=== PATIENT | female | born 1945 | race Caucasian/White ===

== ENCOUNTER 2018-01-08 01:39 | Outpatient (CLI) | payer MEDICARE, BC, SELFPAY ==
[2018-01-08 13:10] LABS: HCT 36.3 % (36.0-46.0); HGB 11.4 g/dL (12.0-15.5); Mean Corp. HGB Concentration 31.4 g/dL (32.0-36.0); Mean Corpuscular Volume 82.9 fL (80-95); Mean Platelet Volume 10.7 fL (8.0-11.0); Platelet Count 372 x1000/uL (130-400); RBC 4.38 m/cumm (4.00-5.20); RBC Distribution Width 14.1 % (11.7-14.6); White Blood Cell Count 7.98 k/cumm (4.4-10.8)
[2018-01-08 13:24] LABS: Iron 37 ug/dL (50-175)
[2018-01-08 13:25] LABS: Hemoglobin A1C 7.5 % (4.5-6.2)
== END 2018-01-08 01:59 ==
PROVIDERS: PCP Family Medicine; Visit Provider Family Medicine
DX: I10 Essential (primary) hypertension (principal); E11.9 Type 2 diabetes mellitus without complications; D50.8 Other iron deficiency anemias
CPT/HCPCS: 36415; 85027; 83036; 83540

== ENCOUNTER 2018-04-06 00:59 | Outpatient (CLI) | payer MEDICARE, BC, SELFPAY ==
[2018-04-06 11:42] LABS: Hemoglobin A1C 8.3 % (4.5-6.2)
[2018-04-06 13:14] LABS: Iron 35 ug/dL (50-175)
[2018-04-06 13:28] LABS: Ferritin 45 ng/mL (8-388)
== END 2018-04-06 01:19 ==
PROVIDERS: PCP Family Medicine; Visit Provider Family Medicine
DX: M25.551 Pain in right hip (principal); E11.9 Type 2 diabetes mellitus without complications; D64.9 Anemia, unspecified; I10 Essential (primary) hypertension
CPT/HCPCS: 36415; 82728; 83036; 83540

== ENCOUNTER 2018-08-29 21:50 | Emergency (ER) | payer MEDICARE, BC, SELFPAY ==
[2018-08-29 22:13] VITALS: BP 140/79; PULSE 80; RESP 16; TEMP 36.5; O2SAT 95
--- NOTE | 2018-08-29 22:42 | ED.GENADUL_ITS ---
Discharge Plan Disposition Patient Disposition: HOME Condition: Good Discharge Details Chief Complaint: DentalOral Clinical Impression: Lesion of tongue Primary Care Provider: Pat Pearson ED Provider: Yao Jaramillo Home Meds and New Rx's Prescriptions: No Action metformin 1,000 mg tablet See Rx Instructions PO BID Qty: 270 RF: 4 glipizide 10 mg tablet extended release 24hr 10 mg PO DAILY Qty: 90 RF: 5 aspirin [Ecotrin Low Strength] 81 MG tablet,delayed release (DR/EC) 81 mg PO DAILY RF: 0 glucosam-chond fg-resgln-xh ac 1 EACH capsule 1 ea PO BID RF: 0 calcium carbonate-vitamin D3 [Os-Reji 500 + D3] 1 EACH tablet 1 ea PO BID RF: 0 CENTRUM SILVER TABLET 1 EACH tablet 1 ea PO DAILY RF: 0 ascorbic acid (vitamin C) [Vitamin C] 500 MG tablet 1 tab PO DAILY RF: 0 blood-glucose meter 1 EACH misc 1 ea Miscellaneous ONCE Qty: 1 RF: 0 amoxicillin 500 MG tablet 2 g PO ONCE RF: 0 Blood Glucose Test 1 EACH strip 1 ea Miscellaneous DAILY Qty: 100 RF: 12 lancets 1 EACH misc 1 ea Miscellaneous DAILY Qty: 100 RF: 4 Fiber Gummies (with chromium) 1 EACH tablet,chewable 1 ea PO DAILY RF: 0 albuterol sulfate [ProAir HFA] 8.5 GM HFA aerosol inhaler 2 puff Inhalation Q4H PRN Qty: 1 RF: 12 ferrous sulfate [Iron (ferrous sulfate)] 325 MG tablet 325 mg PO DAILY RF: 0 lisinopril 5 mg tablet 5 mg PO DAILY Qty: 90 RF: 12 pravastatin 20 mg tablet 20 mg PO DAILY Qty: 90 RF: 12 sertraline [Zoloft] 100 mg tablet 50 mg PO DAILY Qty: 45 RF: 4 Discharge Instructions Additional Instructions: Please switch to a soft diet, avoid any foods with which require excessive chewing. You will be contacted for an appointment with the ENT specialist. If you notice any bleeding, please apply firm pressure with 3-4 fingers for 5 to 10 minutes straight. If you notice any worsening of your symptoms, or any new symptoms such as vomiting, diarrhea, fever, chills, shortness of breath, chest pain, numbness, weakness, or fainting , please return immediately to the emergency department for reevaluation. Please follow up with your primary care provider as soon as possible for reassessment and reevaluation. As always, it was a pleasure participating in your medical care today. Referrals: Pat Pearson MD, DC [Primary Care Provider] - Medical Decision Making This is a pleasant 72-year-old female who presents with a lesion on her tongue for the last 3 weeks, she has dental referral already. Tonight she was eating and cottage on her teeth which caused it to bleed. She applied pressure and came to the ER but upon arrival to bleeding had stopped. Exam demonstrates a notably vascular but otherwise nonbleeding lesion on the tip of her tongue. Pain is well controlled and bleeding is completely ceased. This time I do not think that any acute intervention is currently indicated. We will continue to recommend follow-up with her dentist, but we will also given ENT referral for further outpatient evaluation. I have extensively reviewed the treatment plan and discharge instructions with the patient and their family. I have addressed all patient concerns at this time. The patient and family was made aware of what symptoms to monitor for that would warrant a return to the emergency department. Discussed the plan with the patient and family, they demonstrate verbal understanding and agreement with our assessment and plan at this time. HPI General Date/Time Provider Initiated Documentation: 08/29/18 21:51 . HPI Narrative: This is a 72-year-old female with no significant pertinent past medical history who is on no blood thinners but does take a daily aspirin who presents today for evaluation of a lesion on her tongue. She states that she has had this lesion for the last 3 weeks, she is followed up with her family do ray who has scheduled an outpatient referral with her dental office for removal. She states that today while eating she cut it on her tongue and then had some mild to moderate bleeding for the last hour or so. She came to the ER for further evaluation. By the time she arrived the bleeding had stopped. She denies any other complaints. No other modifying factors. She denies any history of oral cancer, and states that initially it came on when she had bit it after catching it on a sharp tooth. She denies any symptoms of fever chills or weight loss. Related Data Home Medications Medication Instructions Recorded Confirmed Centrum Silver Tablet 1 ea PO DAILY 08/22/12 08/28/18 aspirin [Ecotrin Low Strength] 81 mg PO DAILY tab-cap 08/22/12 08/28/18 calcium carbonate-vitamin D3 1 ea PO BID 08/22/12 08/28/18 [Os-Reji 500 + D3] glucosam-chond xo-swjgsx-al ac 1 ea PO BID 08/22/12 08/28/18 ascorbic acid (vitamin C) [Vitamin 1 tab PO DAILY 08/23/12 08/28/18 C] blood-glucose meter #1 ea 07/30/13 08/28/18 amoxicillin 2 g PO ONCE tab-cap 07/13/15 08/28/18 blood sugar diagnostic [Blood #100 strip 04/06/16 08/28/18 Glucose Test] lancets #100 ea 04/06/16 08/28/18 inulin-chromium picolinate [Fiber 1 ea PO DAILY tab.chew 11/24/16 08/28/18 Gummies] albuterol sulfate [Proair Hfa] 2 puff INHALATION Q4H PRN #1 02/23/17 08/28/18 canister ferrous sulfate [Iron] 325 mg PO DAILY 05/30/17 08/28/18 lisinopril 5 mg tablet 5 mg PO DAILY #90 tab-cap 03/01/18 08/28/18 pravastatin 20 mg tablet 20 mg PO DAILY #90 tab-cap 03/01/18 08/28/18 sertraline 100 mg tablet 50 mg PO DAILY #45 tab-cap 03/01/18 08/28/18 glipizide ER 10 mg tablet, 10 mg PO DAILY #90 tab-cap 04/09/18 08/28/18 extended release 24 hr metformin 1,000 mg tablet See Rx Instructions PO BID #270 04/09/18 08/28/18 tab-cap Previous Rx's Medication Instructions Recorded albuterol sulfate [Proair Hfa] 2 puff INHALATION Q4H PRN #1 02/23/17 canister lisinopril 5 mg tablet 5 mg PO DAILY #90 tab-cap 03/01/18 pravastatin 20 mg tablet 20 mg PO DAILY #90 tab-cap 03/01/18 sertraline 100 mg tablet 50 mg PO DAILY #45 tab-cap 03/01/18 glipizide ER 10 mg tablet, 10 mg PO DAILY #90 tab-cap 04/09/18 extended release 24 hr metformin 1,000 mg tablet See Rx Instructions PO BID #270 04/09/18 tab-cap Allergies Allergy/AdvReac Type Severity Reaction Status Date / Time clams Allergy Intermediate Violent Unverified 08/28/18 08:53 diarrhea atropine Allergy Unknown RASH Unverified 08/28/18 08:53 diphenoxylate Allergy Unknown SKIN RASH Unverified 08/28/18 08:53 propoxyphene Allergy Unknown SENSITIVITY Unverified 08/28/18 08:53 General Stated Complaint: DentalOral JEAN MARIE: 3 Review of Systems Review of Systems All systems reviewed & are unremarkable except as noted in HPI and below PFSH Medical History Sensory hearing loss, bilateral (Chronic 01/13/14) Right lumbar radiculopathy (Chronic 05/26/14) Right hip pain (Chronic 11/24/16) Heart murmur (Chronic) Essential hypertension (Chronic 02/22/13) Diverticulosis of colon without diverticulitis (Chronic 04/12/13) Diabetes mellitus (Chronic 07/30/13) Depressive disorder (Chronic) Acute meniscal tear of right knee (Resolved) Anemia (Resolved 03/29/16) Chondromalacia, right knee (Resolved) Closed fracture of humerus (Resolved) Closed fracture of skull (Resolved) Hemorrhoids (Resolved 04/12/13) Plantar fasciitis (Resolved) RLQ fullness (Resolved 08/23/12) Sciatica (Resolved) URI, acute (Resolved 12/25/14) Essential hypertension Seasonal allergic rhinitis Surgical History H/O shoulder surgery (Resolved) S/P laparoscopic hysterectomy (Resolved) S/p total knee replacement, bilateral (Resolved) Hysterectomy, Laproscopic (~1985) PROCEDURES , Ectopic Replacement of total knee joint (~05/2009) Family History Mother Alcohol abuse Asthma Father Personal history of malignant neoplasm MRSA infection Sister Diabetes Essential hypertension Depression Heart disease Hyperlipidemia Brother Substance abuse Alcohol abuse Personal history of malignant neoplasm Asthma Brother Personal history of malignant neoplasm Grandfather No problems noted. Grandfather No problems noted. Grandmother Personal history of malignant neoplasm Grandmother No problems noted. FAMILY HISTORY Glaucoma Daughter No problems noted. Daughter No problems noted. Social History Smoking/Tobacco Use Status: Former Tobacco Use Alcohol Intake: current Alcohol Intake frequency: a few times a month Drug use: Never Substance use type: does not use Pets and animals: Yes Pets and animals: cat(s) Duration: 30-45 minutes/day Frequency: 5-6 times per week Special caitlin needs: No Exam Narrative Exam Narrative: 1.Const: Well-nourished, Well-developed, appearing stated age 2.Eyes: PERRL, no conjunctival injection, and symmetrical lids. 3.ENT: Atraumatic external nose and ears. Moist MM. Neck: Symmetric, trachea midline, No thyromegaly. There is a small papillary lesion with a central stalk that is notably vascular but not bleeding. It is on the tip of the tongue. No other abnormalities. 4.CVS: +S1/S2, No murmurs or gallops. Peripheral pulses 2+ and equal in all extremities. Brisk capillary refill in all extremities. 5.RESP: Unlabored respiratory effort. Clear to auscultation bilaterally. No wheezes rales or rhonchi 6.GI: Soft, Nontender/Nondistended, No hepatosplenomegaly. No guarding or rebound. 7.MSK: Normocephalic/Atraumatic, Extremities w/o deformity or ttp No cyanosis or clubbing, Normal movement of all extremities 8.Skin: Warm, Dry. No rashes or lesions. 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 Sensation grossly intact, no focal neurologic deficits. 10.Psych: (AAO) x3. Appropriate mood and affect Course Vital Signs Temperature 36.5 C 08/29/18 22:13 Pulse 80 08/29/18 22:13 Respiratory Rate 16 08/29/18 22:13 Blood Pressure 140/79 08/29/18 22:13 Pulse Oximetry 95 08/29/18 22:13 Temperature 36.5 C 08/29/18 22:13 Temperature Source Temporal Artery Scan 08/29/18 22:13 Pulse 80 08/29/18 22:13 Respiratory Rate 16 08/29/18 22:13 Blood Pressure 140/79 08/29/18 22:13 Pulse Oximetry 95 08/29/18 22:13 Oxygen Delivery Method Room Air 08/29/18 22:13 Oxygen Flow Rate 0 08/29/18 22:13 Pain Level 3 08/29/18 22:13
--- NOTE | 2018-08-30 08:51 | NUR.NOTE ---
Nursing Note: Referral faxed to [facility] for follow up. Nicole Jose.
== END 2018-08-29 22:46 | disposition home or self-care (01) ==
PROVIDERS: Emergency Provider Student in an Organized Health Care Education/Training Program; PCP Family Medicine
DX: K14.8 Other diseases of tongue (principal); E11.9 Type 2 diabetes mellitus without complications; I10 Essential (primary) hypertension; Z79.84 Long term (current) use of oral hypoglycemic drugs
CPT/HCPCS: 99282

== ENCOUNTER 2018-09-03 13:41 | Outpatient (REF) | payer MEDICARE, BC, SELFPAY ==
--- NOTE | 2018-09-03 12:03 | SKI_PTH ---
PATIENT: Linsey Kathleen LOC: [facility] U#:[id number] AGE/SX: 72/F ROOM: RE09/03/[address]: Modesto Bills DO : 1945 BED: DIS: 09/03/2018 SPEC #: [id number] RECD: 09/03/18 18:18 STATUS: LUCIA REShagufta #: [id number] MARU: 09/03/18 12:[address]: Modesto Bills DEPT: Surgical Specimen RECD BY: Rosa Ross ENTERED: 09/03/18 18:19 SP TYPE: ESSENCE AMAYA DR: Pat Pearson MD, DC Tissues: 1 - SKIN BIOPSY(SHAVE/PUNCH) 2 - TONGUE BIOPSY Procedures: GROSS AND MICRO LEVEL 4 SKIN LEVEL 4 SPECIAL STAIN 1 Comments: [id number]
== END 2018-09-03 14:01 ==
LOC: LBN 13:41
PROVIDERS: PCP Family Medicine; Visit Provider Otolaryngology Otolaryngology/Facial Plastic Surgery
DX: D04.4 Carcinoma in situ of skin of scalp and neck (principal); K13.4 Granuloma and granuloma-like lesions of oral mucosa; K14.0 Glossitis
CPT/HCPCS: 88305; 88312

== ENCOUNTER 2018-10-05 02:18 | Outpatient (CLI) | payer MEDICARE, BC, SELFPAY ==
[2018-10-05 12:54] LABS: HCT 36.9 % (36.0-46.0); HGB 11.4 g/dL (12.0-15.5); Mean Corp. HGB Concentration 30.9 g/dL (32.0-36.0); Mean Corpuscular Hemoglobin 25.1 pg (27.0-33.0); Mean Corpuscular Volume 81.1 fL (80-95); Mean Platelet Volume 11.1 fL (8.0-11.0); Platelet Count 369 x1000/uL (130-400); RBC 4.55 m/cumm (4.00-5.20); RBC Distribution Width 15.4 % (11.7-14.6); White Blood Cell Count 6.94 k/cumm (4.4-10.8)
[2018-10-05 13:21] LABS: Iron 33 ug/dL (50-175)
[2018-10-05 13:23] LABS: Calculated LDL 67 mg/dL; Cholesterol 116 mg/dL (50-200); HDL Cholesterol 35 mg/dL (40-60); Triglyceride 70 mg/dL (30-150)
[2018-10-05 13:26] LABS: COMMENT (LAB VIEW ONLY) 81.57 mg/dL; Microalb ug/mg Crea 16.1 ug/mg Cr
[2018-10-05 13:55] LABS: Hemoglobin A1C 7.5 % (4.5-6.2)
== END 2018-10-05 02:38 ==
PROVIDERS: PCP Family Medicine; Visit Provider Family Medicine
DX: D64.9 Anemia, unspecified (principal); E11.9 Type 2 diabetes mellitus without complications; I10 Essential (primary) hypertension
CPT/HCPCS: 36415; 80061; 83721; 85027; 82043; 82570; 83036; 83540

== ENCOUNTER 2018-11-06 01:36 | Outpatient (CLI) | payer MEDICARE, BC, SELFPAY ==
--- NOTE | 2018-11-06 07:29 | MERGE_ITS ---
*[facility]* *[facility]* [address] [place] [address] Date of study: 11/06/2018 Transthoracic Echocardiography M-mode, complete 2D, complete spectral Doppler, and color Doppler *STUDY CONCLUSIONS* Summary: 1. Left ventricle: The cavity size was normal. Wall thickness was increased in a pattern of mild LVH. There was severe focal basal hypertrophy of the septum. Systolic function was vigorous. The estimated ejection fraction was 65-70%. There was no dynamic obstruction. Wall motion was normal; there were no regional wall motion abnormalities. 2. Aortic valve: Noncoronary cusp mobility was severely restricted. There was mild to moderate stenosis. Peak velocity (S): 2.9m/sec. Mean gradient (S): 20.6mm Hg. Valve area (VTI): 1.3cm^2. 3. Mitral valve: Moderately calcified annulus. 4. Left atrium: The atrium was mildly dilated. 5. Right ventricle: The cavity size was normal. Wall thickness was normal. Systolic function was normal. 6. Pulmonary arteries: Pulmonary systolic pressure was increased, in the range of 35mm Hg to 40mm Hg. *PATIENT PRESENTATION* Height: 157.5cm (62in ) S/D Pressure: 112 / 62 Weight: 59.4kg (130.7lb ) BSA: 1.62m^2 Test start time: 07:40 AM. Test stop time: 08:40 AM. CONSULTING Pat eParson ORDERING Pat Pearson REFERRING Pat Pearson PERFORMING Unknown PERFORMING [facility] OIL SPRAYER RT Laina Babin)(CT), RDCS *PROCEDURE DATA* Procedure information: The patient was identified by two identifiers. This study was interpreted by [facility]. Pertinent images and digital data are archived for permanent storage and are available for subsequent review. No prior study was available for comparison. Study status: Routine. Transthoracic echocardiography. M-mode, complete 2D, complete spectral Doppler, and color Doppler. A Transthoracic Echocardiogram was performed. Scanning was performed from the parasternal, apical, subcostal, and suprasternal notch acoustic windows. Images were obtained using an [id number] cardiac ultrasound machine. Image quality was adequate. Study completion: The patient tolerated the procedure well. There were no complications. History: PMH: cardiac murmur r01.1. *CARDIAC ANATOMY* Left ventricle: The cavity size was normal. Wall thickness was increased in a pattern of mild LVH. There was severe focal basal hypertrophy of the septum. Systolic function was vigorous. The estimated ejection fraction was 65-70%. There was no dynamic obstruction. Wall motion was normal; there were no regional wall motion abnormalities. Findings consistent with diastolic dysfunction. Aortic valve: Trileaflet; moderately calcified leaflets. Noncoronary cusp mobility was severely restricted. Doppler: There was mild to moderate stenosis. There was no significant regurgitation. VTI ratio of LVOT to aortic valve: 0.45. Valve area (VTI): 1.3cm^2. Indexed valve area (VTI): 0.8cm^2/m^2. Peak velocity ratio of LVOT to aortic valve: 0.48. Valve area (Vmax): 1.4cm^2. Indexed valve area (Vmax): 0.8cm^2/m^2. Mean velocity ratio of LVOT to aortic valve: 0.47. Valve area (Vmean): 1.3cm^2. Indexed valve area (Vmean): 0.8cm^2/m^2. Mean gradient (S): 20.6mm Hg. Peak gradient (S): 34.3mm Hg. Aorta: Aortic root: The aortic root was normal in size. Ascending aorta: The ascending aorta was normal in size. Mitral valve: Moderately calcified annulus. Mobility was not restricted. Doppler: Transvalvular velocity was within the normal range. There was no evidence for stenosis. There was trivial regurgitation. Valve area by pressure half-time: 3.8cm^2. Indexed valve area by pressure half-time: 2.3cm^2/m^2. Peak gradient (D): 3mm Hg. Left atrium: The atrium was mildly dilated. Right ventricle: The cavity size was normal. Wall thickness was normal. Systolic function was normal. Pulmonic valve: Doppler: Transvalvular velocity was within the normal range. There was no evidence for stenosis. There was no significant regurgitation. Peak gradient (S): 3.7mm Hg. Tricuspid valve: Structurally normal valve. Doppler: Transvalvular velocity was within the normal range. There was no evidence for stenosis. There was mild regurgitation. Pulmonary artery: Pulmonary systolic pressure was increased, in the range of 35mm Hg to 40mm Hg. Right atrium: The atrium was normal in size. Pericardium: There was no pericardial effusion. Systemic veins: Inferior vena cava: Well visualized. The vessel was patent and normal in size. The respirophasic diameter changes were in the normal range (greater than or equal to 50%). Baseline ECG: Normal sinus rhythm. Measurements Left ventricle Value Reference LV ID, ED, PLAX 4.3 cm 3.5 - 6.0 LV ID, ES, PLAX 2.5 cm 2.1 - 4.0 LV PW thickness, ED, PLAX 1.1 cm LV end-diastolic volume, 1-p A2C 76 ml LV ejection fraction, 1-p A2C 79 % LV end-diastolic volume, 1-p A4C 52 ml LV ejection fraction, 1-p A4C 72 % LV e', lateral 0.092 m/sec LV E/e', lateral 9 LV e', medial 0.083 m/sec LV E/e', medial 10 LV e', average 0.088 m/sec LV E/e', average 10 Ventricular septum Value Reference IVS thickness, ED, PLAX 1.1 cm LVOT Value Reference LVOT ID, A-P 1.9 cm LVOT area 2.8 cm^2 LVOT peak velocity, S 1.4 m/sec LVOT mean velocity, S 1.03 m/sec LVOT VTI, S 30.2 cm LVOT peak gradient, S 7.9 mm Hg LVOT mean gradient, S 4.6 mm Hg Stroke volume (SV), LVOT DP 85 ml Stroke index (SV/bsa), LVOT DP 53 ml/m^2 Aortic valve Value Reference Aortic valve peak velocity, S 2.9 m/sec Aortic valve mean velocity, S 2.2 m/sec Aortic valve VTI, S 67.0 cm Aortic mean gradient, S 20.6 mm Hg Aortic peak gradient, S 34.3 mm Hg VTI ratio, LVOT/AV 0.45 Aortic valve area, VTI 1.3 cm^2 Velocity ratio, peak, LVOT/AV 0.48 Aortic valve area, peak velocity 1.4 cm^2 Velocity ratio, mean, LVOT/AV 0.47 Aortic valve area, mean velocity 1.3 cm^2 Aortic valve area/bsa, mean velocity 0.8 cm^2/m^2 Aorta Value Reference Aortic root ID, ED 2.8 cm Ascending aorta ID, A-P, S 3.3 cm Left atrium Value Reference LA ID, A-P, ES 3.6 cm LA ID/bsa, A-P 2.2 cm/m^2 <=2.2 LA volume/bsa, ES, 1-p A4C 34 ml/m^2 LA volume, ES, 2-p 56 ml LA volume/bsa, ES, 2-p 35 ml/m^2 LA/aortic root ratio 1.3 Mitral valve Value Reference Mitral E-wave peak velocity 0.86 m/sec Mitral A-wave peak velocity 1.13 m/sec Mitral deceleration time 199 ms 150 - 230 Mitral pressure half-time 58 ms Mitral peak gradient, D 3 mm Hg Mitral E/A ratio, peak 0.76 Mitral valve area, PHT, DP 3.8 cm^2 Pulmonary veins Value Reference Pulmonary vein peak velocity, S 0.72 m/sec Pulmonary vein peak velocity, D 0.48 m/sec Pulmonary vein velocity ratio, peak, 1.5 S/D Pulmonary vein A-wave reversal peak 0.29 m/sec velocity Tricuspid valve Value Reference Tricuspid regurg peak velocity 3 m/sec Tricuspid peak RV-RA gradient 37 mm Hg Right atrium Value Reference RA area, ES, A4C 14.5 cm^2 8.3 - 19.5 Pulmonic valve Value Reference Pulmonic peak gradient, S 3.7 mm Hg Legend: (L) and (H) дмитрий values outside specified reference range. I have personally reviewed the images and have reviewed and edited the reported findings. Electronically signed by Sean Cortez 11/06/2018 10:34
== END 2018-11-06 01:56 ==
PROVIDERS: PCP Family Medicine; Visit Provider Family Medicine
DX: R01.1 Cardiac murmur, unspecified (principal); I35.0 Nonrheumatic aortic (valve) stenosis; I51.7 Cardiomegaly
CPT/HCPCS: 93306

== ENCOUNTER 2018-11-22 00:37 | Outpatient (CLI) | payer MEDICARE, BC, SELFPAY ==
--- NOTE | 2018-11-22 15:27 | DI.MAMMO_ITS ---
SYMPTOM/DIAGNOSIS: SCREENING Z12.31 BILATERAL SCREENING MAMMOGRAM: Mammograms were interpreted according to the usual protocol including computer analysis with CAD system, tomosynthesis and C view imaging. Comparison is made with exams from 2010 through 2017. The breasts are composed of fatty density tissue, breast density category A. In the inferior left breast on the MLO view, there is a focal asymmetry. No corresponding abnormality is seen on the CC view. Spot compression view is requested for further evaluation. In the right axillary region, there is an apparent lymph node containing two calcifications. It is not included on the CC view. It appears to have increased in size when compared with the previous exam. Spot compression views and ultrasound are requested for further evaluation. IMPRESSION: Bilateral Category 0, breast density category A. SA ASSESSMENT OF FINDINGS: Incomplete: Needs additional imaging evaluation. Category 0. Patient will receive a letter notifying them of these results. BI-RAD category A. The breasts are almost entirely fatty.
== END 2018-11-22 00:57 ==
PROVIDERS: PCP Family Medicine; Visit Provider Family Medicine
DX: Z12.31 Encounter for screening mammogram for malignant neoplasm of breast (principal); R92.8 Other abnormal and inconclusive findings on diagnostic imaging of breast; R59.0 Localized enlarged lymph nodes
CPT/HCPCS: 77063; 77067

== ENCOUNTER 2018-12-04 00:25 | Outpatient (CLI) | payer MEDICARE, BC, SELFPAY ==
--- NOTE | 2018-12-04 14:22 | DI.COMBO_ITS ---
SYMPTOMS/DIAGNOSIS: LEFT BREAST ASYMMETRY ON MLO VIEW, RIGHT AXILLARY LYMPH NODE CONTAINING TWO CALCIFICATIONS, INCREASED IN SIZE ADDITIONAL MAMMOGRAPHIC VIEWS, RIGHT BREAST: Additional images are interpreted according to the usual protocol including tomosynthesis and 2D imaging. Additional mammographic views of the right breast were obtained to evaluate a nodule seen on recent mammogram. There is a skin lesion corresponding to the mammographic abnormality and this is confirmed on examination of the patient. No suspicious intramammary mass seen. CONCLUSION: No evidence of intramammary mass. Routine screening examinations recommended. Category 1, breast density B. ADDITIONAL MAMMOGRAPHIC VIEWS, LEFT BREAST, AND LEFT BREAST ULTRASOUND: Additional images are interpreted according to the usual protocol including tomosynthesis and 2D imaging. Additional mammographic views of the left breast and left breast ultrasound were obtained to evaluate a questionable area of asymmetric density of the inferior aspect of the left breast seen on recent mammogram. Additional mammographic views fail to show a discrete mass. Breast ultrasound shows no evidence of a mass or cyst. CONCLUSION: No specific evidence of malignancy at this time. Follow-up unilateral left breast mammogram recommended in six months. Category 3, breast density category B. MQSA ASSESSMENT OF FINDINGS: Probably benign. Six month follow-up recommended. Category 3. Patient will receive a letter notifying them of these results. MQSA ASSESSMENT OF FINDINGS: Negative. Category 1. Patient will receive a letter notifying them of these results. BI-RADS category B. There are scattered areas of fibroglandular density.
== END 2018-12-04 00:45 ==
PROVIDERS: PCP Family Medicine; Visit Provider Family Medicine
DX: Z12.31 Encounter for screening mammogram for malignant neoplasm of breast (principal); R92.8 Other abnormal and inconclusive findings on diagnostic imaging of breast; N64.59 Other signs and symptoms in breast; R59.0 Localized enlarged lymph nodes
CPT/HCPCS: 76642; 77063; 77067

== ENCOUNTER 2019-02-18 10:03 | Outpatient (CLI) | payer MEDICARE, BC, SELFPAY ==
[2019-02-18 13:05] LABS: HCT 38.8 % (36.0-46.0); Mean Corp. HGB Concentration 30.9 g/dL (32.0-36.0); Mean Corpuscular Hemoglobin 25.3 pg (27.0-33.0); Mean Corpuscular Volume 81.9 fL (80-95); Mean Platelet Volume 10.1 fL (8.0-11.0); Platelet Count 411 x1000/uL (130-400); RBC 4.74 m/cumm (4.00-5.20); White Blood Cell Count 8.13 k/cumm (4.4-10.8)
[2019-02-18 13:19] LABS: Iron 63 ug/dL (50-170)
[2019-02-18 14:08] LABS: Hemoglobin A1C 7.6 % (4.5-6.2)
[2019-02-18 14:41] LABS: Ferritin 43 ng/mL (8-252); TSH (W/Ref FT4) 3.38 uIU/mL (0.36-3.74); Vitamin B12 741 pg/mL (193-986)
== END 2019-02-18 10:23 ==
PROVIDERS: PCP Family Medicine; Visit Provider Family Medicine
DX: D64.9 Anemia, unspecified (principal); E11.9 Type 2 diabetes mellitus without complications; I27.20 Pulmonary hypertension, unspecified
CPT/HCPCS: 36415; 85027; 82607; 82728; 83036; 83540; 84443

== ENCOUNTER 2019-03-18 09:29 | Outpatient (CLI) | payer MEDICARE, BC, SELFPAY ==
[2019-03-18 13:10] LABS: ALT 17 U/L (14-59); AST 13 U/L (15-37); Albumin 3.2 g/dL (3.4-5.0); Alkaline Phosphatase 51 U/L (46-116); BUN 29 mg/dL (7-18); Bilirubin, Total 0.2 mg/dL (0.2-1.0); CREATININE 0.96 mg/dL (0.55-1.02); Calcium 8.8 mg/dL (8.5-10.1); Chloride 103 mmol/L (98-107); Estimated GFR 56.81 (mL/min/1.73m2); Glucose 325 mg/dL (74-106); Potassium 4.1 mmol/L (3.5-5.1); Sodium 140 mmol/L (136-145); Total Protein 7.3 g/dL (6.4-8.2)
[2019-03-19 09:12] LABS: Hemoglobin A1C 7.7 % (3.8-5.6)
== END 2019-03-18 09:49 ==
PROVIDERS: PCP Family Medicine; Visit Provider Family Medicine
DX: I10 Essential (primary) hypertension (principal); E11.9 Type 2 diabetes mellitus without complications; C44.92 Squamous cell carcinoma of skin, unspecified
CPT/HCPCS: 36415; 80053; 83036

== ENCOUNTER 2019-05-20 09:44 | Outpatient (CLI) | payer MEDICARE, BC, SELFPAY ==
[2019-05-20 16:48] LABS: Hemoglobin A1C 7.5 % (3.8-5.6)
== END 2019-05-20 10:04 ==
PROVIDERS: PCP Family Medicine; Visit Provider Family Medicine
DX: E11.9 Type 2 diabetes mellitus without complications (principal)
CPT/HCPCS: 36415; 83036

== ENCOUNTER 2019-06-19 01:30 | Outpatient (CLI) | payer MEDICARE, BC, SELFPAY ==
--- NOTE | 2019-06-19 14:15 | DI.MAMMO_ITS ---
EXAM: MG MAMMO DIAGNOSTIC UNI CLINICAL HISTORY: 6 MO F/U ABNORMAL MAMMO, R92.8, Z09 TECHNIQUE: Left full field digital CC and MLO mammographic images were obtained with 3D tomosynthesi s and utilizing computer aided detection (CAD). COMPARISON: Available for comparison. FINDINGS: Masses/Architectural Distortion: None seen. There are stable nodules in the left breast. Microcalcifications: No suspicious pleomorphic-type are seen. Skin Thickening/Nipple Retraction: None. IMPRESSION: 1. No significant interval change with no specific features of malignancy noted. 2. Six-month follow-up left mammogram is recommended for re-evaluation. BI-RADS Cat 3 - 6 month - Probably Benign Finding: Recommend follow-up mammography in 6 months Breast Density - Category B - Scattered areas of fibroglandular density The findings were discussed with the patient on the date of the examination. A negative radiographic report should not delay biopsy if a dominant or clinically suspicious mass is present. Up to ten percent of cancers are not identified on mammography. A negative report may reinforce clinical impression. Adenosis and dense breasts may obscure an underlying neoplasm. False positive reports average 6 to 10%. Patient will receive a letter notifying them of these results.
== END 2019-06-19 01:50 ==
PROVIDERS: PCP Family Medicine; Visit Provider Family Medicine
DX: Z12.31 Encounter for screening mammogram for malignant neoplasm of breast (principal); R92.8 Other abnormal and inconclusive findings on diagnostic imaging of breast; N60.82 Other benign mammary dysplasias of left breast
CPT/HCPCS: 77061; 77065; G0279

== ENCOUNTER 2019-06-24 01:04 | Outpatient (CLI) | payer MEDICARE, BC, SELFPAY ==
--- NOTE | 2019-06-24 06:45 | DI.NM_ITS ---
APPROVED REPORT Exam: Pharmacologic Patient Location: Out-Patient Room/Bed: Stress Nurse: Rajwinder Lopez RN BMI: 23.95 Baseline Rhythm: Sinus Rhythm Indications: Pre-op. Chest pain. Cardiac anomalies. Per pt's report she is here for a pre-operative s creening for planned surgury at [facility] to repair a brain aneurysm. Medical History Medical History: HTN, Diabetes. Brain aneursym. Allergies: Clams. Atropine. Diphenoxylate. Propoxyphene. Cardiac Risk Factors: HTN, DM, FHX of CAD Pretest Chest Pain Characteristics: No chest pain Exercise History: Physically active Lung Sounds: Clear to auscultation Heart Sounds: Murmur Stress Test Details Test: Pharmacologic stress testing performed using 0.4 mg of regadenoson per 5 mL given IV over 10 s econds. Nuclear Acquisition: Rest Tc-99m/Stress Tc-99m 1 day Rest Isotope: Tc-99m Sestamibi. Dose: 10.5 Date: 06/24/2019 Injection Time: 0900 Stress Isotope: Tc-99m Sestamibi. Dose: 32.3 Date: 06/24/2019 Injection Time: 1042 HR Resting HR Supine: 118/70 bpm Max Heart Rate (APMHR): 146 bpm Target HR (85% APMHR): 124 bpm Max HR Achieved: 93 bpm % of APMHR: 63 HR response to stress: Normal HR response to stress BP Resting BP Supine: 118/70 mmHg Max BP: 128/66 mmHg Recovery BP: 120/62 mmHg BP response to stress: Normal blood pressure response to stress. ECG Resting ECG: Sinus Rhythm Stress ECG: Sinus Rhythm ST Change: No significant ST segment changes Recovery ECG: Sinus Rhythm Recovery ST Change: No significant ST segment changes Clinical Stress Symptoms: No side effects experienced from Lexiscan injection Exercise duration: 6 min52 sec Stress ECG Conclusion 1. The patient underwent pharmacologic stress. 2. Blunted heart rate and blood pressure response. Patient's peak heart rate was 63% of maximal pre dicted for age. 3. Electrocardiographically the test was nondiagnostic due to inadequate heart rate 4. There were no significant dysrhythmias Protocol Used: Regadenoson Stress Test Summary STAGE HR BP Symptoms NOTES Supine 67 118/70 1 min post Lexiscan injection 93 120/68 3 min post Lexiscan injection 88 128/66 6 min post Lexiscan injection 85 120/62 MPI Conclusion No significant myocardial ischemia or evidence of prior infarction
[2019-06-24] MEDS: Regadenoson 0.4 MG/5 ML SYR IVP (10:55)
== END 2019-06-24 01:24 ==
PROVIDERS: PCP Family Medicine; Visit Provider Family Medicine
DX: R07.89 Other chest pain (principal); I10 Essential (primary) hypertension; E11.9 Type 2 diabetes mellitus without complications; Z82.49 Family history of ischemic heart disease and other diseases of the circulatory system; Z01.810 Encounter for preprocedural cardiovascular examination; I67.1 Cerebral aneurysm, nonruptured
CPT/HCPCS: 78452; 93016; 93018; 93017; J2785

== ENCOUNTER → 2019-07-02 12:47 | Outpatient (BNVA) | payer MEDICARE, BC, SELFPAY | PROVIDERS: PCP Family Medicine; Referring Provider Family Medicine; Visit Provider Internal Medicine Cardiovascular Disease | DX: I27.20 Pulmonary hypertension, unspecified (principal); I35.9 Nonrheumatic aortic valve disorder, unspecified; I10 Essential (primary) hypertension; E11.9 Type 2 diabetes mellitus without complications | CPT/HCPCS: 99203; 99443 ==

== ENCOUNTER 2019-08-13 21:36 | Outpatient (REF) | payer MEDICARE, BC, SELFPAY ==
[2019-08-13 19:37] LABS: Bilirubin Negative (Negative); Blood Moderate (Negative); Clarity Clear (Clear); Glucose Negative (Negative); Ketones Negative (Negative); Leukocyte Esterase Small (Negative); Nitrite Positive (Negative); Specific Gravity 1.025 (1.005-1.025); Urobilinogen 0.2 EU/dL (Up TO 0.2); pH 5.5 (5-8)
[2019-08-13 19:58] LABS: Bacteria Many HPF (Negative); C & S Indicated? Yes; WBC >50 HPF (0-5)
== END 2019-08-13 21:56 ==
LOC: LBN 21:36
PROVIDERS: PCP Family Medicine; Visit Provider Family Medicine
DX: R30.0 Dysuria (principal)
CPT/HCPCS: 87077; 81003; 81015; 87086; 87186

== ENCOUNTER 2019-09-03 02:29 | Outpatient (CLI) | payer MEDICARE, BC, SELFPAY ==
--- NOTE | 2019-09-03 13:35 | DI.CT_ITS ---
EXAM: CT CHEST WO CLINICAL HISTORY: F/U ABNL XRAY,R93.89. TECHNIQUE: Imaging protocol: Axial computed tomography images were obtained and coronal and sagittal reformatted images were created and reviewed. COMPARISON: CT CT CHEST W CONTRAST from 04/04/2019 FINDINGS: Tracheobronchial tree: Patent where visualized. Mediastinum and Agatha: No dominant adenopathy or fluid collection. Pulmonary parenchyma: No consolidation. There is a stable left upper lobe pulmonary nodule. No new pulmonary nodules are present. Scarring or atelectasis is seen in the lung bases. Pleura: No effusion or pneumothorax. Heart: The heart is not dilated. Moderate coronary artery calcification is present. Mitral and aorti c valvular calcification is present. Aorta: Thoracic aorta non-dilated. Atherosclerosis. Upper abdomen: No significant findings. Lymph nodes: Within normal limits. Bones:Degenerative changes in the spine. Stable hemangioma T7 vertebral body. IMPRESSION: Stable left upper lobe pulmonary nodule. RADIATION DOSE DELIVERED: 439.33mGy.cm Total DLP 439.33mGy.cm Total DLP DATA REPOSITORY: All CT scans at this facility are submitted to the National Radiology Data Registry (NRDR) Dose Index Registry (DIR) with the [employer] (ACR). RADIATION OPTIMIZATION: All CT scans at this facility use at least one of these dose optimization te chniques: automated exposure control; mA and/or kV adjustment per patient size (includes targeted exa ms where dose is matched to clinical indication); or iterative reconstruction.
== END 2019-09-03 02:49 ==
PROVIDERS: PCP Family Medicine; Visit Provider Internal Medicine
DX: R91.8 Other nonspecific abnormal finding of lung field (principal); R91.1 Solitary pulmonary nodule
CPT/HCPCS: 71250

== ENCOUNTER 2019-09-03 02:32 | Outpatient (CLI) | payer MEDICARE, BC, SELFPAY ==
--- NOTE | 2019-09-03 13:35 | DI.CT_ITS ---
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 SKULL INVASION. TECHNIQUE: Imaging Protocol: Axial computed tomography images with coronal and sagittal reformatted images were created and reviewed COMPARISON: No exams were available for comparison FINDINGS: Ventricles and Extra axial spaces: Normal in size and morphology for the patient's age. Hemorrhage: None. Cerebral parenchyma: There are areas of decreased attenuation in the white matter most consistent wit h small vessel ischemic disease. Metallic artifact is seen in the region of the anterior cerebral ar teries which may represent aneurysm coiling. Please correlate with the patient's history. Midline shift: None. Brainstem/Cerebellum: Normal. Calvarium: There is thinning of the subcutaneous tissues overlying the frontal and parietal bones in the midline. This may be due to the patient's known history of squamous cell carcinoma of the scalp. There are areas of disruption of the outer cortex of the skull in this region. (Series 7, image 45 , series 7 and image 32, and series 7 image 38. No periosteal reaction is seen at this time. Visualized Paranasal sinuses/Mastoids: Clear. Soft Tissues: Please see above under calvarium. IMPRESSION: 1. No acute intracranial process. 2. Findings suspicious for cortical destruction involving the apex of the skull as described above. Involvement with primary neoplasm or metastatic disease should be considered. Infection cannot be ex cluded. An MRI without and with contrast should be considered for further evaluation. RADIATION DOSE DELIVERED: 609mGy.cm Total DLP DATA REPOSITORY: All CT scans at this facility are submitted to the National Radiology Data Registry (NRDR) Dose Index Registry (DIR) with the [employer] (ACR). RADIATION OPTIMIZATION: All CT scans at this facility use at least one of these dose optimization te chniques: automated exposure control; mA and/or kV adjustment per patient size (includes targeted exa ms where dose is matched to clinical indication); or iterative reconstruction.
== END 2019-09-03 02:52 ==
PROVIDERS: PCP Family Medicine; Visit Provider Preventive Medicine Undersea and Hyperbaric Medicine
DX: C44.42 Squamous cell carcinoma of skin of scalp and neck (principal); I67.82 Cerebral ischemia; R93.0 Abnormal findings on diagnostic imaging of skull and head, not elsewhere classified; R91.8 Other nonspecific abnormal finding of lung field; R91.1 Solitary pulmonary nodule
CPT/HCPCS: 71250; 70450

== ENCOUNTER 2019-10-15 04:12 | Outpatient (CLI) | payer MEDICARE, BC, SELFPAY ==
[2019-10-15 12:29] LABS: HGB 10.9 g/dL (12.0-15.5); Mean Corp. HGB Concentration 31.1 g/dL (32.0-36.0); Mean Corpuscular Hemoglobin 25.5 pg (27.0-33.0); Mean Platelet Volume 10.5 fL (8.0-11.0); Platelet Count 382 x1000/uL (130-400); RBC 4.27 m/cumm (4.00-5.20); RBC Distribution Width 14.7 % (11.7-14.6); White Blood Cell Count 7.93 k/cumm (4.4-10.8)
[2019-10-15 12:38] LABS: Iron 29 ug/dL (50-170)
[2019-10-15 12:47] LABS: Hemoglobin A1C 8.2 % (3.8-5.6)
[2019-10-15 12:51] LABS: Ferritin 34 ng/mL (8-252)
[2019-10-16 10:32] LABS: Hepatitis C Ab w Rflx HCV PCR Negative (Negative)
== END 2019-10-15 04:32 ==
PROVIDERS: PCP Family Medicine; Visit Provider Family Medicine
DX: E11.9 Type 2 diabetes mellitus without complications (principal); D50.9 Iron deficiency anemia, unspecified; I10 Essential (primary) hypertension; Z11.59 Encounter for screening for other viral diseases
CPT/HCPCS: 36415; 85027; 86803; 82728; 83036; 83540

== ENCOUNTER 2019-10-29 00:59 | Outpatient (CLI) | payer MEDICARE, BC, SELFPAY ==
--- NOTE | 2019-10-29 | DI.CT_ITS ---
EXAM: CT CHEST W CLINICAL HISTORY: 7 MM APICAL NODULE, R91.1 TECHNIQUE: CT examination of the chest was performed with a bolus infusion of 100 cc of Omnipaque 35 0. COMPARISON: CT CT CHEST W CONTRAST from 04/04/[address] CHEST WO from 09/03/2019 FINDINGS: Images obtained through the upper abdomen show unremarkable appearance of visualized portions of live r, spleen, pancreas, adrenals, and kidneys. The lungs are predominantly clear. There is a 7 x 4 millimeter mildly irregular left apical intrapul monary nodule as noted on prior CT from [facility], this appears essentially unchanged in co mparison with the prior examination. No other pulmonary nodule identified. No pleural effusion or pleural-based mass. No evidence of pul monary embolic disease. Thoracic aorta is of normal diameter. No mediastinal or hilar adenopathy. IMPRESSION: Stable 7 millimeter pulmonary nodule on six-month follow-up imaging. Follow-up chest CT recommended in 12 months.
[2019-10-29 14:31] LABS: Hemoglobin A1C 8.2 % (3.8-5.6)
[2019-10-29 14:33] LABS: CREATININE 0.61 mg/dL (0.55-1.02)
[2019-10-29] MEDS: Omnipaque 350 MG/ML 100 ML BTL IJ (15:15)
[2019-10-29] MEDS: Normal Saline - Diluent 50 ML VIAL IV (15:15)
[2019-10-29] MEDS: Normal Saline Flush 10 ML SYR IVP (15:16)
== END 2019-10-29 01:19 ==
PROVIDERS: PCP Family Medicine; Visit Provider Family Medicine
DX: E11.9 Type 2 diabetes mellitus without complications (principal); I10 Essential (primary) hypertension; R91.1 Solitary pulmonary nodule
CPT/HCPCS: 71260; 82565; 83036; J3490

== ENCOUNTER 2019-12-23 01:56 | Outpatient (CLI) | payer MEDICARE, BC, SELFPAY ==
--- NOTE | 2019-12-23 | DI.CT_ITS ---
EXAM: CT HEAD WO CLINICAL HISTORY: CA OF SCALP AND SKIN OF NECK,C44.42,EVAL FOR EROSIVE CHANGES,S/P SURGERY and ther apy TECHNIQUE: Imaging Protocol: Axial computed tomography images with coronal and sagittal reformatted images were created and reviewed COMPARISON: CT CT NECK SOFT TISSUE W CONTRAST (GENERIC) from 03/22/[address] CHEST W CONTRAST from 04/04/[address] HEAD WO from 09/03/2019 FINDINGS: Ventricles and Extra axial spaces: Normal in size and morphology for the patient's age. Hemorrhage: None. Cerebral parenchyma: Normal. Artifact related to aneurysm clip Midline shift: None. Brainstem/Cerebellum: Normal. Calvarium: There are stable lucencies in the skull, most numerous at the vertex. There is a small an terior lucency in the left frontal region, also unchanged. Visualized Paranasal sinuses/Mastoids: Clear. IMPRESSION: Stable areas of nonspecific lucency in the skull. The findings could represent venous lakes. The ar ea of lucency in the outer cortex of the left frontal bone is more suspicious for neoplastic erosion. RADIATION DOSE DELIVERED: 690.33mGy.cm Total DLP 690.33mGy.cm Total DLP DATA REPOSITORY: All CT scans at this facility are submitted to the National Radiology Data Registry (NRDR) Dose Index Registry (DIR) with the [employer] (ACR). RADIATION OPTIMIZATION: All CT scans at this facility use at least one of these dose optimization te chniques: automated exposure control; mA and/or kV adjustment per patient size (includes targeted exa ms where dose is matched to clinical indication); or iterative reconstruction.
== END 2019-12-23 02:16 ==
PROVIDERS: PCP Family Medicine; Visit Provider Preventive Medicine Undersea and Hyperbaric Medicine
DX: C44.42 Squamous cell carcinoma of skin of scalp and neck (principal)
CPT/HCPCS: 70450

== ENCOUNTER 2020-01-17 09:28 | Outpatient (CLI) | payer MEDICARE, BC, SELFPAY ==
[2020-01-17 12:59] LABS: HCT 37.8 % (36.0-46.0); HGB 11.7 g/dL (11.2-15.7); MCH 25.3 pg (27.0-33.0); MCV 81.6 fL (80-95); MPV 10.8 fL (8.0-11.0); Platelet Count 366 10^3/uL (130-400); RBC 4.63 10^6/uL (3.93-5.22); RDW 14.7 % (11.7-14.6); RDW-SD 43.2 fL; WBC 8.43 10^3/uL (4.4-10.8)
[2020-01-17 13:20] LABS: Iron 35 ug/dL (50-170)
[2020-01-17 13:33] LABS: Hemoglobin A1C 8.9 % (<5.7)
[2020-01-17 13:37] LABS: ALT 6 U/L (14-59); AST 5 U/L (15-37); Albumin 3.3 g/dL (3.4-5.0); Alkaline Phosphatase 65 U/L (46-116); Anion Gap 8.2 mmol/L (3-11); BUN 12 mg/dL (7-18); Bilirubin, Total 0.3 mg/dL (0.2-1.0); CO2 27.8 mmol/L (21.0-32.0); CREATININE 0.75 mg/dL (0.55-1.02); Calcium 9.3 mg/dL (8.5-10.1); Calculated LDL 81 mg/dL (<100); Chloride 101 mmol/L (98-107); Cholesterol 145 mg/dL (<200); Ferritin 47 ng/mL (8-252); Glucose 235 mg/dL (74-106); HDL Cholesterol 37 mg/dL (40-60); Potassium 4.6 mmol/L (3.5-5.1); Sodium 137 mmol/L (136-145); Total Protein 7.8 g/dL (6.4-8.2); Triglyceride 139 mg/dL (<150)
== END 2020-01-17 09:48 ==
PROVIDERS: PCP Family Medicine; Visit Provider Family Medicine
DX: I27.20 Pulmonary hypertension, unspecified (principal); D64.9 Anemia, unspecified; E11.9 Type 2 diabetes mellitus without complications
CPT/HCPCS: 36415; 80053; 80061; 85027; 82728; 83036; 83540

== ENCOUNTER 2020-02-19 10:00 | Outpatient (RCR) | payer MEDICARE, BC, SELFPAY ==
[2020-01-29] MEDS: SODIUM FER. GLUC./SUC. 125 MG in Normal Saline 100 ML 110 MG IVPB (09:56)
[2020-01-29] MEDS: Normal Saline Flush 10 ML SYR IVP (09:57)
[2020-02-05] MEDS: Normal Saline Flush 10 ML SYR IVP (09:54)
[2020-02-05] MEDS: SODIUM FER. GLUC./SUC. 125 MG in Normal Saline 100 ML 110 MG IVPB (09:54)
[2020-02-12] MEDS: Normal Saline Flush 10 ML SYR IVP (10:28)
[2020-02-12] MEDS: SODIUM FER. GLUC./SUC. 125 MG in Normal Saline 100 ML 110 MG IVPB (10:28)
[2020-02-19] MEDS: SODIUM FER. GLUC./SUC. 125 MG in Normal Saline 100 ML 110 MG IVPB (10:21)
[2020-02-19] MEDS: Normal Saline Flush 10 ML SYR IVP (10:21)
[2020-02-19 11:40] LABS: Abs Immature Grans 0.12 10^3/uL (0.0-0.06); Absolute Basophil Count 0.03 10^3/uL (0.0-0.2); Absolute Eosinophil Count 0.12 10^3/uL (0.0-0.7); Absolute Monocyte Count 0.82 10^3/uL (0.1-0.8); Absolute Neutrophil Count 5.63 10^3/uL (1.2-6.7); Basophils % 0.4; Eosinophils % 1.4; HCT 37.1 % (36.0-46.0); HGB 11.5 g/dL (11.2-15.7); Immature Grans % 1.4; Lymphocytes % 19.2; MCH 25.8 pg (27.0-33.0); MCV 83.2 fL (80-95); MPV 10.6 fL (8.0-11.0); Monocytes % 9.9; Neutrophils % 67.7; Nucleated RBC 0 %; Platelet Count 319 10^3/uL (130-400); RBC 4.46 10^6/uL (3.93-5.22); RDW 15.3 % (11.7-14.6); RDW-SD 46.5 fL; WBC 8.32 10^3/uL (4.4-10.8)
[2020-02-19 12:07] LABS: Ferritin 157 ng/mL (8-252)
== END 2020-02-24 23:59 | disposition home or self-care (01) ==
LOC: INF 10:00
PROVIDERS: PCP Family Medicine; Visit Provider Family Medicine
DX: D64.9 Anemia, unspecified (principal); G25.81 Restless legs syndrome
CPT/HCPCS: 36415; 96365; 82728; 83540; 85025; J3490

== ENCOUNTER 2020-04-16 04:42 | Outpatient (CLI) | payer MEDICARE, BC, SELFPAY ==
[2020-04-16 13:39] LABS: Hemoglobin A1C 8.7 % (<5.7)
[2020-04-16 13:51] LABS: COMMENT (LAB VIEW ONLY) 54.21 mg/dL; Microalb ug/mg Crea 22.5 ug/mg Cr
== END 2020-04-16 05:02 ==
PROVIDERS: PCP Family Medicine; Visit Provider Family Medicine
DX: E11.9 Type 2 diabetes mellitus without complications (principal)
CPT/HCPCS: 36415; 82043; 82570; 83036; 84443

== ENCOUNTER 2020-04-27 07:14 | Outpatient (CLI) | payer MEDICARE, BC, SELFPAY ==
[2020-04-29 12:53] LABS: HGB 12.6 g/dL (11.2-15.7); MCH 26.3 pg (27.0-33.0); MCHC 31.5 % (32.0-36.0); MCV 83.3 fL (80-95); MPV 10.6 fL (8.0-11.0); Platelet Count 366 10^3/uL (130-400); RDW 14.4 % (11.7-14.6); RDW-SD 43.8 fL; WBC 10.17 10^3/uL (4.4-10.8)
[2020-04-29 13:06] LABS: Iron 47 ug/dL (50-170)
[2020-04-29 13:20] LABS: Ferritin 147 ng/mL (8-252)
== END 2020-04-27 07:34 ==
PROVIDERS: PCP Family Medicine; Visit Provider Family Medicine
DX: D64.9 Anemia, unspecified (principal); E11.9 Type 2 diabetes mellitus without complications
CPT/HCPCS: 36415; 85027; 82728; 83540

== ENCOUNTER 2020-04-29 02:34 | Outpatient (CLI) | payer MEDICARE, BC, SELFPAY ==
--- NOTE | 2020-04-29 | DI.CT_ITS ---
EXAM: CT CHEST WO CLINICAL HISTORY: F/U ABNL FINDINGS,R93.89. TECHNIQUE: Imaging protocol: Axial computed tomography images were obtained and coronal and sagittal reformatted images were created and reviewed. COMPARISON: CT CT CHEST W CONTRAST from 04/04/[address] CHEST W from 10/29/2019 FINDINGS: Tracheobronchial tree: Patent where visualized. Pulmonary parenchyma: The 7 x 4 mm irregular nodule in the left upper lobe is stable. There are 2 st able ground-glass nodules noted. One in the left upper lobe measuring 0.4 cm. (Series 4, image 79). There is a nodule in the superior aspect of the left lower lobe which also measures 0.4 cm. (Serie s 4, image 137). No new pulmonary nodules are present. These nodules were present on the CT scan of the chest from [facility] dated 04/04/2019. There is a calcified granuloma in the right lo wer lobe. No architectural distortion. Mediastinum and Agatha: No dominant adenopathy or fluid collection. Pleura: No effusion or pneumothorax. Heart: The heart is not dilated. Moderate coronary artery calcification. There is aortic and mitral valve calcification again noted. No pericardial effusion. Aorta: Thoracic aorta non-dilated. Moderate atherosclerosis. Upper abdomen: There is a calcifications seen in the kidney which may represent a nonobstructing sto ne. Lymph nodes: Within normal limits. Soft tissues: Unremarkable. Bones:No acute abnormality. IMPRESSION: Stable pulmonary nodules. Follow-up examination is recommended in 6-12 months. RADIATION DOSE DELIVERED: 463.51mGy.cm Total DLP 463.51mGy.cm Total DLP DATA REPOSITORY: All CT scans at this facility are submitted to the National Radiology Data Registry (NRDR) Dose Index Registry (DIR) with the [employer] (ACR). RADIATION OPTIMIZATION: All CT scans at this facility use at least one of these dose optimization te chniques: automated exposure control; mA and/or kV adjustment per patient size (includes targeted exa ms where dose is matched to clinical indication); or iterative reconstruction.
== END 2020-04-29 02:35 | disposition home or self-care (01) ==
LOC: DI 02:34
PROVIDERS: PCP Family Medicine; Visit Provider Internal Medicine
DX: R91.8 Other nonspecific abnormal finding of lung field (principal)
CPT/HCPCS: 71250

== ENCOUNTER 2020-07-17 01:15 | Outpatient (CLI) | payer MEDICARE, BC, SELFPAY ==
[2020-07-17 12:23] LABS: HCT 38.6 % (36.0-46.0); HGB 11.8 g/dL (11.2-15.7); MCH 26.2 pg (27.0-33.0); MCHC 30.6 % (32.0-36.0); MCV 85.6 fL (80-95); MPV 10.6 fL (8.0-11.0); Platelet Count 358 10^3/uL (130-400); RBC 4.51 10^6/uL (3.93-5.22); RDW 14.4 % (11.7-14.6); RDW-SD 44.8 fL; WBC 8.76 10^3/uL (4.4-10.8)
[2020-07-17 12:34] LABS: Hemoglobin A1C 8.1 % (<5.7)
[2020-07-17 12:36] LABS: Iron 39 ug/dL (50-170)
[2020-07-17 12:48] LABS: ALT 10 U/L (14-59); AST 5 U/L (15-37); Albumin 3.3 g/dL (3.4-5.0); Alkaline Phosphatase 64 U/L (46-116); Anion Gap 8.6 mmol/L (3-11); BUN 21 mg/dL (7-18); Bilirubin, Total 0.3 mg/dL (0.2-1.0); CO2 27.4 mmol/L (21.0-32.0); CREATININE 0.7 mg/dL (0.55-1.02); Calcium 9.2 mg/dL (8.5-10.1); Chloride 104 mmol/L (98-107); Ferritin 120 ng/mL (8-252); Glucose 238 mg/dL (74-106); Potassium 4.7 mmol/L (3.5-5.1); Sodium 140 mmol/L (136-145); Total Protein 7.6 g/dL (6.4-8.2)
== END 2020-07-17 01:16 | disposition home or self-care (01) ==
LOC: LOS 01:15
PROVIDERS: PCP Family Medicine; Visit Provider Family Medicine
DX: D64.9 Anemia, unspecified (principal); E11.9 Type 2 diabetes mellitus without complications; I10 Essential (primary) hypertension; I27.20 Pulmonary hypertension, unspecified
CPT/HCPCS: 36415; 80053; 85027; 82728; 83036; 83540

== ENCOUNTER 2020-07-30 02:27 | Outpatient (CLI) | payer MEDICARE, BC, SELFPAY ==
--- NOTE | 2020-07-30 | DI.CT_ITS ---
Exam(s) CT NECK W EXAM: CT NECK W CLINICAL HISTORY: SQUAMOUS CELL CA SCALP AND SKIN OF NECK,C44.42,? RECURRENCE OR BONE INVOLVE TECHNIQUE: COMPARISON: CT CT HEAD WO from 12/23/[address] CHEST WO from 04/29/2020 FINDINGS: CT examination cervical region was performed with intravenous infusion of 100 cc of Omnipaque 350. I mages obtained through the lung apices show previously noted irregular 7 x 4 millimeter in diameter l eft upper lobe pulmonary nodule, unchanged from prior scan April 29. The tracheolaryngeal structures appear intact. There is no cervical mass or adenopathy. The salivar y glands are unremarkable in appearance. Thyroid is unremarkable. No significant vascular abnormali ty seen. IMPRESSION: Stable left upper lobe pulmonary nodule. Otherwise negative CT examination of the cervical region. RADIATION DOSE DELIVERED: Total DLP RADIATION OPTIMIZATION: All CT scans at this facility use at least one of these dose optimization te chniques: automated exposure control; mA and/or kV adjustment per patient size (includes targeted exa ms where dose is matched to clinical indication); or iterative reconstruction.
--- NOTE | 2020-07-30 | DI.CT_ITS ---
Exam(s) CT HEAD WO/W EXAM: CT HEAD WO/W CLINICAL HISTORY: SQUAMOUS CELL CA SCALP,SKIN OF NECK,C44.42/SP SURGERY/RX,? RECURRENCE OR VERONICA TECHNIQUE: COMPARISON: CT CT HEAD WO from 12/23/2019 FINDINGS: CT examination of the head was performed prior to and following intravenous infusion 100 cc of Omnipa que 350 and was performed in conjunction with CT examination of the cervical region. There are apparent metallic aneurysm clips in place corresponding to location of the anterior communi cating artery. There is no mass lesion or enhancing lesion intracranially. Venous structures appear intact and no other significant abnormality of the nvkgbo-rl-Ogkihx region vessels is seen. There i s moderate generalized cerebral atrophy. There is no evidence of acute hemorrhage, mass effect, or m idline shift. The orbital and temporal bone structures appear intact. A couple of tiny skull lucencies are present in the left frontal region as described on prior CT of S 2019. These are probably unchanged, metastatic tumor not entirely excluded, if clinically i ndicated additional evaluation with bone scan or MR may be considered to evaluate these bony findings . IMPRESSION: No evidence of acute intracranial process. RADIATION DOSE DELIVERED: Total DLP RADIATION OPTIMIZATION: All CT scans at this facility use at least one of these dose optimization te chniques: automated exposure control; mA and/or kV adjustment per patient size (includes targeted exa ms where dose is matched to clinical indication); or iterative reconstruction.
[2020-07-30 10:40] LABS: Estimated GFR 54.05 (mL/min/1.73m2)
[2020-07-30] MEDS: Omnipaque 350 MG/ML 100 ML BTL IJ (11:21)
[2020-07-30] MEDS: Normal Saline Flush 10 ML SYR IVP (11:21)
== END 2020-07-30 02:47 ==
PROVIDERS: PCP Family Medicine; Visit Provider Preventive Medicine Undersea and Hyperbaric Medicine
DX: C44.42 Squamous cell carcinoma of skin of scalp and neck (principal); R91.1 Solitary pulmonary nodule; G31.89 Other specified degenerative diseases of nervous system
CPT/HCPCS: 70491; 96365; 70470; 82565; J2916; J3490

== ENCOUNTER → 2020-08-03 11:05 | Outpatient (BNVA) | payer MEDICARE, BC, SELFPAY | PROVIDERS: PCP Family Medicine; Referring Provider Family Medicine; Visit Provider Surgery | DX: D64.9 Anemia, unspecified (principal); C44.92 Squamous cell carcinoma of skin, unspecified; I10 Essential (primary) hypertension; E11.9 Type 2 diabetes mellitus without complications | CPT/HCPCS: 99214; 99243 ==

== ENCOUNTER 2020-08-12 02:05 | Outpatient (CLI) | payer MEDICARE, BC, SELFPAY ==
[2020-08-12 10:27] LABS: Source Nasal/Nares
[2020-08-12 12:58] LABS: COVID-19 PCR Negative (Negative)
== END 2020-08-12 02:06 | disposition home or self-care (01) ==
LOC: LBO 02:05
PROVIDERS: PCP Family Medicine; Visit Provider Surgery
DX: Z20.822 Contact with and (suspected) exposure to COVID-19 (principal); Z01.818 Encounter for other preprocedural examination
CPT/HCPCS: 87635

== ENCOUNTER 2020-08-14 06:17 | Day surgery (SDC) | payer MEDICARE, BC, SELFPAY ==
[2020-08-14] VITALS (7 sets, daily range): BP systolic 102–142; BP diastolic 44–71; PULSE 67–76; RESP 18–21; TEMP 36.3–36.6; O2SAT 95–98; BMI 22.8
[2020-08-14] MEDS: Lactated Ringers 1,000 ML 80 ML IV (06:57)
--- NOTE | 2020-08-14 07:10 | ANES.PREOP_ITS ---
General Info Date of Service Date Performed: 08/14/20 Height: 5 ft 2 in Weight: 56.8 kg Body Mass Index (BMI): 22.8 Surgical Procedure: Operation Date: 08/14/20 07:35 Proposed Procedures Side Surgeon p Colonoscopy/Gastroscopy Tiesha Chao, Meds Allergies and Home Medications Allergies Allergy/AdvReac Type Severity Reaction Status Date / Time atropine Allergy Intermediate RASH Verified 08/14/20 06:41 clams Allergy Intermediate Violent Verified 08/14/20 06:41 diarrhea diphenoxylate Allergy Intermediate SKIN RASH Verified 08/14/20 06:41 propoxyphene Allergy Intermediate SENSITIVITY Verified 08/14/20 06:41 Home Medication Medication Instructions Recorded calcium carbonate-vitamin D3 1 ea PO BID 08/22/12 [Os-Reji 500 + D3] glucosam-chond vs-nfyzct-gy ac 1 ea PO BID 08/22/12 ascorbic acid (vitamin C) [Vitamin 1 tab PO DAILY 08/23/12 C] blood-glucose meter #1 ea 07/30/13 inulin-chromium picolinate [Fiber 1 ea PO DAILY tab.chew 11/24/16 Gummies] aspirin 81 mg tablet,delayed 81 mg PO DAILY tab-cap 10/30/18 release mupirocin 2 % topical ointment 1 applic TP BID #30 gm 07/29/19 blood sugar diagnostic #100 strip 10/17/19 lancets 28 gauge #100 ea 10/17/19 ferrous sulfate 325 mg (65 mg 650 mg PO DAILY tab 01/20/20 iron) tablet empagliflozin 25 mg tablet 25 mg PO QAM #90 tab 02/06/20 glipizide 10 mg tablet, extended 10 mg PO BID #180 tab-cap 05/01/20 release 24 hr metformin 1,000 mg tablet See Rx Instructions PO BID #270 05/01/20 tab-cap pravastatin 20 mg tablet 20 mg PO DAILY #90 tab-cap 05/01/20 calcipotriene 0.005 % topical 1 applic TOPICAL BID 07/20/20 ointment cyanocobalamin (vitamin B-12) 1,000 mcg PO DAILY 08/03/20 1,000 mcg capsule bisacodyl 5 mg tablet,delayed 5 mg PO ONCE #4 tab 08/05/20 release polyethylene glycol 3350 17 238 g PO ONCE #238 g 08/05/20 gram/dose oral powder lisinopril 5 mg PO HS 08/12/20 sertraline [Zoloft] 50 mg PO HS 08/12/20 Current Visit Medications: Current Medications Generic Name Dose Route Start Last Admin Trade Name Lukeq PRN Reason Stop Dose Admin Hyoscyamine Sulfate 0.125 mg 08/13/20 23:47 Hyoscyamine 0.125 Mg Sl/Oral/Chew SL DIRECTED PRN Ringer's Solution 1,000 mls @ 80 mls/hr 08/14/20 06:00 08/14/20 06:57 IV 09/12/20 23:59 80 mls/hr INFUSION DARBY Administration IV Miscellaneous Supplies 1 each 08/14/20 06:00 Iv Access IV 09/12/20 23:59 DIRECTED DARBY Ondansetron HCl 4 mg 08/13/20 23:47 Ondansetron 4 Mg/2 Ml Vial IVP Q4H PRN PRN Nausea / Vomiting Sodium Chloride 0 ml 08/14/20 06:00 Normal Saline Flush 10 Ml Syr IV 09/12/20 23:59 PRN PRN Sodium Chloride 0 ml 08/14/20 06:00 Normal Saline 10 Ml Vial IJ 09/12/20 23:59 DIRECTED PRN Sterile Water 0 ml 08/14/20 06:00 Water,Injection,Sterile 10 Ml Vial IJ 09/12/20 23:59 DIRECTED PRN PFSH Active Problems Active Problems: Problem Status Onset Code Acute meniscal tear, lateral 08/08/07 S83.289A Squamous cell skin cancer C44.92 Aortic valve calcification I35.9 Pulmonary hypertension I27.20 Incidental pulmonary nodule, > 3mm and < 8mm R91.1 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 UTI (urinary tract infection) N39.0 Anemia D64.9 Low iron stores R79.0 Sensory hearing loss, bilateral 01/13/14 H90.3 Right lumbar radiculopathy 05/26/14 M54.16 Right hip pain 11/24/16 M25.551 Heart murmur R01.1 Essential hypertension 02/22/13 I10 Diverticulosis of colon without diverticulitis 04/12/13 K57.30 Diabetes mellitus 07/30/13 E11.9 Depressive disorder F32.9 Medical History Medical History Acute meniscal tear of right knee 08/08/07 Seen by Eder Bee MD [facility], 07/23/07 Anemia (03/29/16) Anemia (03/29/16) Brain aneurysm repaired 05/2019 Chondromalacia (08/08/07) Chondromalacia, right knee 08/08/07 Seen by Eder Bee MD [facility], 07/23/07 Closed fracture of humerus 08/23/12 Closed fracture of humerus (08/23/12) Closed fracture of skull 02/23/91 Closed fracture of skull (02/23/91) Depressive disorder Diabetes mellitus (07/30/13) new DM 08/07 Diverticulosis of colon without diverticulitis (04/12/13) Essential hypertension Essential hypertension (02/22/13) Heart murmur systolic murmur, 1+ mitral regurge, 1+ tricuspid regurge Hemorrhoids (04/12/13) Plantar fasciitis Plantar fasciitis Right hip pain (11/24/16) Right lumbar radiculopathy (05/26/14) pseudospondylolistheis degenerative changes RLQ fullness (08/23/12) Sciatica Sciatica Seasonal allergic rhinitis Sensory hearing loss, bilateral (01/13/14) URI, acute (12/25/14) Surgical History Surgical History H/O shoulder surgery 05/26/11 History of shoulder surgery Hysterectomy, Laproscopic (~1985) HAS OVARIES , Ectopic 1972 & 1975 PROCEDURES RIGHT SHOULDER SURGERY 06/05 Skull fracture 1991 Replacement of total knee joint (~05/2009) B/L S/P laparoscopic hysterectomy 03/27/85 ovaries remain S/p total knee replacement, bilateral 03/27/09 Status post laparoscopic hysterectomy Status post Mohs surgery (~03/12/19) [facility] Status post total knee replacement Tobacco Smoking/Tobacco Use Status: Former Tobacco Use Tobacco: How many years used: 9 Alcohol Alcohol Intake: current Alcohol intake frequency: a few times a month Alcohol type: beer and wine Substance Use Substance use: Never Substance use type: does not use Vital Signs and Lab Results Vital Signs Most Recent Vital Signs in EMR: Most Recent Vital Signs Temp Pulse Resp BP Pulse Ox 36.4 C L 72 20 133/71 98 08/14/20 06:36 08/14/20 06:36 08/14/20 06:36 08/14/20 06:36 08/14/20 06:36 Point of Care Results Point of Care Results: Finger Stick Blood Glucose 131 08/14/20 06:54 Lab Results Blood Type / Crossmatch: No Data to Display Complete Blood Count: White Blood Count 8.76 10^3/uL (4.4-10.8) 07/17/20 09:44 07/17/20 Red Blood Count 4.51 10^6/uL (3.93-5.22) 07/17/20 09:44 07/17/20 Hemoglobin 11.8 g/dL (11.2-15.7) 07/17/20 09:44 07/17/20 Hematocrit 38.6 % (36.0-46.0) 07/17/20 09:44 07/17/20 Platelet Count 358 10^3/uL (130-400) 07/17/20 09:44 07/17/20 Complete Metabolic Panel: Sodium Level 140 mmol/L (136-145) 07/17/20 09:44 07/17/20 Potassium Level 4.7 mmol/L (3.5-5.1) 07/17/20 09:44 07/17/20 Chloride Level 104 mmol/L (98-107) 07/17/20 09:44 07/17/20 Carbon Dioxide Level 27.4 mmol/L (21.0-32.0) 07/17/20 09:44 07/17/20 Blood Urea Nitrogen 21 mg/dL (7-18) H 07/17/20 09:44 07/17/20 Creatinine 1.0 mg/dL (0.55-1.02) 07/30/20 10:26 07/30/20 Calcium Level 9.2 mg/dL (8.5-10.1) 07/17/20 09:44 07/17/20 Albumin 3.3 g/dL (3.4-5.0) L 07/17/20 09:44 07/17/20 Glucose Level 238 mg/dL (74-106) H 07/17/20 09:44 07/17/20 Hemoglobin A1c 8.1 % (<5.7) H 07/17/20 09:44 07/17/20 Liver Function Panel: Alanine Aminotransferase (ALT/SGPT) 10 U/L (14-59) L 07/17/20 09:44 07/17/20 Aspartate Amino Transf (AST/SGOT) 5 U/L (15-37) L 07/17/20 09:44 07/17/20 Coagulation Panel: No Data to Display Cardiac Panel: No Data to Display Arterial Blood Gas: No Data to Display Venous Blood Gas: No Data to Display Pancreas Panel: No Data to Display Thyroid Panel: No Data to Display Infectious Disease: Coronavirus (COVID-19)(PCR) Negative (Negative) 08/12/20 08:41 08/12/20 Coronavirus 2019 Source Nasal/nares 08/12/20 08:41 08/12/20 Blood Cultures: No Data to Display Toxicology Panel: No Data to Display Imaging and Studies Imaging and Studies Stress Test Summary: 05/2019: MPI Conclusion No significant myocardial ischemia or evidence of prior infarction Echocardiogram Summary: 10/2018: Summary: 1. Left ventricle: The cavity size was normal. Wall thickness was increased in a pattern of mild LVH. There was severe focal basal hypertrophy of the septum. Systolic function was vigorous. The estimated ejection fraction was 65-70%. There was no dynamic obstruction. Wall motion was normal; there were no regional wall motion abnormalities. 2. Aortic valve: Noncoronary cusp mobility was severely restricted. There was mild to moderate stenosis. Peak velocity (S): 2.9m/sec. Mean gradient (S): 20.6mm Hg. Valve area (VTI): 1.3cm^2. 3. Mitral valve: Moderately calcified annulus. 4. Left atrium: The atrium was mildly dilated. 5. Right ventricle: The cavity size was normal. Wall thickness was normal. Systolic function was normal. 6. Pulmonary arteries: Pulmonary systolic pressure was increased, in the range of 35mm Hg to 40mm Hg. Anesthesia Assessment and Plan Anesthesia History Personal History: No History of Anesthesia Complications Family History: No Family History of Anesthesia Complications Exercise Tolerance Exercise Tolerance: Metabolic Equivalents>4 Pertinent Negatives Pertinent Negatives: No Symptoms of GERD Cardiac & Pulmonary Exam Cardiac Exam: Heart Murmur Present Pulmonary Exam: Clear Bilateral Breath Sounds Airway Exam Known Difficult Airway: No Mallampati Class: 2 Mouth Opening: Normal (> 3cm) Thyromental Distance: Greater than 3 cm Neck Range of Motion: Full ROM Neck Circumference: Normal Teeth Condition: Normal Dentition ASA Classification ASA Score: ASA 3 Emergency Case?: No NPO Status NPO Status: NPO Clears >2 hours, Solids >8 hours Anesthesia Plan Resuscitation Status: Full Code Anesthesia Technique: General Anesthesia Airway Planned: Natural Airway Monitors Used: Standard Monitors
--- NOTE | 2020-08-14 07:27 | W.PM.HP.N ---
Date of service: 08/14/20 Time of Service: 07:27 [facility] Medical History Acute meniscal tear of right knee 08/08/07 Seen by Eder Bee MD [facility], 07/23/07 Anemia (03/29/16) Anemia (03/29/16) Brain aneurysm repaired 05/2019 Chondromalacia (08/08/07) Chondromalacia, right knee 08/08/07 Seen by Eder Bee MD [facility], 07/23/07 Closed fracture of humerus 08/23/12 Closed fracture of humerus (08/23/12) Closed fracture of skull 02/23/91 Closed fracture of skull (02/23/91) Depressive disorder Diabetes mellitus (07/30/13) new DM 08/07 Diverticulosis of colon without diverticulitis (04/12/13) Essential hypertension Essential hypertension (02/22/13) Heart murmur systolic murmur, 1+ mitral regurge, 1+ tricuspid regurge Hemorrhoids (04/12/13) Plantar fasciitis Plantar fasciitis Right hip pain (11/24/16) Right lumbar radiculopathy (05/26/14) pseudospondylolistheis degenerative changes RLQ fullness (08/23/12) Sciatica Sciatica Seasonal allergic rhinitis Sensory hearing loss, bilateral (01/13/14) URI, acute (12/25/14) Surgical History H/O shoulder surgery 05/26/11 History of shoulder surgery Hysterectomy, Laproscopic (~1985) HAS OVARIES , Ectopic 1972 & 1975 PROCEDURES RIGHT SHOULDER SURGERY 06/05 Skull fracture 1991 Replacement of total knee joint (~05/2009) B/L S/P laparoscopic hysterectomy 03/27/85 ovaries remain S/p total knee replacement, bilateral 03/27/09 Status post laparoscopic hysterectomy Status post Mohs surgery (~03/12/19) [facility] Status post total knee replacement Family History Mother , OLD AGE at age 89. Alcohol abuse Asthma Father , MRSA at age 89. Personal history of malignant neoplasm PROSTATE/LYMPHOMA MRSA infection Sister Diabetes Essential hypertension Depression Heart disease Hyperlipidemia Brother Substance abuse Alcohol abuse Personal history of malignant neoplasm SQUAMOUS CARCINOMA Asthma Brother Personal history of malignant neoplasm PROSTATE Grandfather No problems noted. Grandfather No problems noted. Grandmother Personal history of malignant neoplasm Grandmother , CAR ACCIDENT at age 50. No problems noted. FAMILY HISTORY Glaucoma Daughter No problems noted. Daughter No problems noted. Social History (Updated 10/18/19 @ 15:52 by Dayana Holly) Smoking/Tobacco Use Status: Former Tobacco Use Quit Date: 03/27/73 Tobacco: How many years used: 9 Smoking risk assessment performed?: Yes Alcohol Intake: current Alcohol Intake frequency: a few times a month Alcohol type: beer and wine Drug use: Never Substance use type: does not use Caregiver/Support person: No Housing: house Communication Needs: Hard of Hearing Do you need help understanding health information?: Never Pets and animals: Yes Pets and animals: cat(s) Sexually active: No Do you think of yourself as: straight/heterosexual Current gender identity: female What is your relationship status?: How often do you talk on the phone with friends or family?: three or more times per week How often do you get together with friends or relatives?: twice per week How often do you attend mosque or jewish services?: decline to answer Panel score (0-1 are the most socially isolated patients): 1 What type of physical activity do you participate in: walking Duration: 30-45 minutes/day Frequency: 5-6 times per week Special caitlin needs: No Do you feel safe at home: Yes Additional Social history: lives alone Meds Allergies and Home Medications Allergies Allergy/AdvReac Type Severity Reaction Status Date / Time atropine Allergy Intermediate RASH Verified 08/14/20 06:41 clams Allergy Intermediate Violent Verified 08/14/20 06:41 diarrhea diphenoxylate Allergy Intermediate SKIN RASH Verified 08/14/20 06:41 propoxyphene Allergy Intermediate SENSITIVITY Verified 08/14/20 06:41 Home Medications Medication Instructions Recorded Confirmed Type calcium carbonate-vitamin D3 1 ea PO BID 08/22/12 08/14/20 History [Os-Reji 500 + D3] glucosam-chond kc-kgginp-ix ac 1 ea PO BID 08/22/12 08/14/20 History ascorbic acid (vitamin C) [Vitamin 1 tab PO DAILY 08/23/12 08/14/20 History C] blood-glucose meter #1 ea 07/30/13 08/12/20 History inulin-chromium picolinate [Fiber 1 ea PO DAILY tab.chew 11/24/16 08/14/20 History Gummies] aspirin 81 mg tablet,delayed 81 mg PO DAILY tab-cap 10/30/18 08/14/20 History release mupirocin 2 % topical ointment 1 applic TP BID #30 gm 07/29/19 08/14/20 Rx blood sugar diagnostic #100 strip 10/17/19 08/12/20 Rx lancets 28 gauge #100 ea 10/17/19 08/12/20 Rx ferrous sulfate 325 mg (65 mg 650 mg PO DAILY tab 01/20/20 08/14/20 History iron) tablet empagliflozin 25 mg tablet 25 mg PO QAM #90 tab 02/06/20 08/14/20 Rx glipizide 10 mg tablet, extended 10 mg PO BID #180 tab-cap 05/01/20 08/14/20 Rx release 24 hr metformin 1,000 mg tablet See Rx Instructions PO BID #270 05/01/20 08/14/20 Rx tab-cap pravastatin 20 mg tablet 20 mg PO DAILY #90 tab-cap 05/01/20 08/14/20 Rx calcipotriene 0.005 % topical 1 applic TOPICAL BID 07/20/20 08/14/20 History ointment cyanocobalamin (vitamin B-12) 1,000 mcg PO DAILY 08/03/20 08/14/20 History 1,000 mcg capsule bisacodyl 5 mg tablet,delayed 5 mg PO ONCE #4 tab 08/05/20 08/14/20 Rx release polyethylene glycol 3350 17 238 g PO ONCE #238 g 08/05/20 08/14/20 Rx gram/dose oral powder lisinopril 5 mg PO HS 08/12/20 08/14/20 History sertraline [Zoloft] 50 mg PO HS 08/12/20 08/14/20 History Results Last Vital Signs Temp 36.4 C L 08/14/20 06:36 Pulse 72 08/14/20 06:36 Resp 20 08/14/20 06:36 BP 133/71 08/14/20 06:36 Pulse Ox 98 05/21/21 06:36 COVID-19 Screening Have you, or household traveled for leisure in last 14 days?: No
--- NOTE | 2020-08-14 08:00 | BOWEL_PTH ---
PATIENT: Linsey Kathleen LOC: [facility] U#:[id number] AGE/SX: 74/F ROOM: RE08/14/[address]: Tiesha Chao : 1945 BED: DIS: 08/14/2020 SPEC #: [id number] RECD: 08/14/20 09:14 STATUS: LUCIA RE #: [id number] MARU: 08/14/20 08:[address]: Tiesha Chao DEPT: Surgical Specimen RECD BY: Radha Lutz ENTERED: 08/14/20 09:21 SP TYPE: Bowel OTHR DR: Pat Pearson MD, DC Tissues: 1 - BIOPSY BOWEL 2 - BIOPSY BOWEL 3 - STOMACH BIOPSY 4 - ESOPHAGUS BIOPSY 5 - BIOPSY BOWEL Procedures: GROSS AND MICRO LEVEL 4 Comments: [id number]
--- NOTE | 2020-08-14 08:32 | W.COLOREPORT ---
Date of service: 08/14/20 Time of Service: 08:32 Colonoscopy Report Date of procedure: 08/14/20 Pre-op diagnosis general: anemia Post-op diagnosis procedure note: same (ulcers/diverticula/polyp) Anesthesia Type: MAC Estimated blood loss (mL): 1 Pathology: other Complications: None Disposition: PACU Prep: Miralax/Dulcolax Retraction Time: 8mins Procedure Description: After informed consent was obtained the patient was taken to the procedure room and placed in a left decubitous position. Monitors were applied and a time out was done. The patients name, date of , procedure, allergies to medications and metal in their body was reviewed. The patient was then sedated. Once sedated and comfortable a rectal exam was done. She does not have any external hemorrhoids. The anus is very patulous and has poor tone. There are no masses. The scope was then introduced and retrofelexed. no internal hemorrhoids were identified. The colon has very poor tone. The prep was good. The scope was then slowly retracted over 8 minutes back into the rectum. She has a small, 2 mm, flat polyp in the rectum that was removed with cold biting forcep. All specimen is retrieved and no bleeding is noted. She has moderate diverticular disease does confined to the sigmoid colon, with no signs of active bleeding or infection. The scope was removed and the patient was woken up and taken back to Same day surgery in stable condition. her rectal sigmoid area appears fixed and has poor movement. I am able to pass the scope to the hepatic flexure easily, it feels as if there is some type of restriction to movement that is coming more from the rectal area. She has had a GALLO and I am concerned about scarring down in the pelvis. I am confident that the reason for the anemia is coming from the stomach. The colon is been essentially unremarkable and is not the cause of the blood loss. The procedure at this point was terminated for patient safety/ to avoid perforation. The patient tolerated the procedure well and there were no immediate complications. Patient does not require any further colonoscopies
--- NOTE | 2020-08-14 08:47 | ENDO_ITS ---
Date of service: 08/14/20 Time of Service: 08:48 Endoscopy Report DATE OF PROCEDURE: 08/14/20 PRE-OP DIAGNOSIS: anemia POST-OP DIAGNOSIS: other (ulcers x 3) SURGEON: Tiesha Chao ANESTHESIA TYPE: Local By Surgeon ESTIMATED BLOOD LOSS: 0 PATHOLOGY: other COMPLICATIONS: None DISPOSITION: PACU PREP: Miralax/Dulcolax PROCEDURE DESCRIPTION: After informed consent was obtained the patient was take to the procedure room and placed in a supine position. Monitors were applied and a time out was done. The patients name, date of , procedure type, allergies to medications and metal in their body was reviewed. A bite block was placed and the patient was sedated. Once sedated and comfortable the gastroscope was advanced through the oropharynx which was grossly normal into the esophagus. The proximal and mid-esophagus were nl. In the distal esophagus there are no esophageal erosions/varices/diverticula/strictures apparent. The scope was advanced into the stomach and through the pylorus into the 3rd portion of the duodenum. The duodenum was noted to be atrophic. Biopsies were done, all specimens are members are retrieved and no bleeding is noted. The scope was retracted back into the stomach and biopsies were done to rule out H. pylori. On the posterior wall of the stomach/along the greater curvature- there is an area that is thickened/edematous/erthymatous and has multiple punctuate ulcerations. I did Bx this area. It is very friable and bleeds quite readily. A clip was placed across this area. It does not have the typical look of an ulcer. The scope was retroflexed. The cardia and fundus were noted to be no rmal. There is no hiatal hernia noted. The scope was retracted back into the esophagus and biopsies were done of the GE junction to rule out Rae's. The Z line was regular. The scope was removed and the patient was woken up and taken back to [facility] in stable condition. Follow up: 1 week for repeat labs. Stop ASA start ppi/carafate
[2020-08-14] MEDS: Normal Saline Flush 10 ML SYR IV (09:23)
[2020-08-14] MEDS: Normal Saline 1,000 ML 30 ML IV (09:23)
[2020-08-14] MEDS: Pantoprazole 40 MG VIAL IVP (09:23)
[2020-08-14] MEDS: IRON SUCROSE COMPLEX 200 MG in Normal Saline 100 ML 400 MG IVPB (09:39)
--- NOTE | 2020-08-14 09:39 | PDOC.DSDIS_ITS ---
Discharge Plan Disposition Patient Disposition: HOME Condition: Good Discharge Details Reason For Visit: stomach and colon scope Attending Provider: Tiesha Chao Primary Care Provider: Pat Pearson Home Meds and New Rx's Prescriptions: New pantoprazole [Protonix] 40 mg tablet,delayed release (DR/EC) 40 mg PO DAILY Qty: 30 RF: 12 sucralfate [Carafate] 1 gram tablet 1 g PO QACHS Qty: 120 RF: 12 Continued (DME) Blood Glucose Test Strip 1 ea Miscellaneous DAILY Qty: 100 RF: 5 (DME) lancets 28 gauge misc 1 ea Miscellaneous DAILY Qty: 100 RF: 5 calcipotriene 0.005 % ointment 1 applic topical BID RF: 0 cyanocobalamin (vitamin B-12) 1,000 mcg capsule 1,000 mcg PO DAILY RF: 0 glucosam-chond jh-batxyp-ee ac 1 EACH capsule 1 ea PO BID RF: 0 calcium carbonate-vitamin D3 [Os-Reji 500 + D3] 1 EACH tablet 1 ea PO BID RF: 0 (DME) blood-glucose meter 1 EACH misc 1 ea Miscellaneous ONCE Qty: 1 RF: 0 Fiber Gummies (with chromium) 1 EACH tablet,chewable 1 ea PO DAILY RF: 0 mupirocin 2 % ointment 1 applic TP BID Qty: 30 RF: 0 ferrous sulfate [Iron (ferrous sulfate)] 325 mg (65 mg iron) tablet 650 mg PO DAILY RF: 0 Jardiance 25 mg tablet 25 mg PO QAM Qty: 90 RF: 5 pravastatin 20 mg tablet 20 mg PO DAILY Qty: 90 RF: 12 metformin 1,000 mg tablet See Rx Instructions PO BID Qty: 270 RF: 4 glipizide 10 mg tablet extended release 24hr 10 mg PO BID Qty: 180 RF: 5 sertraline [Zoloft] 100 mg tablet 50 mg PO HS RF: 0 lisinopril 5 mg tablet 5 mg PO HS RF: 0 Discontinued polyethylene glycol 3350 17 gram/dose powder 238 g PO ONCE Qty: 238 RF: 0 bisacodyl [Dulcolax (bisacodyl)] 5 mg tablet,delayed release (DR/EC) 5 mg PO ONCE Qty: 4 RF: 0 ascorbic acid (vitamin C) [Vitamin C] 500 MG tablet 1 tab PO DAILY RF: 0 aspirin [Ecotrin Low Strength] 81 mg tablet,delayed release (DR/EC) 81 mg PO DAILY RF: 0 Discharge Instructions Additional Instructions: DSU Colonoscopy Post- Op Instructions Instructions for Everyone who is given Anesthesia: For your safety, please do the following for the next twenty-four (24) hours: *Do Not operate a motor vehicle (car, truck, motorcycle, etc.) *Do Not drink alcoholic beverages or use any recreational drugs for the first 24 hours or while taking pain medications. The medications in your body may have a reaction that can be dangerous. *Do Not make any important decisions or sign any important papers. Findings: x3 ulcers in stomach (bleeding) diverticula of colon small polyp -stop taking asiprin and Vit C. -Protonix daily -Carafate at least twice a day (four is optimal). You can dissolve the pill in 4 oz of water and drink as a solution. -Stop using asiprin/NSAID's/alcohol. Continue with lifestyle modifications: no alcohol, tobacco products, Aspirin or NSAID's (ibuprofen, Motrin, Naprosyn, aleve, etc). Try to limit: soda pop/any carbonated beverages, caffeine (including tea & chocolate), and acidic foods, (tomatoes, citrus, onions, peppermints) spicy foods. Do not lie down for 30 minutes after eating, and do not eat 2 hours prior to bedtime. Avoid wearing tight fitting clothing/ belts Follow up: 2 wks w/ Dr. Chao in clinic. Labs prior to appointment. 1. No lifting over 20 pounds or strenuous activity for the first 24 hours after your procedure. After 24 hours there are no restrictions on your activity but you may feel fatigued for a few days. 2. After you arrive home you may have a light meal and return to your normal diet as you can tolerate it without feeling sick to your stomach. 3. You may have a bloated, gaseous feeling in your belly (abdomen) after a colonoscopy. Passing gas and belching will help. Walking or lying down on your left side with your knees flexed may relieve the discomfort. Call the office at [phone] (Office) or [phone] (Hospital) right away if you notice any of the following: a.Vomiting of blood or ?coffee ground stools?. b.Rectal bleeding 1Tbsp, blood clots or continuous bleeding. c.Severe belly (abdominal) pain. d.A hard distended belly (abdomen) and an inability to pass gas. 4. Please don?t expect to have a normal BM (bowel movement) for 2-3 days after your procedure. 5. If there are questions regarding the findings of your procedure, please contact your doctor 6. If you are unable to contact your doctor with a problem, contact the hospital at [phone]. 7. Continue all your regular medications unless directed otherwise. I understand the above instructions and have no questions. Signature of Patient or Adult Escort Name of Responsible Adult Escort Signature of Nurse Date/Time Activity:: see above Diet:: see above Discharge Orders Discharge Orders: Discharge Order (Routine); Ordered 08/13/20 Ordered By: Tiesha Chao DS: Diagnosis Discharge Diagnosis (1) Gastric ulcer: Status: Acute (2) Diverticula of colon: Status: Acute (3) Adenomatous colon polyp: Status: Acute
--- NOTE | 2020-08-14 10:33 | W.ANESPOSTOP ---
Postoperative Evaluation Date, Time and Location Date Performed: 08/14/20 Time Performed: 10:33 Patient Location: Day Surgery Unit Vital Signs Most Recent Imported Vital Signs: Most Recent Vital Signs Temp Pulse Resp BP Pulse Ox 36.6 C 72 18 102/59 L 95 08/14/20 09:49 08/14/20 09:49 08/14/20 09:49 08/14/20 09:49 08/14/20 09:49 Pain Score Most Recent Pain Score: Most Recent Pain Score Pain Level 0 08/14/20 09:49 Assessment Mental Status: Awake (Alert & Oriented to Patient Baseline) Airway and Respiratory Function: Patent airway with normal (patient baseline) respiratory exam Cardiovascular Function: Hemodynamically Stable Hydration Status: Adequately Hydrated Nausea & Vomiting: No Nausea or Vomiting Pain: Pt. Denies Any Pain Peripheral Nerve Block: Patient did not receive a nerve block
== END 2020-08-14 10:43 | disposition home or self-care (01) ==
PROVIDERS: PCP Family Medicine; Visit Provider Surgery
PROC: (CPT 45380; principal; 2020-08-14 07:30)
DX: K25.4 Chronic or unspecified gastric ulcer with hemorrhage (principal); K29.80 Duodenitis without bleeding; I10 Essential (primary) hypertension; E11.9 Type 2 diabetes mellitus without complications; K62.1 Rectal polyp; K57.30 Diverticulosis of large intestine without perforation or abscess without bleeding; D50.0 Iron deficiency anemia secondary to blood loss (chronic)
CPT/HCPCS: 45380; 43239; 88305; 96365; J0360; J1756; J2001

== ENCOUNTER 2020-08-20 02:07 | Outpatient (RCR) | payer MEDICARE, BC, SELFPAY ==
[2020-07-30] MEDS: Normal Saline Flush 10 ML SYR IVP (11:26)
[2020-07-30] MEDS: SODIUM FER. GLUC./SUC. 125 MG in Normal Saline 100 ML 110 MG IVPB (11:54)
[2020-08-20] MEDS: Normal Saline Flush 10 ML SYR IVP (13:14)
[2020-08-20] MEDS: SODIUM FER. GLUC./SUC. 125 MG in Normal Saline 100 ML 110 MG IVPB (14:21)
== END 2020-08-24 23:59 | disposition home or self-care (01) ==
LOC: INF 02:07
PROVIDERS: PCP Family Medicine; Visit Provider Family Medicine
DX: D50.9 Iron deficiency anemia, unspecified (principal)
CPT/HCPCS: 96365; J2916

== ENCOUNTER 2020-08-26 10:35 | Outpatient (CLI) | payer MEDICARE, BC, SELFPAY ==
[2020-08-26 13:17] LABS: HCT 39.8 % (36.0-46.0); HGB 12.4 g/dL (11.2-15.7); MCH 26.5 pg (27.0-33.0); MCHC 31.2 % (32.0-36.0); MPV 10.2 fL (8.0-11.0); Platelet Count 316 10^3/uL (130-400); RBC 4.68 10^6/uL (3.93-5.22); RDW 14.6 % (11.7-14.6); RDW-SD 45.4 fL
[2020-08-26 13:28] LABS: Hemoglobin A1C 8.3 % (<5.7)
[2020-08-26 13:40] LABS: Ferritin 245 ng/mL (8-252)
[2020-08-26 14:23] LABS: Iron 34 ug/dL (50-170); Total Iron Binding Capacity 256 ug/dL (250-450); Transferrin Sat 13 % (15-50)
== END 2020-08-26 10:36 | disposition home or self-care (01) ==
LOC: LBO 10:36
PROVIDERS: PCP Family Medicine; Visit Provider Surgery
DX: E11.9 Type 2 diabetes mellitus without complications (principal); D64.9 Anemia, unspecified; K25.9 Gastric ulcer, unspecified as acute or chronic, without hemorrhage or perforation; E61.1 Iron deficiency; F32.9 Major depressive disorder, single episode, unspecified
CPT/HCPCS: 36415; 85027; 82728; 83036; 83540; 83550

== ENCOUNTER → 2020-08-27 10:21 | Outpatient (BNVA) | payer MEDICARE, BC, SELFPAY | PROVIDERS: PCP Family Medicine; Referring Provider Family Medicine; Visit Provider Surgery | DX: D50.8 Other iron deficiency anemias (principal); K25.9 Gastric ulcer, unspecified as acute or chronic, without hemorrhage or perforation; R06.02 Shortness of breath; I35.9 Nonrheumatic aortic valve disorder, unspecified; I10 Essential (primary) hypertension; C44.92 Squamous cell carcinoma of skin, unspecified | CPT/HCPCS: 99213 ==

== ENCOUNTER 2020-09-02 01:31 | Outpatient (CLI) | payer MEDICARE, BC, SELFPAY ==
--- NOTE | 2020-09-02 13:10 | DI.US_ITS ---
APPROVED REPORT EXAM: Comprehensive 2D, Doppler, and color-flow Echocardiogram Patient Location: Out-Patient Vocational Nurse: Kay Clement RDCS (AE) Indications: SOB, VIERA, Aortic stenosis, Pulmonary HTN, Murmur Other Information Study Quality: Adequate Conclusion Left Ventricle : The left ventricle is normal size. The left ventricular systolic function is normal. The left ventricular ejection fraction is within the normal range. There is normal left ventricular wall thickness. There is normal LV segmental wall motion. The left ventricular diastolic function is normal. LVEF is 60%. Right Ventricle : The right ventricle is normal size. The right ventricular systolic function is norm al. The RVSP is 27.1mmHg. Atria : The left atrium size is normal. The right atrium size is normal. Aortic Valve : Aortic valve is calcified. Aortic valve is probably trileaflet. No aortic regurgitatio n is present. Mild aortic stenosis. Peak aortic valve gradient is 29.7mmHg. Highest mean aortic valve gradient is 17.2mmHg. Peak aortic valve gradient is 1.58mmHg. Mitral Valve : Moderate mitral annular calcification. Mild mitral regurgitation. No evidence of roya l valve stenosis. Great Vessels : The aortic root is normal in size. The ascending aorta is mildly dilated. Aortic arch is normal in caliber. IVC is normal in size and collapses >50% with inspiration. Wall motion Left Ventricle The left ventricle is normal size. The left ventricular systolic function is normal. The left ventric ular ejection fraction is within the normal range. There is normal left ventricular wall thickness. T here is normal LV segmental wall motion. The left ventricular diastolic function is normal. There is no ventricular septal defect visualized. LVEF is 60%. Right Ventricle The right ventricle is normal size. The right ventricular systolic function is normal. The RVSP is 27 .1mmHg. Atria The left atrium size is normal. The right atrium size is normal. The interatrial septum is intact wit h no evidence for an atrial septal defect. Aortic Valve Aortic valve is calcified. Aortic valve is probably trileaflet. Mild aortic stenosis. Peak aortic kalie ve gradient is 29.7mmHg. Highest mean aortic valve gradient is 17.2mmHg. Peak aortic valve gradient i s 1.58mmHg. No aortic regurgitation is present. Mitral Valve Moderate mitral annular calcification. No evidence of mitral valve stenosis. Mild mitral regurgitatio n. Tricuspid Valve The tricuspid valve is normal in structure. There is no tricuspid valve stenosis. Mild tricuspid regu rgitation. Pulmonic Valve The pulmonary valve is normal in structure. There is no pulmonic valvular stenosis. There is no pulmo sung valvular regurgitation. Great Vessels The aortic root is normal in size. The ascending aorta is mildly dilated. Aortic arch is normal in ca liber. IVC is normal in size and collapses >50% with inspiration. Pericardium There is no pericardial effusion. 2D Dimensions IVSD d PLAX 0.84 cm F: 0.6-1.0 LV Vol A2C d MOD 75.2 mL LVPW d PLAX 0.85 cm F: 0.6 - 1.0 LV Vol A4C d MOD 79.8 mL LVID d PLAX 4.32 cm F: 3.8 - 5.2 LA vol/ BSA A2C s A-L 25.0 mL/m2 LVDs 3.10 cm F: 2.2 - 3.5 LA vol/ BSA A4C s A-L 23.9 mL/m2 Ao Root d 2.62 cm F: 2.7 - 3.3 LA Vol/ BSA Biplane s A-L 25.2 mL/m2 RA Area A4C 12.18 cm2 LA Area A4C s MOD 14.68 cm2 RA Vol/ BSA A4C s A-L 18.8 mL/m2 LA Area A2C s MOD 14.57 cm2 Ao Asc Diam d 3.21 cm F: 2.3 - 3.1 LV EF A4C MOD 58.4 % LV EF Teichholz 54.8 % LV EF A2C MOD 60.8 % LVEF ([facility]) 59.27 % F: 54 - 74 LV EF Biplane MOD 59.3 % LV Volume 64.22 mL F: 46 - 106 SV 46.46 mL LV Volume Index 41.16 mL/m2 F: 29 - 61 SV Index 29.68 mL/m2 LV Vol Biplane MOD 78.4 mL FS 28.20 % M-Mode TAPSE 1.98 cm (M/F) >1.7 LV Diastology MV E' medial 0.070 (>0.07 m/s) E/A Ratio 0.6 LV E/e MED 10.20 (<14) MV E Vmax 0.71 (0.4-1.3 m/s) MV E' lateral 0.114 (>0.1 m/s) MV A Vmax 1.10 (0.4-1.3 m/s) LV E/e LAT 6.25 (<14) MV E/A Ratio 0.62 MV E/E' medial 10.23 MV E/E' lateral 6.27 Aortic Valve LVOT Area 3.00 cm2 AoV Area Vmax 1.58 cm2 LVOT Vmax 1.43 m/s AoV Area/ BSA (Vmax) 1.01 cm2/m2 LVOT Mean Kojo. 0.96 m/s AUTUMN Mean Kojo. 1.46 cm2 LVOT Peak Grad 8.2 mmHg AUTUMN Mean Kojo. Index 0.94 cm2/m2 LVOT Mean Grad 4.3 mmHg LVOT VTI 0.306 m LVOT Diam s 1.95 cm AoV Vmax 2.73 m/s Velocity Ratio 0.52 AoV Mean Kojo. 1.98 m/s AoV Peak Grad 29.7 mmHg LVOT SV 91.81 mL AoV Mean Grad 17.2 mmHg AoV VTI 0.564 m AoV Area VTI 1.63 cm2 AoV Area/ BSA (VTI) 1.04 cm/m2 Mitral Valve MV DT 355 (160-240 msec) MR Vmax 4.55 m/s MV PHT 103 msec MR VTI 1.054 m MV Area PHT 2.14 cm2 MR Peak Grad 82.7 mmHg MV VTI 0.356 m MR Mean Grad 56.8 mmHg MV VTI Annulus 0.377 m MV Area VTI 2.74 (4.0-6.0 cm2) Pulmonary Valve PV Vmax 1.13 (0.5-1.5 m/s) RVOT Peak Gr. 2.23 mmHg PV Peak Grad 5.1 mmHg RVOT Mean Gr. 1.10 mmHg PV Mean Grad 2.8 mmHg RVOT VTI 0.144 m PV VTI 0.233 m RVOT Vmax 0.75 m/s Tricuspid Valve TR Peak Grad 24.1 mmHg TR Vmax 2.46 m/s RA Pressure 3.00 mmHg RVSP (TR) 27.1 mmHg
== END 2020-09-02 01:51 ==
PROVIDERS: PCP Family Medicine; Visit Provider Surgery
DX: R06.02 Shortness of breath (principal); I08.0 Rheumatic disorders of both mitral and aortic valves; I77.810 Thoracic aortic ectasia; R06.09 Other forms of dyspnea; I27.20 Pulmonary hypertension, unspecified; R01.1 Cardiac murmur, unspecified
CPT/HCPCS: 93306

== ENCOUNTER 2020-09-03 02:35 | Outpatient (RCR) | payer MEDICARE, BC, SELFPAY ==
[2020-09-03] MEDS: Normal Saline Flush 10 ML SYR IVP (13:09)
[2020-09-03] MEDS: SODIUM FER. GLUC./SUC. 125 MG in Normal Saline 100 ML 110 MG IVPB (13:55)
== END 2020-09-23 23:59 | disposition home or self-care (01) ==
LOC: INF 02:35
PROVIDERS: PCP Family Medicine; Visit Provider Family Medicine
DX: D50.9 Iron deficiency anemia, unspecified (principal)
CPT/HCPCS: 96365; J2916

== ENCOUNTER 2020-10-22 03:32 | Outpatient (CLI) | payer MEDICARE, BC, SELFPAY ==
--- NOTE | 2020-10-22 09:17 | DI.MAMMO_ITS ---
Exam(s) MAMMO SCREENING EXAM: MAMMO SCREENING CLINICAL HISTORY: screening,Z12.39. TECHNIQUE: Bilateral full field digital CC and MLO mammographic images were obtained with 3D tomosyn thesis and utilizing computer aided detection (CAD). COMPARISON: Prior mammograms dating back to 2013, the most recent being May 2019. Left breast ultrasound performed 12/04/2018 was reviewed FINDINGS: There are no CAD designations Nodular densities in the left breast remain unchanged from 2013. Asymmetric density in the medial as pect of right breast is also unchanged from 2013 There are no new spiculated masses nor malignant appearing microcalcification groups. There is no significant architectural distortion nor skin thickening-retraction. IMPRESSION: Stable benign findings. No radiographic evidence of malignancy BI-RADS Category 2 - Benign Findings Breast Density - Category B - Scattered areas of fibroglandular density Breast density Category C or D implies that the patient has dense breast tissue. Dense breast tissue can make it harder to find cancer on a mammogram. Dense breast tissue is also associated with an incr eased risk of breast cancer. This information about the result of the mammogram report was provided to the patient to raise their awareness. Use this report when you speak with the patient about their risks for breast cancer, which includes their family history. At that time, you may recommend additional screening tests (Ultrasoun d or MRI) as these tests may add significant information. A negative radiographic report should not delay biopsy if a dominant or clinically suspicious mass is present. Up to ten percent of cancers are not identified on mammography. A negative report may reinforce clinical impression. Adenosis and dense breasts may obscure an underlying neoplasm. False positive reports average 6 to 10%. Patient will receive a letter notifying them of these results.
== END 2020-10-22 03:52 ==
PROVIDERS: PCP Family Medicine; Visit Provider Family Medicine
DX: Z12.31 Encounter for screening mammogram for malignant neoplasm of breast (principal); R92.8 Other abnormal and inconclusive findings on diagnostic imaging of breast
CPT/HCPCS: 77063; 77067

== ENCOUNTER 2020-11-13 04:04 | Outpatient (CLI) | payer MEDICARE, BC, SELFPAY ==
--- NOTE | 2020-11-13 08:30 | DI.CT_ITS ---
Exam(s) CT CHEST WO EXAM: CT CHEST WO CLINICAL HISTORY: skin cancer, f/u scan for stability of nodules,r91.8. TECHNIQUE: Imaging protocol: Axial computed tomography images were obtained and coronal and sagittal reformatted images were created and reviewed. COMPARISON: CT CT CHEST WO from 04/29/2020 FINDINGS: The examination is limited due to patient motion artifact. Tracheobronchial tree: Patent where visualized. Pulmonary parenchyma: The 7 mm left upper lobe nodule is stable. The ground-glass nodule in the supe rior segment of the left lower lobe is stable. The ground-glass nodule in the left upper lobe is unc hanged. Nonspecific bilateral basilar infiltrates are seen. This may represent atelectasis. No new pulmonary nodules are seen. Mediastinum and Agatha: No dominant adenopathy or fluid collection. Pleura: No effusion or pneumothorax. Heart: The heart is not dilated. Moderate coronary artery calcification. Mitral valve calcifications and aortic valve calcifications are seen. No pericardial effusion. Aorta: Thoracic aorta non-dilated. Atherosclerosis. Upper abdomen: Unremarkable. Lymph nodes: Within normal limits. Soft tissues: Unremarkable. Bones:Postsurgical changes are seen in the right humeral head. IMPRESSION: 1. Stable pulmonary nodules. No new pulmonary nodules. 2. Nonspecific basilar pulmonary infiltrates. This may represent atelectasis. RADIATION DOSE DELIVERED: 374.45mGy.cm Total DLP 374.45mGy.cm Total DLP DATA REPOSITORY: All CT scans at this facility are submitted to the National Radiology Data Registry (NRDR) Dose Index Registry (DIR) with the [employer] (ACR). RADIATION OPTIMIZATION: All CT scans at this facility use at least one of these dose optimization te chniques: automated exposure control; mA and/or kV adjustment per patient size (includes targeted exa ms where dose is matched to clinical indication); or iterative reconstruction.
== END 2020-11-13 04:24 ==
PROVIDERS: PCP Family Medicine; Visit Provider Student in an Organized Health Care Education/Training Program
DX: C44.509 Unspecified malignant neoplasm of skin of other part of trunk; R91.8 Other nonspecific abnormal finding of lung field
CPT/HCPCS: 71250

== ENCOUNTER 2020-12-14 15:38 | Outpatient (CLI) | payer MEDICARE, BC, SELFPAY ==
--- NOTE | 2020-12-14 09:00 | DI.RAD_ITS ---
Exam(s) XR KNEE LT 3V AP,LAT,BRANDIE EXAM: XR KNEE LT 3V AP,LAT,BRANDIE CLINICAL HISTORY: Lt knee pain, m256.562, s/p TKR. TECHNIQUE: 2D digital imaging was performed. COMPARISON: CR XR KNEE RT 3V AP,LAT,BRANDIE from 12/14/2020 FINDINGS: Satisfactory position alignment of the components of the prosthesis. No for fractures. No loosening . IMPRESSION: DATA REPOSITORY: RADIATION DOSE DELIVERED:
--- NOTE | 2020-12-14 09:00 | DI.RAD_ITS ---
Exam(s) XR KNEE RT 3V AP,LAT,BRANDIE EXAM: XR KNEE RT 3V AP,LAT,BRANDIE CLINICAL HISTORY: Rt knee pain, M25.561 s/p TKR. TECHNIQUE: 2D digital imaging was performed. COMPARISON: CR RIGHT KNEE 3 VIEWS from 03/25/2013 FINDINGS: There is stable position alignment of the components of the right knee prosthesis. No fracture or lo osening evident. When compared to 2013 there is now calcification noted within the femoral artery. IMPRESSION: DATA REPOSITORY: RADIATION DOSE DELIVERED:
== END 2020-12-14 15:58 ==
PROVIDERS: PCP Family Medicine; Visit Provider Family Medicine
DX: M25.561 Pain in right knee (principal); M25.562 Pain in left knee; Z96.653 Presence of artificial knee joint, bilateral
CPT/HCPCS: 73562

== ENCOUNTER 2021-01-04 09:41 | Outpatient (CLI) | payer MEDICARE, BC, SELFPAY ==
[2021-01-04 12:40] LABS: HCT 40.3 % (36.0-46.0); HGB 12.4 g/dL (11.2-15.7); MCHC 30.8 % (32.0-36.0); MCV 87.6 fL (80-95); MPV 10.5 fL (8.0-11.0); Platelet Count 359 10^3/uL (130-400); RDW 14.6 % (11.7-14.6); RDW-SD 46.5 fL; WBC 8.91 10^3/uL (4.4-10.8)
[2021-01-04 12:48] LABS: ESR 35 mm/hr (0-30)
[2021-01-04 14:54] LABS: C-Reactive Protein 2.26 mg/dL (0.0-0.3)
[2021-01-04 15:23] LABS: Ferritin 241 ng/mL (8-252)
[2021-01-04 15:50] LABS: Iron 83 ug/dL (50-170)
[2021-01-04 16:40] LABS: Hemoglobin A1C 8.6 % (<5.7)
== END 2021-01-04 09:42 | disposition home or self-care (01) ==
LOC: LOS 09:45
PROVIDERS: PCP Family Medicine; Visit Provider Family Medicine
DX: F32.9 Major depressive disorder, single episode, unspecified; E11.9 Type 2 diabetes mellitus without complications; D50.8 Other iron deficiency anemias; M25.561 Pain in right knee; M25.562 Pain in left knee
CPT/HCPCS: 36415; 85027; 85652; 82728; 83036; 83540; 86140

== ENCOUNTER 2021-04-02 14:57 | Outpatient (REF) | payer MEDICARE, BC, SELFPAY ==
[2021-04-04 12:32] LABS: COVID-19 RT-PCR UVMMC Result Negative (Negative)
== END 2021-04-02 14:58 | disposition home or self-care (01) ==
LOC: NCHCN 14:57
PROVIDERS: PCP Family Medicine; Visit Provider Family Medicine
DX: Z20.822 Contact with and (suspected) exposure to COVID-19 (principal)
CPT/HCPCS: U0003

== ENCOUNTER 2021-04-12 00:42 | Outpatient (CLI) | payer MEDICARE, BC, SELFPAY ==
--- NOTE | 2021-04-12 06:45 | DI.CT_ITS ---
Exam(s) CT CHEST WO EXAM: CT CHEST WO CLINICAL HISTORY: f/u pulmonary nodule stability, has skin cancer,r91.8 TECHNIQUE: Imaging Protocol: Axial computed tomography images with coronal and sagittal reformatted images were created and reviewed CONTRAST MATERIAL: Intravenous: Omnipaque 350 Contrast volume:structured data in ml. COMPARISON: CT CT NECK SOFT TISSUE W CONTRAST (GENERIC) from 03/22/[address] CHEST W CONTRAST from 04/04/[address] CHEST WO from 11/13/2020 FINDINGS: Tracheobronchial tree: No bronchiectasis or mucous plugging. Mediastinum and Agatha: No dominant adenopathy or fluid collection. Pulmonary parenchyma: No consolidation. Stable 7 millimeter maximal dimension left upper lobe nodule versus scarring stable since 2019. Stable small ground-glass nodules in left upper lobe and superio r segment left lower lobe. No new nodules in either lung. Pleura: No effusion or pneumothorax. Heart: The heart is not dilated. coronary artery calcifications are seen. The mitral valve is heavi ly calcified. Aorta: Thoracic aorta non-dilated. [id number]-ugowltnf atherosclerotic changes. Upper abdomen: Unremarkable. Mildly prominent spleen. Lymph nodes: Within normal limits. Bones: Hemangioma T7. Degenerative changes. Soft tissues: Unremarkable. IMPRESSION: Left pulmonary nodules stable since 2019. No new abnormalities. RADIATION DOSE DELIVERED: 389.53mGy.cm Total DLP DATA REPOSITORY: All CT scans at this facility are submitted to the National Radiology Data Registry (NRDR) Dose Index Registry (DIR) with the [employer] (ACR). RADIATION OPTIMIZATION: All CT scans at this facility use at least one of these dose optimization te chniques: automated exposure control; mA and/or kV adjustment per patient size (includes targeted exa ms where dose is matched to clinical indication); or iterative reconstruction.
== END 2021-04-12 01:02 ==
PROVIDERS: PCP Family Medicine; Visit Provider Student in an Organized Health Care Education/Training Program
DX: R91.8 Other nonspecific abnormal finding of lung field (principal); C44.90 Unspecified malignant neoplasm of skin, unspecified
CPT/HCPCS: 36415; 71250; 85027; 82728; 83036; 83540

== ENCOUNTER 2021-04-12 02:23 | Outpatient (CLI) | payer MEDICARE, BC, SELFPAY ==
[2021-04-12 10:46] LABS: HCT 38.5 % (36.0-46.0); MCH 26.5 pg (27.0-33.0); MCHC 31.2 % (32.0-36.0); MCV 85.2 fL (80-95); MPV 9.9 fL (8.0-11.0); Platelet Count 352 10^3/uL (130-400); RBC 4.52 10^6/uL (3.93-5.22); RDW 13.7 % (11.7-14.6); RDW-SD 42.5 fL; WBC 7.65 10^3/uL (4.4-10.8)
[2021-04-12 10:58] LABS: Hemoglobin A1C 8.7 % (<5.7)
[2021-04-12 11:20] LABS: Iron 68 ug/dL (50-170)
[2021-04-12 11:32] LABS: Ferritin 215 ng/mL (8-252)
== END 2021-04-12 02:24 | disposition home or self-care (01) ==
LOC: LBO 02:23
PROVIDERS: PCP Family Medicine; Visit Provider Family Medicine
DX: D64.9 Anemia, unspecified (principal); E11.9 Type 2 diabetes mellitus without complications; I10 Essential (primary) hypertension
CPT/HCPCS: 36415; 85027; 82728; 83036; 83540

== ENCOUNTER 2021-06-28 02:40 | Outpatient (CLI) | payer MEDICARE, BC, SELFPAY ==
--- NOTE | 2021-06-28 14:00 | DI.US_ITS ---
APPROVED REPORT EXAM: Comprehensive 2D, Doppler, and color-flow Echocardiogram Other Information Study Quality: Adequate Conclusion Normal left ventricular wall thickness and chamber size. Estimated ejection fraction is 60%. Wall m otion is normal Normal right ventricular size and systolic function The left atrium is moderately dilated. The right atrial size is normal Calcified aortic valve. The number of aortic valve leaflets could not be accurately determined. The re is moderate aortic stenosis. Peak gradient is 49, mean 29 mmHg. Calculated aortic valve area is 1.36 cm??. Mild aortic regurgitation Severe mitral annular calcification. Mild mitral regurgitation Normal tricuspid valve with mild regurgitation. Estimated right ventricular systolic pressure is 32 mmHg Mildly dilated ascending aorta measuring 3.37 cm Wall motion Left Ventricle The left ventricle is normal size. The left ventricular systolic function is normal. The left ventric ular ejection fraction is within the normal range. There is normal left ventricular wall thickness. T here is normal LV segmental wall motion. There is no ventricular septal defect visualized. LVEF is 60 %. Right Ventricle The right ventricle is normal size. The right ventricular systolic function is normal. Atria Left atrium is moderately dilated. The right atrium size is normal. The interatrial septum is intact with no evidence for an atrial septal defect. Aortic Valve Aortic valve is calcified. Number of aortic valve leaflets could not be assessed. Moderate aortic abby nosis. Peak aortic valve gradient is _49.2mmHg. Highest mean aortic valve gradient is 28.8 Calculated AUTUMN by the continuity equation is 1.36cm2.mmHg. Mild aortic regurgitation. Mitral Valve Severe mitral annular calcification. No evidence of mitral valve stenosis. Mild mitral regurgitation. Tricuspid Valve The tricuspid valve is normal in structure. There is no tricuspid valve stenosis. Mild tricuspid regu rgitation. Pulmonic Valve The pulmonary valve is normal in structure. There is no pulmonic valvular stenosis. There is no pulmo sung valvular regurgitation. Great Vessels The aortic root is normal in size. The ascending aorta is mildly dilated. Aortic arch is normal in ca liber. IVC is normal in size and collapses >50% with inspiration. Pericardium There is no pericardial effusion. 2D Dimensions IVSD d PLAX 0.91 cm F: 0.6-1.0 LV Vol A2C d MOD 78.1 mL LVPW d PLAX 0.93 cm F: 0.6 - 1.0 LV Vol A4C d MOD 73.0 mL LVID d PLAX 4.49 cm F: 3.8 - 5.2 LA vol/ BSA A2C s A-L 38.4 mL/m2 LVDs 3.10 cm F: 2.2 - 3.5 LA vol/ BSA A4C s A-L 33.5 mL/m2 Ao Root d 2.53 cm F: 2.7 - 3.3 LA Vol/ BSA Biplane s A-L 38.5 mL/m2 RA Area A4C 15.69 cm2 LA Area A4C s MOD 19.25 cm2 RA Vol/ BSA A4C s A-L 26.6 mL/m2 LA Area A2C s MOD 19.23 cm2 Ao Asc Diam d 3.37 cm F: 2.3 - 3.1 LV EF A4C MOD 60.8 % LV EF Teichholz 57.6 % LV EF A2C MOD 60.3 % LVEF ([facility]) 61.53 % F: 54 - 74 LV EF Biplane MOD 61.5 % LV Volume 63.87 mL F: 46 - 106 SV 48.39 mL LV Volume Index 39.91 mL/m2 F: 29 - 61 SV Index 30.20 mL/m2 LV Vol Biplane MOD 78.6 mL FS 30.15 % M-Mode TAPSE 2.49 cm (M/F) >1.7 LV Diastology MV E' medial 0.062 (>0.07 m/s) E/A Ratio 0.9 LV E/e MED 13.80 (<14) MV E Vmax 0.85 (0.4-1.3 m/s) MV E' lateral 0.084 (>0.1 m/s) MV A Vmax 1.00 (0.4-1.3 m/s) LV E/e LAT 10.10 (<14) MV E/A Ratio 0.84 MV E/E' medial 13.84 MV E/E' lateral 10.14 Aortic Valve LVOT Area 3.00 cm2 AoV Area Vmax 1.36 cm2 LVOT Vmax 1.59 m/s AoV Area/ BSA (Vmax) 0.85 cm2/m2 LVOT Mean Kojo. 1.03 m/s AUTUMN Mean Kojo. 1.22 cm2 LVOT Peak Grad 10.2 mmHg AUTUMN Mean Kojo. Index 0.76 cm2/m2 LVOT Mean Grad 5.1 mmHg AR DT 1650 msec LVOT VTI 0.321 m AR PHT 479 msec LVOT Diam s 1.95 cm AoV Vmax 3.51 m/s Velocity Ratio 0.45 AoV Mean Kojo. 2.54 m/s AoV Peak Grad 49.2 mmHg LVOT SV 96.44 mL AoV Mean Grad 28.8 mmHg AoV VTI 0.721 m AoV Area VTI 1.34 cm2 AoV Area/ BSA (VTI) 0.84 cm/m2 Mitral Valve MV DT 326 (160-240 msec) MV PHT 95 msec MV Area PHT 2.33 cm2 MV VTI 0.295 m MV Area VTI 3.27 (4.0-6.0 cm2) Pulmonary Valve PV Vmax 1.30 (0.5-1.5 m/s) RVOT Peak Gr. 2.79 mmHg PV Peak Grad 6.8 mmHg RVOT Mean Gr. 1.35 mmHg PV Mean Grad 3.9 mmHg RVOT VTI 0.156 m PV VTI 0.275 m RVOT Vmax 0.84 m/s Tricuspid Valve TR Peak Grad 29.4 mmHg TR Vmax 2.71 m/s RA Pressure 3.00 mmHg RVSP (TR) 32.4 mmHg
== END 2021-06-28 03:00 ==
PROVIDERS: PCP Family Medicine; Visit Provider Internal Medicine Cardiovascular Disease
DX: I35.0 Nonrheumatic aortic (valve) stenosis (principal); I77.819 Aortic ectasia, unspecified site
CPT/HCPCS: 93306

== ENCOUNTER → 2021-07-05 10:15 | Outpatient (BNVA) | payer MEDICARE, BC, SELFPAY | PROVIDERS: PCP Family Medicine; Referring Provider Family Medicine; Visit Provider Internal Medicine Cardiovascular Disease | DX: I35.0 Nonrheumatic aortic (valve) stenosis (principal) | CPT/HCPCS: 99214; 99213 ==

== ENCOUNTER 2021-09-15 02:13 | Outpatient (CLI) | payer MEDICARE, BC, SELFPAY ==
[2021-09-15 10:14] LABS: Lab Add On Test DONE
[2021-09-15 12:43] LABS: HCT 35.7 % (36.0-46.0); MCH 25.8 pg (27.0-33.0); MCHC 30.8 % (32.0-36.0); MCV 84 fL (80-95); MPV 10.7 fL (8.0-11.0); Platelet Count 360 10^3/uL (130-400); RBC 4.26 10^6/uL (3.93-5.22); RDW 14.6 % (11.7-14.6); RDW-SD 44.8 fL; WBC 8.03 10^3/uL (4.4-10.8)
[2021-09-15 12:53] LABS: Iron 32 ug/dL (50-170)
[2021-09-15 12:54] LABS: Hemoglobin A1C 6.9 % (<5.7)
[2021-09-15 12:55] LABS: HDL Cholesterol 37 mg/dL (40-60); Triglyceride 75 mg/dL (<150)
[2021-09-15 13:59] LABS: Calculated LDL 52 mg/dL (<100); Cholesterol 104 mg/dL (<200)
[2021-09-15 15:16] LABS: Ferritin 205 ng/mL (8-252)
== END 2021-09-15 02:14 | disposition home or self-care (01) ==
LOC: LOS 02:13
PROVIDERS: PCP Family Medicine; Visit Provider Family Medicine
DX: E11.9 Type 2 diabetes mellitus without complications (principal); E78.5 Hyperlipidemia, unspecified; R53.83 Other fatigue
CPT/HCPCS: 36415; 80061; 85027; 82728; 83036; 83540

== ENCOUNTER 2021-12-27 04:45 | Outpatient (CLI) | payer MEDICARE, BC, SELFPAY ==
[2021-12-27 12:46] LABS: COMMENT (LAB VIEW ONLY) 85.86 mg/dL; Microalb ug/mg Crea 41.8 ug/mg Cr
[2021-12-27 12:47] LABS: ALT 12 U/L (14-59); AST 10 U/L (15-37); Albumin 3.1 g/dL (3.4-5.0); Alkaline Phosphatase 62 U/L (46-116); Anion Gap 7.5 mmol/L (3-11); BUN 17 mg/dL (7-18); Bilirubin, Total 0.4 mg/dL (0.2-1.0); CO2 29.5 mmol/L (21.0-32.0); CREATININE 0.8 mg/dL (0.55-1.02); Calcium 9.4 mg/dL (8.5-10.1); Chloride 103 mmol/L (98-107); Estimated GFR 75.84 (mL/min/1.73m2); Glucose 197 mg/dL (74-106); Potassium 3.9 mmol/L (3.5-5.1); Sodium 140 mmol/L (136-145); Total Protein 8.5 g/dL (6.4-8.2)
[2021-12-27 12:59] LABS: Hemoglobin A1C 8.7 % (<5.7)
== END 2021-12-27 04:46 | disposition home or self-care (01) ==
LOC: LOS 04:45
PROVIDERS: PCP Family Medicine; Visit Provider Family Medicine
DX: E11.9 Type 2 diabetes mellitus without complications (principal); I10 Essential (primary) hypertension
CPT/HCPCS: 36415; 80053; 82043; 82570; 83036

== ENCOUNTER 2022-01-17 03:38 | Outpatient (CLI) | payer MEDICARE, BC, SELFPAY ==
--- NOTE | 2022-01-17 15:00 | NS.NUTBLAN_ITS ---
Linsey was referred for diabetes self management education. 5'2 138 lbs Usual Weight: 125 lbs BMI 25 A1C: 6.9% (09/15/21) PMH: DM- 10 years, HTN Diet Recall: oatmeal and 1/2 banana with tea for B,Lunch: sandwich thin with tuna or deli meat, Dinner: 1/2 cup starch, 4 ounces protein, 1/2 plate vegetables Exercise: 1-2 hours daily Fasting sugar readings this week: 170, 134, 184 Frequent hypoglycemia after lunch- but does not check level Previously started on Jardiance and metformin- either unable to tolerate or co pay too high. DM meds: 35 units levemir BID, 10 units novolog at meals- Linsey reports she has been on this regime for about 1 week. Previously on 20 units lantus qd, 5 units humolog at meals. Insulin was intensified due to A1C reaching 8 % per Linsey. Linsey reports daily blood sugars lows that make her feel shaky and caused her to fall last week and hit her head. Linsey also reports that her weight has increased by 13 lbs in last couple of weeks as her insulin dosage increased. Linsey attributes weight gain due to eating a snack in afternoon due to low blood sugars. Continues to walk at least 1 hour daily, very active, looking forward to skiing this winter. Total Daily Dose of insulin at this time is 100 units- 1.6 units per kg- excessive insulin has lead to frequent hypoglycemia and contributing to weight gain. Overall, Linsey is very knowledgeable about diet and diabetes and works hard every day to eat well and exercise. Rise in A1C acceptable up to 8.5% in view of advanced age and co morbidities. Recommend reducing levemir and novolog to no more than 1 unit/kg. Also, recommend Dexcom 6 or Virginie 2 continuous glucose monitor as is eligible per medicare with QID insulin administration and would help reduce risk of hyper/hypo glycemia. Target A1C for her age group and co morbidities is < 8.5%. Recommend reducing insulin regime to the followin units levemir qd in AM 10 units novolog at breakfast, no insulin at lunch, 10 units novolog at dinner (.9 units insulin/kg) Follow up in 2 weeks.
== END 2022-01-17 03:39 | disposition home or self-care (01) ==
LOC: DS 03:39
PROVIDERS: PCP Family Medicine; Visit Provider Dietitian, Registered
DX: E11.9 Type 2 diabetes mellitus without complications (principal); Z79.4 Long term (current) use of insulin; Z71.3 Dietary counseling and surveillance
CPT/HCPCS: 97802

== ENCOUNTER 2022-04-04 02:42 | Outpatient (CLI) | payer MEDICARE, BC, SELFPAY ==
--- NOTE | 2022-04-04 07:36 | DI.CT_ITS ---
Exam(s) CT CHEST WO EXAM: CT CHEST WO CLINICAL HISTORY: f/u known pulmonary nodules,R91.1 TECHNIQUE: Imaging Protocol: Axial computed tomography images with coronal and sagittal reformatted images were created and reviewed CONTRAST MATERIAL: Intravenous: Omnipaque 350 Contrast volume:structured data ml. COMPARISON: CT CT CHEST WO from 04/12/2021 FINDINGS: Pulmonary parenchyma: No consolidation. Stable area of nodular scarring left upper lobe. Stable tin y nodule superior leg segment left lower lobe. Stable tiny peripheral nodule at the left lung base. No new nodules. Mild dependent changes. Tracheobronchial tree: No bronchiectasis or mucous plugging. Mediastinum and Agatha: No dominant adenopathy or fluid collection. Pleura: No effusion or pneumothorax. Heart: The heart is mildly dilated. Severe coronary artery calcifications are seen. Severe mitral an nular calcification. Aorta: Thoracic aorta non-dilated. Atherosclerotic changes. Upper abdomen: Enlarged spleen Bones: Stable T7 hemangioma. Minimal degenerative changes. Orthopedic hardware left humerus. Th is creates artifact. Soft tissues: Unremarkable. IMPRESSION: Stable area nodularity in the left upper lobe. Stable tiny nodules left lower lobe. No new or suspicious findings. RADIATION DOSE DELIVERED: 461.86mGy.cm Total DLP DATA REPOSITORY: All CT scans at this facility are submitted to the National Radiology Data Registry (NRDR) Dose Index Registry (DIR) with the [employer] (ACR). RADIATION OPTIMIZATION: All CT scans at this facility use at least one of these dose optimization te chniques: automated exposure control; mA and/or kV adjustment per patient size (includes targeted exa ms where dose is matched to clinical indication); or iterative reconstruction.
== END 2022-04-04 03:02 ==
LOC: DI 02:42
PROVIDERS: PCP Family Medicine; Visit Provider Student in an Organized Health Care Education/Training Program
DX: R91.1 Solitary pulmonary nodule (principal)
CPT/HCPCS: 71250

== ENCOUNTER 2022-04-18 17:30 | Outpatient (CLI) | payer MEDICARE, BC, SELFPAY ==
--- NOTE | 2022-04-18 17:00 | DI.RAD_ITS ---
Exam(s) XR KNEE LT 2V AP,LAT EXAM: XR KNEE LT 2V AP,LAT CLINICAL HISTORY: evaluate pathology M25.562 PAIN LEFT KNEE. TECHNIQUE: 2D digital imaging was performed. COMPARISON: Prior x-rays 12/14/2020 FINDINGS: 3 views Stable position alignment of the components of the the prosthesis. No fracture or loosening evident IMPRESSION: DATA REPOSITORY: RADIATION DOSE DELIVERED:
--- NOTE | 2022-04-18 17:00 | DI.RAD_ITS ---
Exam(s) XR ANKLE LT COMPLETE EXAM: XR ANKLE LT COMPLETE CLINICAL HISTORY: evaluate fx M25.572 PAIN LEFT ANKLE. TECHNIQUE: 2D digital imaging was performed. COMPARISON: No exams were available for comparison FINDINGS: 3 views No evidence of acute fracture or widening of the ankle mortise. Talar dome unremarkable. Also vascu lar calcification noted in the anterior tibial artery and the dorsalis pedis vessel vascular calcific ations noted in the posterior tibial artery at and above the ankle level. Mild degenerative changes noted in the medial aspect of the ankle joint. Subtalar joint unremarkable as are the talonavicular and calcaneocuboid articulations. Enthesophyte noted posteriorly at the in sertional aspect of the Achilles and there is a moderate size inferior calcaneal spur noted. IMPRESSION: Some degenerative change in the ankle joint. No fracture. No osteochondral defects talar dome. Vascular calcification noted in both the anterior and posterior tibial arteries. DATA REPOSITORY: RADIATION DOSE DELIVERED:
--- NOTE | 2022-04-18 18:16 | DI.VRAD_ITS ---
PROCEDURE INFORMATION: Exam: XR Left Ankle Exam date and time: 04/18/2022 5:39 PM Age: 76 years old Clinical indication: Other: Eval for FX, pain TECHNIQUE: Imaging protocol: Radiologic exam of the Left ankle. Views: 3 or more views. COMPARISON: CR XR KNEE LT 3V AP,LAT,BRANDIE 12/14/2020 12:53 PM FINDINGS: Bones/joints: Degenerative changes in the medial and lateral malleolus. There is no evidence of acute fracture.There is no evidence of malalignment or dislocation. Soft tissues: Normal. IMPRESSION: 1. Degenerative changes in the medial and lateral malleolus. 2. There is no evidence of acute fracture.There is no evidence of malalignment or dislocation. Dictated and Authenticated by: Binh Elizondo MD. Ordering:CLINTON Pal MD
--- NOTE | 2022-04-18 18:17 | DI.VRAD_ITS ---
PROCEDURE INFORMATION: Exam: XR Left Knee Exam date and time: 04/18/2022 5:42 PM Age: 76 years old Clinical indication: Other: Eval pathology TECHNIQUE: Imaging protocol: Radiologic exam of the Left knee. Views: 1 or 2 views. COMPARISON: CR XR KNEE LT 3V AP,LAT,BRANDIE 12/14/2020 12:53 PM FINDINGS: Bones/joints: Total knee replacement without evidence of complication. There is no evidence of acute fracture.There is no evidence of malalignment or dislocation. Soft tissues: Normal. IMPRESSION: 1. Total knee replacement without evidence of complication. 2. There is no evidence of acute fracture.There is no evidence of malalignment or dislocation. Dictated and Authenticated by: Binh Elizondo MD. Ordering:CLINTON Pal MD
== END 2022-04-18 17:50 ==
LOC: DI 17:30
PROVIDERS: PCP Family Medicine; Visit Provider Nurse Practitioner Family
DX: M25.572 Pain in left ankle and joints of left foot (principal); M25.562 Pain in left knee; Z96.652 Presence of left artificial knee joint; M19.072 Primary osteoarthritis, left ankle and foot
CPT/HCPCS: 73560; 73610

== ENCOUNTER 2022-04-22 02:10 | Outpatient (CLI) | payer MEDICARE, BC, SELFPAY ==
--- NOTE | 2022-04-22 13:00 | NS.NUTBLAN_ITS ---
Linsey was referred by Vince Medina and Dr. Pearson for education on how to replace a dexcom G6 sensor. Linsey demonstrated that she can remove and replace sensor and transmitter, program her reader. PMH: Dm2 DM meds: Tresiba 50 units around 10 pm, 6 units humalog at meals A1C (12/27/21) 8.1% AGP report (last 9 days) Average Blood Sugar: 171 mg/dl Time in Range: 59% 180-250 mg/dl: 28% >250 mg/dl: 11% No hypoglycemic events. CGM results indicates that Linsey is not meeting her glycemic goals. Will defer to Vince Medina (report sent to him) to adjust insulin. AGP report given to Linsey, sent to Shelly Medina and Trudi Pearson. Will be available as needed.
== END 2022-04-22 02:11 | disposition home or self-care (01) ==
LOC: DS 02:11
PROVIDERS: PCP Family Medicine; Visit Provider Dietitian, Registered
DX: E11.9 Type 2 diabetes mellitus without complications (principal); Z79.4 Long term (current) use of insulin; Z71.3 Dietary counseling and surveillance
CPT/HCPCS: 97802

== ENCOUNTER 2022-05-30 11:21 | Outpatient (CLI) | payer MEDICARE, BC, SELFPAY ==
[2022-05-30 12:18] LABS: HCT 34.9 % (36.0-46.0); HGB 10.4 g/dL (11.2-15.7); MCHC 29.8 % (32.0-36.0); MCV 84 fL (80-95); MPV 11.3 fL (8.0-11.0); Platelet Count 249 10^3/uL (130-400); RBC 4.16 10^6/uL (3.93-5.22); RDW 15.8 % (11.7-14.6); RDW-SD 47.9 fL; WBC 8.47 10^3/uL (4.4-10.8)
[2022-05-30 12:31] LABS: Iron 34 ug/dL (50-170)
[2022-05-30 12:43] LABS: ALT 10 U/L (14-59); AST 12 U/L (15-37); Albumin 3.2 g/dL (3.4-5.0); Alkaline Phosphatase 68 U/L (46-116); Anion Gap 9.6 mmol/L (3-11); BUN 17 mg/dL (7-18); Bilirubin, Total 0.4 mg/dL (0.2-1.0); CO2 27.4 mmol/L (21.0-32.0); CREATININE 0.9 mg/dL (0.55-1.02); Calcium 9.6 mg/dL (8.5-10.1); Chloride 106 mmol/L (98-107); Estimated GFR 65.84 (mL/min/1.73m2); Ferritin 213 ng/mL (8-252); Glucose 66 mg/dL (74-106); Potassium 4.3 mmol/L (3.5-5.1); Sodium 143 mmol/L (136-145)
== END 2022-05-30 11:22 | disposition home or self-care (01) ==
LOC: LOS 11:21
PROVIDERS: PCP Family Medicine; Visit Provider Family Medicine
DX: E11.9 Type 2 diabetes mellitus without complications (principal); I10 Essential (primary) hypertension; K57.30 Diverticulosis of large intestine without perforation or abscess without bleeding; M25.511 Pain in right shoulder
CPT/HCPCS: 36415; 80053; 85027; 82728; 83540

== ENCOUNTER 2022-06-15 02:37 | Outpatient (RCR) | payer MEDICARE, BC, SELFPAY ==
[2022-06-15] MEDS: Normal Saline Flush 10 ML SYR IVP (13:22)
[2022-06-15] MEDS: SODIUM FER. GLUC./SUC. 125 MG in Normal Saline 100 ML 110 MG IVPB (13:33)
== END 2022-06-24 23:59 | disposition home or self-care (01) ==
LOC: INF 02:37
PROVIDERS: PCP Family Medicine; Visit Provider Family Medicine
DX: D50.9 Iron deficiency anemia, unspecified (principal)
CPT/HCPCS: 96365; J2916

== ENCOUNTER 2022-07-06 01:26 | Outpatient (CLI) | payer MEDICARE, BC, SELFPAY ==
--- NOTE | 2022-07-06 10:34 | DI.US_ITS ---
APPROVED REPORT EXAM: Comprehensive 2D, Doppler, and color-flow Echocardiogram Patient Location: Out-Patient Inward Toll Operator: Bry Stahl RDMS, RVT Indications: aortic stenosis Other Information Study Quality: Adequate Conclusion Normal left ventricular wall thickness and chamber size. Ejection fraction is 60%. Wall motion is n ormal Normal right ventricular size and systolic function Left atrium is mildly dilated. Right atrial size is normal Aortic valve is calcified. Number of aortic valve leaflets could not be accurately determined. Ther e is severe aortic stenosis. Peak gradient is 62, mean is 44 mmHg. Calculated aortic valve area is 0.96 cm??. There is trace aortic regurgitation There is mitral annular calcification and mild mitral regurgitation Normal tricuspid valve with moderate regurgitation. Estimated right ventricular systolic pressure is 39 mmHg Wall motion Left Ventricle The left ventricle is normal size. The left ventricular systolic function is normal. The left ventric ular ejection fraction is within the normal range. There is normal left ventricular wall thickness. T here is normal LV segmental wall motion. There is no ventricular septal defect visualized. LVEF is 60 %. Right Ventricle The right ventricle is normal size. The right ventricular systolic function is normal. The RVSP is 39 mmHg. Atria Left atrium is mildly dilated. The right atrium size is normal. The interatrial septum is intact wit h no evidence for an atrial septal defect. Aortic Valve Aortic valve is calcified. Number of aortic valve leaflets could not be assessed. Severe aortic sten osis. Peak aortic valve gradient is 62.3 mmHg. Highest mean aortic valve gradient is 43.6 mmHg. Calcu lated AUTUMN by the continuity equation is 0.96 cm2. Trace aortic regurgitation. Mitral Valve mitral annular calcification. No evidence of mitral valve stenosis. Mild mitral regurgitation. Tricuspid Valve The tricuspid valve is normal in structure. There is no tricuspid valve stenosis. Moderate tricuspid regurgitation. Pulmonic Valve The pulmonary valve is normal in structure. There is no pulmonic valvular stenosis. There is no pulmo sung valvular regurgitation. Great Vessels The aortic root is normal in size. The ascending aorta is normal Aortic arch is normal in caliber. Th e IVC is normal in size and collapses >50% with inspiration. Pericardium There is no pericardial effusion. 2D Dimensions IVSD d PLAX 0.91 cm F: 0.6-1.0 LV Vol A2C d MOD 96.5 mL LVPW d PLAX 0.92 cm F: 0.6 - 1.0 LV Vol A4C d MOD 102.9 mL LVID d PLAX 3.92 cm F: 3.8 - 5.2 LA vol/ BSA A4C s A-L 46.9 mL/m2 LVDs 2.65 cm F: 2.2 - 3.5 LA Area A4C s MOD 23.59 cm2 Ao Root d 2.51 cm F: 2.7 - 3.3 LV EF A4C MOD 59.3 % Ao Asc Diam d 3.20 cm F: 2.3 - 3.1 LV EF A2C MOD 58.6 % LV EF Teichholz 59.5 % LV EF Biplane MOD 60.2 % LVEF ([facility]) 60.20 % F: 54 - 74 SV 64.06 mL LV Volume 85.40 mL F: 46 - 106 SV Index 38.76 mL/m2 LV Volume Index 51.75 mL/m2 F: 29 - 61 LV Vol Biplane MOD 106.4 mL FS 31.10 % M-Mode TAPSE 2.50 cm (M/F) >1.7 LV Diastology MV E' medial 0.105 (>0.07 m/s) E/A Ratio 1.0 LV E/e MED 9.35 (<14) MV E Vmax 0.98 (0.4-1.3 m/s) MV E' lateral 0.100 (>0.1 m/s) MV A Vmax 1.00 (0.4-1.3 m/s) LV E/e LAT 9.80 (<14) MV E/A Ratio 0.95 MV E/E' medial 9.37 MV E/E' lateral 9.83 Aortic Valve LVOT Area 2.92 cm2 AoV Area Vmax 0.96 cm2 LVOT Vmax 1.29 m/s AoV Area/ BSA (Vmax) 0.58 cm2/m2 LVOT Mean Kojo. 0.85 m/s AUTUMN Mean Kojo. 0.76 cm2 LVOT Peak Grad 6.7 mmHg AUTUMN Mean Kojo. Index 0.46 cm2/m2 LVOT Mean Grad 3.4 mmHg AR DT 1624 msec LVOT VTI 0.284 m AR PHT 471 msec LVOT Diam s 1.90 cm AoV Vmax 3.95 m/s Velocity Ratio 0.33 AoV Mean Kojo. 3.24 m/s AoV Peak Grad 62.3 mmHg LVOT SV 82.97 mL AoV Mean Grad 43.6 mmHg AoV VTI 0.966 m AoV Area VTI 0.86 cm2 AoV Area/ BSA (VTI) 0.52 cm/m2 Mitral Valve MV DT 257 (160-240 msec) MV PHT 75 msec MV Area PHT 2.95 cm2 MV VTI 0.324 m MV Area VTI 2.56 (4.0-6.0 cm2) Pulmonary Valve PV Vmax 1.59 (0.5-1.5 m/s) RVOT Peak Gr. 2.63 mmHg PV Peak Grad 10.1 mmHg RVOT Mean Gr. 1.40 mmHg PV Mean Grad 7.3 mmHg RVOT VTI 0.152 m PV VTI 0.355 m RVOT Vmax 0.81 m/s Tricuspid Valve TR Peak Grad 35.9 mmHg TR Vmax 3.00 m/s RA Pressure 3.00 mmHg RVSP (TR) 39.0 mmHg
== END 2022-07-06 01:46 ==
LOC: DI 01:27
PROVIDERS: PCP Family Medicine; Visit Provider Internal Medicine Cardiovascular Disease
DX: I35.0 Nonrheumatic aortic (valve) stenosis (principal)
CPT/HCPCS: 93306; 96365; J2916

== ENCOUNTER 2022-07-11 02:30 | Outpatient (CLI) | payer MEDICARE, BC, SELFPAY ==
[2022-07-11 12:17] LABS: HCT 34.7 % (36.0-46.0); HGB 10.6 g/dL (11.2-15.7); MCH 25.4 pg (27.0-33.0); MCHC 30.5 % (32.0-36.0); MCV 83 fL (80-95); MPV 11.6 fL (8.0-11.0); Platelet Count 237 10^3/uL (130-400); RBC 4.18 10^6/uL (3.93-5.22); RDW 15.9 % (11.7-14.6); RDW-SD 48.6 fL; WBC 7.48 10^3/uL (4.4-10.8)
[2022-07-11 12:32] LABS: Iron 25 ug/dL (50-170)
[2022-07-11 12:44] LABS: Ferritin 371 ng/mL (8-252)
[2022-07-11 13:00] LABS: Hemoglobin A1C 6.4 % (<5.7)
== END 2022-07-11 02:31 | disposition home or self-care (01) ==
LOC: LOS 02:30
PROVIDERS: PCP Family Medicine; Visit Provider Family Medicine
DX: D64.9 Anemia, unspecified (principal); D50.8 Other iron deficiency anemias; E11.9 Type 2 diabetes mellitus without complications; R06.02 Shortness of breath
CPT/HCPCS: 36415; 85027; 82728; 83036; 83540

== ENCOUNTER 2022-07-13 02:28 | Outpatient (RCR) | payer MEDICARE, BC, SELFPAY ==
[2022-06-29] MEDS: SODIUM FER. GLUC./SUC. 125 MG in Normal Saline 100 ML 110 MG IVPB (13:34)
[2022-07-06 12:04] VITALS: BP 120/56; PULSE 66; RESP 18; TEMP 36.5; O2SAT 98
[2022-07-06] MEDS: Normal Saline Flush 10 ML SYR IVP (12:11)
[2022-07-06] MEDS: SODIUM FER. GLUC./SUC. 125 MG in Normal Saline 100 ML 110 MG IVPB (12:12)
[2022-07-13] MEDS: Normal Saline Flush 10 ML SYR IVP (13:07)
[2022-07-13] MEDS: SODIUM FER. GLUC./SUC. 125 MG in Normal Saline 100 ML 110 MG IVPB (13:11)
== END 2022-07-24 23:59 | disposition home or self-care (01) ==
LOC: INF 02:28
PROVIDERS: PCP Family Medicine; Visit Provider Family Medicine
DX: D50.9 Iron deficiency anemia, unspecified (principal)
CPT/HCPCS: 96365; J2916

== ENCOUNTER 2022-07-26 08:21 | Outpatient (CLI) | payer MEDICARE, BC, SELFPAY ==
--- NOTE | 2022-07-26 08:15 | RT.EKG_ITS ---
APPROVED REPORT Exam: Resting ECG Reason for Exam: afib Patient Location: O HR:79 bpm ECG Measurements Heart Rate 79 AXIS CA 169 P 37 QRSd 87 QRS -4 QT 396 T 30 QTc 455 Conclusion Sinus rhythm...normal P axis, V-rate 50- 99 Artifact in lead(s) I,II,III,aVR,aVL,V1,V2,V4,V5,V6 Normal Electrocardiogram
== END 2022-07-26 08:22 | disposition home or self-care (01) ==
LOC: DI.CARD 08:21
PROVIDERS: PCP Family Medicine; Visit Provider Internal Medicine Cardiovascular Disease
DX: I35.0 Nonrheumatic aortic (valve) stenosis (principal)
CPT/HCPCS: 93010

== ENCOUNTER → 2022-07-26 10:33 | Outpatient (BNVA) | payer MEDICARE, BC, SELFPAY | PROVIDERS: PCP Family Medicine; Referring Provider Family Medicine; Visit Provider Internal Medicine Cardiovascular Disease | DX: D64.9 Anemia, unspecified (principal); I35.0 Nonrheumatic aortic (valve) stenosis | CPT/HCPCS: 93005; 99214 ==

== ENCOUNTER 2022-08-25 04:28 | Outpatient (CLI) | payer MEDICARE, BC, SELFPAY ==
[2022-08-25 12:23] LABS: HCT 35.8 % (36.0-46.0); HGB 10.8 g/dL (11.2-15.7); MCH 25.4 pg (27.0-33.0); MCHC 30.2 % (32.0-36.0); MCV 84 fL (80-95); MPV 10.9 fL (8.0-11.0); Platelet Count 192 10^3/uL (130-400); RBC 4.26 10^6/uL (3.93-5.22); RDW 15.8 % (11.7-14.6); RDW-SD 48.1 fL; WBC 7.75 10^3/uL (4.4-10.8)
[2022-08-25 12:37] LABS: Iron 36 ug/dL (50-170)
[2022-08-25 12:45] LABS: Ferritin 346 ng/mL (8-252)
[2022-08-25 12:55] LABS: Hemoglobin A1C 6.3 % (<5.7)
== END 2022-08-25 04:29 | disposition home or self-care (01) ==
LOC: LOS 04:28
PROVIDERS: PCP Family Medicine; Visit Provider Family Medicine
DX: D50.8 Other iron deficiency anemias (principal); E11.9 Type 2 diabetes mellitus without complications
CPT/HCPCS: 36415; 85027; 82728; 83036; 83540

== ENCOUNTER 2022-09-14 02:19 | Outpatient (RCR) | payer MEDICARE, BC, SELFPAY ==
[2022-08-31] MEDS: Normal Saline Flush 10 ML SYR IVP (13:04)
[2022-08-31] MEDS: SODIUM FER. GLUC./SUC. 125 MG in Normal Saline 100 ML 110 MG IVPB (13:04)
[2022-09-07] MEDS: SODIUM FER. GLUC./SUC. 125 MG in Normal Saline 100 ML 110 MG IVPB (13:42)
[2022-09-07] MEDS: Normal Saline Flush 10 ML SYR IVP (13:43)
[2022-09-14] MEDS: Normal Saline Flush 10 ML SYR IVP (13:15)
[2022-09-14] MEDS: SODIUM FER. GLUC./SUC. 125 MG in Normal Saline 100 ML 110 MG IVPB (13:15)
== END 2022-09-23 23:59 | disposition home or self-care (01) ==
LOC: INF 02:19
PROVIDERS: PCP Family Medicine; Visit Provider Family Medicine
DX: D50.9 Iron deficiency anemia, unspecified (principal)
CPT/HCPCS: 96365; J2916

== ENCOUNTER 2022-10-18 03:27 | Outpatient (RCR) | payer MEDICARE, BC, SELFPAY ==
[2022-10-18] MEDS: SODIUM FER. GLUC./SUC. 125 MG in Normal Saline 100 ML 110 MG IVPB (13:18)
[2022-10-18] MEDS: Normal Saline Flush 10 ML SYR IVP (13:19)
== END 2022-10-24 23:59 | disposition home or self-care (01) ==
LOC: INF 03:27
PROVIDERS: PCP Family Medicine; Visit Provider Family Medicine
DX: D50.9 Iron deficiency anemia, unspecified (principal)
CPT/HCPCS: 96365; J2916

== ENCOUNTER 2022-10-24 08:53 | Outpatient (CLI) | payer MEDICARE, BC, SELFPAY ==
[2022-10-24 14:12] LABS: TSH (W/Ref FT4) 4.45 uIU/mL (0.36-3.74); Vitamin B12 704 pg/mL (193-986)
[2022-10-24 14:32] LABS: FREE T4 0.88 ng/dL (0.76-1.46)
== END 2022-10-24 08:54 | disposition home or self-care (01) ==
LOC: LOS 08:54
PROVIDERS: PCP Family Medicine; Referring Provider Family Medicine; Visit Provider Family Medicine
DX: G62.9 Polyneuropathy, unspecified (principal); I10 Essential (primary) hypertension
CPT/HCPCS: 36415; 82607; 84439; 84443

== ENCOUNTER 2022-11-08 02:12 | Outpatient (RCR) | payer MEDICARE, BC, SELFPAY ==
[2022-10-25] MEDS: SODIUM FER. GLUC./SUC. 125 MG in Normal Saline 100 ML 110 MG IVPB (13:20)
[2022-10-25] MEDS: Normal Saline Flush 10 ML SYR IVP (13:20)
[2022-11-01] MEDS: SODIUM FER. GLUC./SUC. 125 MG in Normal Saline 100 ML 110 MG IVPB (09:20)
[2022-11-01] MEDS: Normal Saline Flush 10 ML SYR IVP (09:24)
[2022-11-08] MEDS: SODIUM FER. GLUC./SUC. 125 MG in Normal Saline 100 ML 110 MG IVPB (09:12)
[2022-11-08] MEDS: Normal Saline Flush 10 ML SYR IVP (09:12)
== END 2022-11-24 23:59 | disposition home or self-care (01) ==
LOC: INF 02:12
PROVIDERS: PCP Family Medicine; Visit Provider Family Medicine
DX: D50.8 Other iron deficiency anemias (principal)
CPT/HCPCS: 96365; J2916

== ENCOUNTER 2023-01-23 10:28 | Outpatient (RCR) | payer MEDICARE, BC, SELFPAY | END 2023-01-24 23:59 | disposition home or self-care (01) | LOC: CR 10:28 | PROVIDERS: PCP Family Medicine; Visit Provider Internal Medicine Cardiovascular Disease | DX: Z95.2 Presence of prosthetic heart valve (principal); I35.0 Nonrheumatic aortic (valve) stenosis; Z51.89 Encounter for other specified aftercare | CPT/HCPCS: S9472 ==

== ENCOUNTER 2023-02-22 10:56 | Outpatient (RCR) | payer MEDICARE, BC, SELFPAY | END 2023-02-23 23:59 | disposition home or self-care (01) | LOC: CR 10:56 | PROVIDERS: PCP Family Medicine; Visit Provider Internal Medicine Cardiovascular Disease | DX: I35.0 Nonrheumatic aortic (valve) stenosis (principal); Z95.4 Presence of other heart-valve replacement; Z51.89 Encounter for other specified aftercare | CPT/HCPCS: S9472 ==

== ENCOUNTER 2023-03-02 04:51 | Outpatient (CLI) | payer MEDICARE, BC, SELFPAY ==
[2023-03-02 12:24] LABS: HCT 37.4 % (36.0-46.0); HGB 11.3 g/dL (11.2-15.7); MCH 26.2 pg (27.0-33.0); MCHC 30.2 % (32.0-36.0); MCV 87 fL (80-95); MPV 11.2 fL (8.0-11.0); Platelet Count 183 10^3/uL (130-400); RBC 4.31 10^6/uL (3.93-5.22); RDW 14.9 % (11.7-14.6); RDW-SD 47.6 fL; WBC 9.41 10^3/uL (4.4-10.8)
[2023-03-02 12:37] LABS: Iron 34 ug/dL (50-170)
[2023-03-02 12:45] LABS: ALT 12 U/L (14-59); AST 9 U/L (15-37); Albumin 3.1 g/dL (3.4-5.0); Alkaline Phosphatase 67 U/L (46-116); Anion Gap 7.4 mmol/L (3-11); BUN 19 mg/dL (7-18); Bilirubin, Total 0.3 mg/dL (0.2-1.0); CO2 30.6 mmol/L (21.0-32.0); Calcium 9.3 mg/dL (8.5-10.1); Chloride 103 mmol/L (98-107); Estimated GFR 57.66 (mL/min/1.73m2); Ferritin 570 ng/mL (8-252); Glucose 154 mg/dL (74-106); Potassium 4.2 mmol/L (3.5-5.1); Sodium 141 mmol/L (136-145)
== END 2023-03-02 04:52 | disposition home or self-care (01) ==
LOC: LOS 04:51
PROVIDERS: PCP Family Medicine; Visit Provider Family Medicine
DX: K57.30 Diverticulosis of large intestine without perforation or abscess without bleeding (principal); I10 Essential (primary) hypertension; C44.92 Squamous cell carcinoma of skin, unspecified; E11.9 Type 2 diabetes mellitus without complications
CPT/HCPCS: 36415; 80053; 85027; 82728; 83036; 83540

== ENCOUNTER 2023-03-24 10:00 | Outpatient (RCR) | payer MEDICARE, BC, SELFPAY | END 2023-03-26 23:59 | disposition home or self-care (01) | LOC: CR 10:00 | PROVIDERS: PCP Family Medicine; Visit Provider Internal Medicine Cardiovascular Disease | DX: I35.0 Nonrheumatic aortic (valve) stenosis (principal); Z95.2 Presence of prosthetic heart valve; Z51.89 Encounter for other specified aftercare | CPT/HCPCS: S9472 ==

== ENCOUNTER 2023-04-24 10:27 | Outpatient (RCR) | payer MEDICARE, BC, SELFPAY | END 2023-04-26 23:59 | disposition home or self-care (01) | LOC: CR 10:27 | PROVIDERS: PCP Family Medicine; Visit Provider Internal Medicine Interventional Cardiology | DX: I35.0 Nonrheumatic aortic (valve) stenosis (principal); Z95.4 Presence of other heart-valve replacement; Z51.89 Encounter for other specified aftercare | CPT/HCPCS: S9472 ==

== ENCOUNTER 2023-05-19 10:23 | Outpatient (RCR) | payer MEDICARE, BC, SELFPAY | END 2023-05-25 23:59 | disposition home or self-care (01) | LOC: CR 10:23 | PROVIDERS: PCP Family Medicine; Visit Provider Internal Medicine Cardiovascular Disease | DX: I35.0 Nonrheumatic aortic (valve) stenosis (principal); Z95.2 Presence of prosthetic heart valve; Z51.89 Encounter for other specified aftercare | CPT/HCPCS: S9472 ==

== ENCOUNTER → 2023-05-30 14:45 | Outpatient (CLI) | payer MEDICARE, BC, SELFPAY ==
--- NOTE | 2023-05-30 12:15 | DI.RAD_ITS ---
Exam(s) XR CHEST 2V PA LATERAL EXAM: XR CHEST 2V PA LATERAL CLINICAL HISTORY: cough R05.9 TECHNIQUE: 2D digital imaging was performed of the chest. Two images were obtained. PA and lateral views were obtained. COMPARISON: CR CHEST 2 VIEWS PA,LAT from 03/11/2009 FINDINGS: MEDIASTINUM: Normal. HEART: Normal. Aortic valve replacement. PULMONARY VASCULATURE: Normal. LUNGS: Clear. PLEURAL SPACE: No pleural effusion or pneumothorax. BONE:Within normal limits for the patient's age. Sideplate and screws in the proximal right humerus. OTHER FINDINGS:Normal. IMPRESSION: No acute pulmonary findings. DATA REPOSITORY: RADIATION DOSE DELIVERED:
== END ==
PROVIDERS: PCP Family Medicine; Visit Provider Family Medicine
DX: R05.9 Cough, unspecified (principal)
CPT/HCPCS: 71046

== ENCOUNTER 2023-06-26 13:58 | Outpatient (CLI) | payer MEDICARE, BC, SELFPAY ==
--- NOTE | 2023-06-26 13:45 | RT.EKG_ITS ---
APPROVED REPORT Exam: Resting ECG Reason for Exam: chest discomfort Patient Location: O HR:76 bpm ECG Measurements Heart Rate 76 AXIS OK 180 P 20 QRSd 92 QRS 5 QT 405 T 25 QTc 456 Conclusion Sinus rhythm...normal P axis, V-rate 50- 99 Normal Electrocardiogram
== END 2023-06-26 13:59 | disposition home or self-care (01) ==
LOC: DI.CM 13:58
PROVIDERS: PCP Family Medicine; Visit Provider Nurse Practitioner Family
DX: R07.89 Other chest pain (principal)
CPT/HCPCS: 93010

== ENCOUNTER 2023-06-26 14:48 | Emergency (ER) | payer MEDICARE, BC, SELFPAY ==
[2023-06-26] VITALS (14 sets, daily range): BP systolic 132–158; BP diastolic 48–85; PULSE 69–76; RESP 11–18; TEMP 36.8; O2SAT 99–100
--- NOTE | 2023-06-26 14:30 | RT.EKG_ITS ---
APPROVED REPORT Exam: Resting ECG Reason for Exam: Chest Pain Patient Location: E HR:74 bpm ECG Measurements Heart Rate 74 AXIS TN 182 P 22 QRSd 103 QRS 2 QT 411 T 43 QTc 456 Conclusion Sinus rhythm...normal P axis, V-rate 60- 99 Consider anteroseptal infarct...Q >30mS, dimin R, V1-V2 sinus rhtyhm, normal axis, normal intervals, non ischemic
--- NOTE | 2023-06-26 15:08 | ED.GENADUL_ITS ---
Discharge Plan Disposition Patient Disposition: Home Condition: Improving Discharge Details Chief Complaint: Chest Pain Clinical Impression: Chest pain Primary Care Provider: Pat eParson ED Provider: Colby Osborn Home Meds and New Rx's Prescriptions: No Action (DME) Blood Glucose Test Strip 1 ea Miscellaneous DAILY Qty: 100 5RF Rx Instructions: one touch ultra METER. PT DOES NOT USE INSULIN. DIAGNOSIS CODE E11.9 .test once daily (DME) lancets 28 gauge misc 1 ea Miscellaneous DAILY Qty: 100 5RF Rx Instructions: FOR ONE TOUCH ULTRA METER. NO INSULIN. DIAGNOSIS CODE E11.9. Test once daily cyanocobalamin (vitamin B-12) 1,000 mcg capsule 1,000 mcg PO DAILY amoxicillin 500 mg tablet 2,000 mg PO ONCE PRN Levemir FlexTouch U100 Insulin 100 unit/mL (3 mL) insulin pen 35 unit subcut BID Qty: 45 5RF Hold Instructions: Home Medication placed on hold at Doctor's office (DME) Aerochamber MV Spacer See Rx Instructions .Route Qty: 1 0RF Rx Instructions: As directed aspirin 81 mg tablet,delayed release (DR/EC) 81 mg PO DAILY albuterol sulfate [Proventil HFA] 90 mcg/actuation HFA aerosol inhaler 2 puff inhalation Q6H PRN (Reason: shortness of breath or wheezing) Qty: 8.5 0RF albuterol sulfate [Proventil HFA] 90 mcg/actuation HFA aerosol inhaler 2 puff inhalation Q6H PRN (Reason: shortness of breath or wheezing) Qty: 8.5 0RF pantoprazole [Protonix] 40 mg tablet,delayed release (DR/EC) 40 mg PO DAILY Qty: 90 4RF glucosam-chond db-upkfob-it ac 1 EACH capsule 1 ea PO BID calcium carbonate-vitamin D3 [Os-Reji 500 + D3] 1 EACH tablet 1 ea PO BID (DME) blood-glucose meter 1 EACH misc 1 ea Miscellaneous ONCE Qty: 1 Rx Instructions: FOR ONE TOUCH ULTRA MINI GLUCOMETER Dx 250.02 Fiber Gummies (with chromium) 1 EACH tablet,chewable 1 ea PO DAILY mupirocin 2 % ointment 1 applic TP BID Qty: 30 0RF ferrous sulfate [Iron (ferrous sulfate)] 325 mg (65 mg iron) tablet 325 mg PO DAILY (DME) Dexcom G6 Quality Inspector Misc See Rx Instructions .Route Qty: 1 0RF Rx Instructions: As directed E11.9 (DME) Dexcom G6 Sensor Device See Rx Instructions .Route Qty: 3 8RF Rx Instructions: As directed. E11.9 (DME) Dexcom G6 Transmitter Device See Rx Instructions .Route Qty: 1 4RF Rx Instructions: As directed. E11.9 (DME) pen needle, diabetic [BD Ultra-Fine Mini Pen Needle] 31 gauge x 3/16 needle See Rx Instructions .ROUTE .MEDSUPPLY Qty: 360 7RF Rx Instructions: Five injections per day E11.9 insulin aspart U-100 [Novolog FlexPen U-100 Insulin] 100 unit/mL (3 mL) insulin pen 8 unit subcut TID Qty: 30 4RF sertraline [Zoloft] 100 mg tablet 50 mg PO HS Qty: 45 3RF atorvastatin 20 mg tablet 20 mg PO QPM Qty: 90 4RF insulin degludec [Tresiba FlexTouch U-200] 200 unit/mL (3 mL) insulin pen 50 - 80 unit subcut DAILY Qty: 27 4RF prednisone 20 mg tablet See Rx Instructions PO DAILY Qty: 11 0RF Rx Instructions: 2 tabs daily for 3 days; 1 tab daily for 3 days; 0.5 tab daily for 4 days codeine-guaifenesin [Guaifenesin AC] 10-100 mg/5 mL liquid 5 ml PO Q6H PRN (Reason: cough) Qty: 120 0RF lisinopril 10 mg tablet 10 mg PO DAILY Qty: 90 4RF Discharge Instructions Instructions: Chest Pain (ED) Additional Instructions: Please follow-up closely with your primary care physician. Please return to the emergency department for any worsening symptoms HPI General Date/Time Provider Initiated Documentation: 06/26/23 14:53 . HPI Narrative: 77-year-old female history of diabetes B-cell lymphoma, aortic stenosis with valve replacement, presents with substernal chest discomfort over the last 3 days, sharp in nature worse with movement and breathing. Patient fell while skiing 3 days ago on her right side hitting her right hip ambulatory since this event. Denies history of thromboembolic disease or coronary disease. Related Data Home Medications Medication Instructions Recorded Confirmed calcium carbonate 500 mg-vitamin 1 ea PO BID 08/22/12 06/26/23 D3 15 mcg (600 unit) tablet (Os-Reji 500 + D3) jeirpkckmf-gvlieydggf-llgsxnrx-hyalur 1 ea PO BID 08/22/12 06/26/23 ac 375 mg-300 mg-175 mg-2 mg cap blood-glucose meter #1 ea 07/30/13 05/11/23 inulin-chromium picolinate 2 1 ea PO DAILY 11/24/16 06/26/23 gram-100 mcg chewable tablet (Fiber Gummies (with chromium)) mupirocin 2 % topical ointment 1 applic topical BID #30 grams 07/29/19 06/26/23 blood sugar diagnostic (Blood #100 strips 10/17/19 05/11/23 Glucose Test strips) lancets 28 gauge #100 ea 10/17/19 05/11/23 cyanocobalamin (vitamin B-12) 1,000 mcg PO DAILY 08/03/20 06/26/23 1,000 mcg capsule amoxicillin 500 mg tablet 2,000 mg PO ONCE PRN 10/08/20 06/26/23 ferrous sulfate 325 mg (65 mg 325 mg PO DAILY 01/19/21 06/26/23 iron) tablet (Iron (ferrous sulfate)) blood-glucose meter,continuous #1 ea 01/24/22 05/11/23 (Dexcom G6 Quality Inspector) blood-glucose sensor (Dexcom G6 #3 ea 01/24/22 05/11/23 Sensor device) blood-glucose transmitter (Dexcom #1 ea 01/24/22 05/11/23 G6 Transmitter device) inhalational spacing device #1 ea 01/26/22 05/11/23 (Aerochamber MV spacer) insulin detemir U-100 100 unit/mL 35 unit (0.35 mL) subcut BID E11.9 03/29/22 06/26/23 (3 mL) subcutaneous pen (Levemir #45 mL FlexTouch U-100 Insulin) pen needle, diabetic 31 gauge x #360 ea 07/13/22 05/11/2306/09 (BD Ultra-Fine Mini Pen Needle) insulin aspart U-100 100 unit/mL 8 unit (0.08 mL) subcut TID E11.9 11/19/22 06/26/23 (3 mL) subcutaneous pen (Novolog #30 mL FlexPen U-100 Insulin aspart) pantoprazole 40 mg tablet,delayed 40 mg PO DAILY #90 tabs 11/29/22 06/26/23 release (Protonix) aspirin 81 mg tablet,delayed 81 mg PO DAILY 12/22/22 06/26/23 release albuterol sulfate 90 mcg/actuation 2 puff inhalation Q6H PRN 02/13/23 06/26/23 aerosol inhaler (Proventil HFA) shortness of breath or wheezing #8.5 grams sertraline 100 mg tablet (Zoloft) 50 mg (1/2 x 100 mg) PO HS #45 tabs 04/03/23 06/26/23 albuterol sulfate 90 mcg/actuation 2 puff inhalation Q6H PRN 05/05/23 06/26/23 aerosol inhaler (Proventil HFA) shortness of breath or wheezing #8.5 grams atorvastatin 20 mg tablet 20 mg PO QPM #90 tabs 05/08/23 06/26/23 insulin degludec 200 unit/mL (3 50 - 80 unit (0.25 - 0.4 mL) 05/08/23 06/26/23 mL) subcutaneous pen (Tresiba subcut DAILY #27 mL FlexTouch U-200 insulin) codeine 10 mg-guaifenesin 100 mg/5 5 ml PO Q6H PRN cough #120 mL 05/30/23 06/26/23 mL oral liquid (Guaifenesin AC) prednisone 20 mg tablet See Rx Instructions PO DAILY #11 05/30/23 06/26/23 tabs lisinopril 10 mg tablet 10 mg PO DAILY #90 tabs 06/21/23 06/26/23 Previous Rx's Medication Instructions Recorded mupirocin 2 % topical ointment 1 applic topical BID #30 grams 07/29/19 blood sugar diagnostic (Blood #100 strips 10/17/19 Glucose Test strips) lancets 28 gauge #100 ea 10/17/19 blood-glucose meter,continuous #1 ea 01/24/22 (Dexcom G6 Quality Inspector) blood-glucose sensor (Dexcom G6 #3 ea 01/24/22 Sensor device) blood-glucose transmitter (Dexcom #1 ea 01/24/22 G6 Transmitter device) inhalational spacing device #1 ea 01/26/22 (Aerochamber MV spacer) insulin detemir U-100 100 unit/mL 35 unit (0.35 mL) subcut BID E11.9 03/29/22 (3 mL) subcutaneous pen (Levemir #45 mL FlexTouch U-100 Insulin) pen needle, diabetic 31 gauge x #360 ea 07/13/2206/09 (BD Ultra-Fine Mini Pen Needle) insulin aspart U-100 100 unit/mL 8 unit (0.08 mL) subcut TID E11.9 11/19/22 (3 mL) subcutaneous pen (Novolog #30 mL FlexPen U-100 Insulin aspart) pantoprazole 40 mg tablet,delayed 40 mg PO DAILY #90 tabs 11/29/22 release (Protonix) albuterol sulfate 90 mcg/actuation 2 puff inhalation Q6H PRN 02/13/23 aerosol inhaler (Proventil HFA) shortness of breath or wheezing #8.5 grams sertraline 100 mg tablet (Zoloft) 50 mg (1/2 x 100 mg) PO HS #45 tabs 04/03/23 albuterol sulfate 90 mcg/actuation 2 puff inhalation Q6H PRN 05/05/23 aerosol inhaler (Proventil HFA) shortness of breath or wheezing #8.5 grams atorvastatin 20 mg tablet 20 mg PO QPM #90 tabs 05/08/23 insulin degludec 200 unit/mL (3 50 - 80 unit (0.25 - 0.4 mL) 05/08/23 mL) subcutaneous pen (Tresiba subcut DAILY #27 mL FlexTouch U-200 insulin) codeine 10 mg-guaifenesin 100 mg/5 5 ml PO Q6H PRN cough #120 mL 05/30/23 mL oral liquid (Guaifenesin AC) prednisone 20 mg tablet See Rx Instructions PO DAILY #11 05/30/23 tabs lisinopril 10 mg tablet 10 mg PO DAILY #90 tabs 06/21/23 Allergies Allergy/AdvReac Type Severity Reaction Status Date / Time atropine Allergy Intermediate RASH Verified 06/26/23 13:56 clams Allergy Intermediate Violent Verified 06/26/23 13:56 diarrhea diphenoxylate Allergy Intermediate SKIN RASH Verified 06/26/23 13:56 propoxyphene Allergy Intermediate SENSITIVITY Verified 06/26/23 13:56 General Stated Complaint: Chest Pain JEAN MARIE: 3 Review of Systems Narrative: Review of Systems Constitutional: negative Eyes: negative ENT: negative Cardiovascular: Chest pain Respiratory: negative Gastrointestinal: negative : negative Musculoskeletal: negative Skin: negative Neurologic: negative Psych: negative Exam Narrative Exam Narrative: Physical Examination General: alert, awake, cooperative, resting comfortably, no acute distress HEENT: normocephalic, atraumatic; PERRL, EOM intact, conjunctiva normal Neck: supple, trachea midline; full ROM Chest: normal to inspection Respiratory: normal respiratory effort, speaking in full sentences, clear to auscultation, no wheezing, rales or rhonchi Cardiac: regular rate, regular rhythm, S1S2 intact, murmur consistent with valve replacement GI: abdomen soft, non-tender, non-distended; no palpable mass or hepatosplenomegaly Skin: no lesions, rashes or trauma appreciated Neuro: AAOx3, normal speech, moving all extremities Extremities: Full extension of bilateral hips, ambulatory without assistance, no ecchymosis crepitus or deformity, soft compartments, warm well-perfused sensate limbs bilaterally Psych: Appropriate mood and affect Course Vital Signs Vital signs: Vital Signs Pulse 76 06/26/23 14:48 Respiratory Rate 18 06/26/23 14:48 Pulse Oximetry 100 06/26/23 14:48 Temperature 36.8 C 06/26/23 14:55 Pulse 76 06/26/23 14:48 Respiratory Rate 18 06/26/23 14:48 Respiratory Effort Normal 06/26/23 14:51 Blood Pressure 158/48 H 06/26/23 14:55 Pulse Oximetry 100 06/26/23 14:48 Medical Decision Making 77-year-old female presents with substernal chest discomfort over the last 3 days made worse with movement of her upper body and arms as well as breathing, improved with rest. Nonradiating no associated nausea vomiting diaphoresis or shortness of breath. No history of thromboembolic disease or coronary disease. Patient does have history of aortic stenosis with aortic valve replacement and B-cell lymphoma as well as diabetes. Patient is afebrile nontoxic no respiratory distress no hypoxia no tachycardia. EKG normal sinus rhythm normal axis normal intervals nonischemic. Patient fell directly on her right hip 3 days ago pain to proximal third of her right femur, full range of motion soft compartments warm well-perfused neurovascularly intact limbs ambulatory without assistance. Low suspicion for hip fracture or dislocation. High clinical suspicion for musculoskeletal discomfort of chest wall in the setting of recent fall muscles consider costochondritis versus pleurisy lower suspicion for ACS PE or aortic pathology lower suspicion for pneumothorax. Trial of analgesia/anti- inflammatory. Screening chest x-ray given patient's age and history will also obtain basic labs and troponin. Patient received cardiac dose aspirin before arrival as well as nitro. Discomfort not improved with nitro. Sitting still and not moving upper extremity/torso improves discomfort. 16: 12 patient resting comfortably feeling much better after anti-inflammatory. Hemodynamically stable no respiratory symptoms. X-ray of femur and chest negative. High clinical suspicion for musculoskeletal chest discomfort. 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 Patricia Espinoza [facility] [phone] Radiation Oncologist- Dr. 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, bilateral (Chronic 01/13/14) Right lumbar radiculopathy (Chronic 05/26/14) pseudospondylolistheis degenerative changes Essential hypertension (Chronic 02/22/13) Diverticulosis of colon without diverticulitis (Chronic 04/12/13) Diabetes mellitus (Chronic 07/30/13) new DM 08/07 Depressive disorder (Chronic) Medical History Hair follicle infection Aortic stenosis Actinic keratoses Knee pain, bilateral VIERA (dyspnea on exertion) SOB (shortness of breath) on exertion Brain aneurysm repaired 05/2019 Low iron stores Anemia UTI (urinary tract infection) Incidental pulmonary nodule, > 3mm and < 8mm Aortic valve calcification Acute meniscal tear, lateral (08/08/07) Chondromalacia (08/08/07) Closed fracture of humerus (08/23/12) Closed fracture of skull (02/23/91) Plantar fasciitis Sciatica Plantar fasciitis Sciatica Closed fracture of skull 02/23/91 Acute meniscal tear of right knee 08/08/07 Seen by Eder Bee MD [facility], 07/23/07 Chondromalacia, right knee 08/08/07 Seen by Eder Bee MD [facility], 07/23/07 Closed fracture of humerus 08/23/12 URI, acute (12/25/14) Right hip pain (11/24/16) RLQ fullness (08/23/12) Hemorrhoids (04/12/13) Heart murmur systolic murmur, 1+ mitral regurge, 1+ tricuspid regurge Seasonal allergic rhinitis Essential hypertension Surgical History History of esophagogastroduodenoscopy (EGD) (~07/2020) History of colonoscopy (~07/2020) Status post Mohs surgery (~03/12/19) [facility] History of shoulder surgery Status post laparoscopic hysterectomy Status post total knee replacement S/P laparoscopic hysterectomy 03/27/85 ovaries remain S/p total knee replacement, bilateral 03/27/09 H/O shoulder surgery 05/26/11 , Ectopic 1972 & 1975 PROCEDURES RIGHT SHOULDER SURGERY 06/05 Skull fracture 1991 Hysterectomy, Laproscopic (~1985) HAS OVARIES Family History Mother , OLD AGE at age 89. Alcohol abuse Asthma Father , MRSA at age 89. Personal history of malignant neoplasm PROSTATE/LYMPHOMA MRSA infection Sister Diabetes Essential hypertension Depression Heart disease Hyperlipidemia Brother Substance abuse Alcohol abuse Personal history of malignant neoplasm SQUAMOUS CARCINOMA Asthma Brother Personal history of malignant neoplasm PROSTATE Grandmother Personal history of malignant neoplasm FAMILY HISTORY Glaucoma Daughter Asthma Social History Smoking/Tobacco Use Status: Former Tobacco Use tobacco type: cigarettes Quit Date: 03/27/72 Pack-years: 9 Tobacco: How many years used: 9 Smoking risk assessment performed?: Yes Alcohol Intake: current Alcohol Intake frequency: a few times a month Alcohol type: beer and wine Drug use: Never Substance use type: does not use Caregiver/Support person: No Household members: none Housing: house Communication Needs: Hard of Hearing Do you need help understanding health information?: Never current occupation: retired teacher Pets and animals: Yes Pets and animals: cat(s) Sexually active: No Do you think of yourself as: straight/heterosexual Current gender identity: female What is your relationship status?: How often do you talk on the phone with friends or family?: three or more times per week How often do you get together with friends or relatives?: twice per week How often do you attend worship or mosque services?: decline to answer Do you belong to any clubs or organized social groups?: yes Panel score (0-1 are the most socially isolated patients): 2 What type of physical activity do you participate in: walking and swimming Duration: 30-45 minutes/day Frequency: 5-6 times per week Gavi/Buddhist: None Special gavi needs: No Seatbelt use: always Helmet use: Yes Helmet use: always Drive intox or ride w/intox recycling collections driver: No Do you feel safe at home: Yes Additional Social history: lives alone
[2023-06-26 15:15] LABS: HCT 33.1 % (36.0-46.0); HGB 10.3 g/dL (11.2-15.7); MCH 27.2 pg (27.0-33.0); MCHC 31.1 % (32.0-36.0); MCV 88 fL (80-95); MPV 10.1 fL (8.0-11.0); Platelet Count 297 10^3/uL (130-400); RBC 3.78 10^6/uL (3.93-5.22); RDW 15.7 % (11.7-14.6); RDW-SD 50.2 fL; WBC 9.98 10^3/uL (4.4-10.8)
[2023-06-26] MEDS: Ketorolac 15 MG/ML VIAL IVP (15:22)
[2023-06-26 15:23] LABS: Absolute Neutrophil Count 6.79 10^3/uL (1.2-6.7); Atypical Lymphocytes % 2; Bands % 1; Diff Comment Manual Differential; RBC Morphology Normal
[2023-06-26 15:28] LABS: INR 1.2 (0.9-1.1); PTT Activated 25.8 sec (23.6-32.8); Prothrombin Time 11.6 sec (9.1-11.1)
[2023-06-26 15:30] LABS: ALT 18 U/L (14-59); AST 18 U/L (15-37); Alkaline Phosphatase 71 U/L (46-116); Anion Gap 9.8 mmol/L (3-11); BUN 18 mg/dL (7-18); Bilirubin, Total 0.4 mg/dL (0.2-1.0); CO2 27.2 mmol/L (21.0-32.0); CREATININE 0.8 mg/dL (0.55-1.02); Calcium 8.8 mg/dL (8.5-10.1); Chloride 106 mmol/L (98-107); Estimated GFR 75.37 (mL/min/1.73m2); Glucose 59 mg/dL (74-106); Potassium 3.5 mmol/L (3.5-5.1); Sodium 143 mmol/L (136-145); Total Protein 8.5 g/dL (6.4-8.2); Troponin I < 50 ng/L (< or =60)
[2023-06-26 15:35] LABS: NT-proBNP 607 pg/mL (<300)
--- NOTE | 2023-06-26 15:44 | DI.RAD_ITS ---
Exam(s) XR FEMUR RT EXAM: XR FEMUR RT CLINICAL HISTORY: pain to prox third femur, fall skiing 3 days ago. TECHNIQUE: 2D digital imaging was performed of the right femur. Five images were obtained. AP and l ateral views were obtained. COMPARISON: No exams were available for comparison FINDINGS: BONES: No acute fracture is present. No bony destructive lesion is seen. The patient has a right tota l knee replacement which is incompletely imaged. SOFT TISSUE: Vascular calcifications are present. IMPRESSION: No acute fracture or dislocation. DATA REPOSITORY: RADIATION DOSE DELIVERED:
--- NOTE | 2023-06-26 15:44 | DI.RAD_ITS ---
Exam(s) XR CHEST 2V PA LATERAL EXAM: XR CHEST 2V PA LATERAL CLINICAL HISTORY: chest pain, post ski fall, sternal TECHNIQUE: 2D digital imaging was performed of the chest. Two images were obtained. PA and lateral views were obtained. COMPARISON: CR XR CHEST 2V PA LATERAL from 05/30/2023 FINDINGS: MEDIASTINUM: Normal. There is no widening of the mediastinum. HEART: There is an aortic valve prosthesis. There is mitral calcification present. PULMONARY VASCULATURE: Normal. LUNGS: Clear. PLEURAL SPACE: No pleural effusion or pneumothorax. BONE:Within normal limits for the patient's age. Sideplate and screws are again seen in the proximal right humerus. OTHER FINDINGS:Normal. IMPRESSION: No acute pulmonary findings. DATA REPOSITORY: RADIATION DOSE DELIVERED:
== END 2023-06-26 16:19 | disposition home or self-care (01) ==
PROVIDERS: Emergency Provider Emergency Medicine; PCP Family Medicine
DX: R07.9 Chest pain, unspecified (principal); R01.1 Cardiac murmur, unspecified; I10 Essential (primary) hypertension; E11.9 Type 2 diabetes mellitus without complications; C85.10 Unspecified B-cell lymphoma, unspecified site; Z95.2 Presence of prosthetic heart valve; Z79.82 Long term (current) use of aspirin; Z79.4 Long term (current) use of insulin; Z87.891 Personal history of nicotine dependence
CPT/HCPCS: 36415; 73552; 80053; 93005; 96374; 99284; 71046; 83880; 84484; 85025; 85610; 85730; 93010; J1885

== ENCOUNTER 2023-08-18 02:25 | Outpatient (CLI) | payer MEDICARE, BC, SELFPAY ==
[2023-08-18 13:02] LABS: HCT 34.9 % (36.0-46.0); HGB 10.8 g/dL (11.2-15.7); MCH 27.5 pg (27.0-33.0); MCHC 30.9 % (32.0-36.0); MCV 89 fL (80-95); MPV 10.8 fL (8.0-11.0); Platelet Count 364 10^3/uL (130-400); RBC 3.93 10^6/uL (3.93-5.22); RDW 15.5 % (11.7-14.6); RDW-SD 50.4 fL; WBC 9.54 10^3/uL (4.4-10.8)
[2023-08-18 13:15] LABS: Iron 37 ug/dL (50-170)
[2023-08-18 13:23] LABS: ALT 11 U/L (14-59); AST 9 U/L (15-37); Albumin 3.3 g/dL (3.4-5.0); Alkaline Phosphatase 68 U/L (46-116); Anion Gap 8.3 mmol/L (3-11); BUN 19 mg/dL (7-18); Bilirubin, Total 0.4 mg/dL (0.2-1.0); CO2 26.7 mmol/L (21.0-32.0); CREATININE 0.8 mg/dL (0.55-1.02); Calcium 9.2 mg/dL (8.5-10.1); Chloride 107 mmol/L (98-107); Estimated GFR 75.37 (mL/min/1.73m2); Ferritin 516 ng/mL (8-252); Glucose 90 mg/dL (74-106); Potassium 4.3 mmol/L (3.5-5.1); Sodium 142 mmol/L (136-145); Total Protein 9.1 g/dL (6.4-8.2)
[2023-08-18 19:03] LABS: Lab Add On Test DONE
[2023-08-22 14:44] LABS: Albumin g/dL 3.7 g/dL (3.6-5.2); Comment (See Note); Monoclonal Spike 18.3 % (None Seen); Monoclonal Spike g/dL 1.6 g/dL (None Seen); Total Protein 8.6 g/dL (6.3-8.2)
[2023-08-22 16:30] LABS: Immunotyping, Serum (See Note)
== END 2023-08-18 02:26 | disposition home or self-care (01) ==
LOC: LOS 02:26
PROVIDERS: PCP Family Medicine; Visit Provider Family Medicine
DX: D64.9 Anemia, unspecified (principal); I10 Essential (primary) hypertension; R77.8 Other specified abnormalities of plasma proteins; D50.8 Other iron deficiency anemias; R79.89 Other specified abnormal findings of blood chemistry
CPT/HCPCS: 36415; 80053; 85027; 82728; 83540; 84165; 86320

== ENCOUNTER → 2023-10-30 02:15 | Outpatient (CLI) | payer MEDICARE, BC, SELFPAY ==
--- NOTE | 2023-10-30 13:30 | DI.US_ITS ---
APPROVED REPORT EXAM: Comprehensive 2D, Doppler, and color-flow Echocardiogram Patient Location: Out-Patient Production Supervisor Off Shift: Bry Stahl RDCS (AE) Indications: Aortic stenosis, s/p TAVR Conclusion Normal left ventricular wall thickness and chamber size. Ejection fraction is 70%. Left ventricle i s hyperdynamic Normal right ventricular size and function Both atria are mildly dilated Patient is status post transcatheter aortic valve replacement. Mean valve gradient is 28 mmHg. Ther e is no aortic regurgitation Mitral annular calcification, mild mitral regurgitation Moderate tricuspid regurgitation. Estimated right ventricular systolic pressure is 45 mmHg Wall motion Left Ventricle The left ventricle is normal size. The left ventricular systolic function is normal. The left ventric ular ejection fraction is within the normal range. There is normal left ventricular wall thickness. T here is normal LV segmental wall motion. There is no ventricular septal defect visualized. LVEF is 70 %. Right Ventricle The right ventricle is normal size. The right ventricular systolic function is normal. Atria Left atrium is mildly dilated. Right atrium is mildly dilated. The interatrial septum is intact with no evidence for an atrial septal defect. Aortic Valve Patient is s/p TAVR. Mean gradient is 28 mmHg No aortic regurgitation is present. Mitral Valve Moderate mitral annular calcification. No evidence of mitral valve stenosis. Mild mitral regurgitatio n. Tricuspid Valve The tricuspid valve is normal in structure. There is no tricuspid valve stenosis. Moderate tricuspid regurgitation. The RVSP is 45.4 mmHg. Pulmonic Valve The pulmonary valve is normal in structure. There is no pulmonic valvular stenosis. There is no pulmo sung valvular regurgitation. Great Vessels The aortic root is normal in size. The ascending aorta is normal Aortic arch is normal in caliber. IV C is normal in size and collapses >50% with inspiration. Pericardium There is no pericardial effusion. 2D Dimensions IVSD d PLAX 0.88 cm F: 0.6-1.0 Ao Root d 1.88 cm F: 2.7 - 3.3 LVPW d PLAX 0.95 cm F: 0.6 - 1.0 Ao Asc Diam d 3.20 cm F: 2.3 - 3.1 LVID d PLAX 4.82 cm F: 3.8 - 5.2 LVDs 2.90 cm F: 2.2 - 3.5 LV EF Teichholz 70.4 % FS 39.88 % LV EDV (Teich) 108.4 mL LV ESV (Teich) 32.1 mL Stroke Vol Index (Teich) 46.24 M-Mode TAPSE 2.06 cm (M/F) >1.7 Auto EF LV EDV A4C 87.6 mL LV EDV A2C 78.1 mL LV EDV BP 84.5 mL LV ESV A4C 26.6 mL LV ESV A2C 23.3 mL LV ESV BP 24.7 mL LVEF(%) A4C 69.6 % LVEF(%) A2C 70.2 % LVEF(%) BP 70.7 % LV SV A4C 61.0 ml LV SV A2C 54.8 ml LV SV BP 59.8 ml LV CO A4C 4.0 L/min LV CO A2C 3.3 L/min LV CO BP 3.7 L/min HR A4C 66.40 BPM HR A2C 60.91 BPM LV EDV Index (BP) LA Volume LA Length A4C 4.2 cm LA Length A2C 5.3 cm LA Area A4C s 14.64 cm2 LA Area A2C s 15.65 cm2 LA Vol A4C A-L 43.76 mL LA Vol A2C A-L 39.42 mL LA Vol Biplane A-L 46.8 mL LA Vol/BSA A4C A-L LA Vol/BSA A2C A-L LA Vol/BSA BP A-L 28.3 mL/m2 LA Vol A4C MOD 40.6 mL LA Vol A2C MOD 37.1 mL LA Vol BP MOD 43.4 mL RA Volume RA Area A4C 17.5 cm2 RA ESV A4C (A-L) 53.0mL RA Vol/BSA A4C A-L RA Length A4C 4.9 cm RA ESV A4C (MOD) 48.5mL LV Diastology MV E' medial 0.072 (>0.07 m/s) MV E Vmax 1.26 (0.4-1.3 m/s) MV E/E' MED 17.66 (<14) MV A Vmax 1.25 (0.4-1.3 m/s) MV E' lateral 0.087 (>0.1 m/s) E/A Ratio 1.0 MV E/E' LAT 14.53 (<14) MV E' Average 0.079 m/s MV E/E'(average) 15.94 Aortic Valve AoV Vmax 3.39 m/s LVOT Vmax 1.70 m/s AoV Peak Grad 45.8 mmHg LVOT Peak Grad 11.6 mmHg AoV Area (Vmax) 0.99 cm2 LVOT VTI 0.422 m AoV VTI 0.714 m LVOT Mean Grad 6.0 mmHg AoV Mean [place]. 2.54 m/s LVOT SV 82.90 mL AoV Mean Grad 28.6 mmHg LVOT Diam s 1.55 cm AoV Area (VTI) 1.16 cm2 AV Regurg Peak Gr. 45.84 mmHg Velocity Ratio 0.50 Mitral Valve MV DT 225 (160-240 msec) MV Vmax TIPS 1.59 m/s MV Mean Grad 4.2 (<2mmHg) MV VTI 0.528 m Pulmonary Valve PV Vmax 1.22 (0.5-1.5 m/s) RVOT Vmax 0.93 m/s PV Peak Grad 6.0 mmHg RVOT Peak Gr. 3.5 mmHg PV Mean [place] 0.80 m/s RVOT VTI 0.171 m PV Mean Grad 3.0 mmHg RVOT Mean Gr. 2.2 mmHg Tricuspid Valve RA Pressure 3.00 mmHg TR Vmax 3.26 m/s TR Peak Grad 42.4 mmHg RVSP (TR) 45.4 mmHg
== END ==
PROVIDERS: PCP Family Medicine; Visit Provider Internal Medicine Interventional Cardiology
DX: I35.0 Nonrheumatic aortic (valve) stenosis (principal)
CPT/HCPCS: 93306

== ENCOUNTER 2023-12-25 03:29 | Outpatient (CLI) | payer MEDICARE, BC, SELFPAY ==
[2023-12-25 12:38] LABS: ALT 8 U/L (14-59); AST 8 U/L (15-37); Alkaline Phosphatase 71 U/L (46-116); Anion Gap 6.7 mmol/L (3-11); BUN 20 mg/dL (7-18); Bilirubin, Total 0.39 mg/dL (0.2-1.0); CO2 28.3 mmol/L (21.0-32.0); CREATININE 0.9 mg/dL (0.55-1.02); Calcium 9.2 mg/dL (8.5-10.1); Chloride 105 mmol/L (98-107); Estimated GFR 65.03 (mL/min/1.73m2); Glucose 151 mg/dL (74-106); Potassium 3.9 mmol/L (3.5-5.1); Sodium 140 mmol/L (136-145); TSH (W/Ref FT4) 4.51 uIU/mL (0.36-3.74); Total Protein 8.7 g/dL (6.4-8.2)
[2023-12-25 13:00] LABS: Hemoglobin A1C 6.4 % (<5.7)
[2023-12-25 13:06] LABS: FREE T4 0.87 ng/dL (0.76-1.46)
== END 2023-12-25 03:30 | disposition home or self-care (01) ==
LOC: LOS 03:29
PROVIDERS: PCP Family Medicine; Visit Provider Family Medicine
DX: E11.9 Type 2 diabetes mellitus without complications (principal); E03.9 Hypothyroidism, unspecified; I10 Essential (primary) hypertension
CPT/HCPCS: 36415; 80053; 83036; 84439; 84443

== ENCOUNTER 2024-01-26 01:01 | Outpatient (CLI) | payer MEDICARE, BC, SELFPAY ==
--- NOTE | 2024-01-26 | DI.CT_ITS ---
Exam(s) CT NECK W EXAM: CT NECK W INDICATION: F/U LYMPHOMA,C83.00,HIGH SERUM,R76.8.ANEMIA,D64.9. COMPARISON: CT CT NECK W from 07/30/2020 TECHNIQUE: FINDINGS: VISUALIZED PARANASAL SINUSES: Unremarkable. NASOPHARYNX: Unremarkable ORODENTAL: Unremarkable. OROPHARYNX: Unremarkable. No masses evident. HYPOPHARYNX: Unremarkable. Valleculae and epiglottis and aryepiglottic folds appear normal. VOCAL CORDS: Unremarkable. No masses evident. Subglottic airway appears unremarkable. THYROID GLAND: Unremarkable. Normal size and no obvious nodules. SALIVARY GLANDS: Unremarkable. No significant findings in the parotid and submandibular glands. LYMPH NODES: There is no significant lymphadenopathy evident in the neck and supraclavicular regions. VISUALIZED LUNG APICES: There is an unchanged 7 x 4 mm nodular infiltrate in the sub apical aspect of the left upper lobe which is unchanged from the 2020 study. OTHER: Right humeral hardware again noted. Beam hardening artifact in the brain from either clip or interventional placed material at the level of the anterior communicating artery again noted. IMPRESSION: 1. Stable appearance of the soft tissue neck CT scan, unchanged from prior CT scan of July 2020. The re are no new masses nor lymphadenopathy in the neck and supraclavicular regions. 2. Continued stable unchanged appearance of previously described 7 x 4 mm nodular infiltrate in the left upper lobe. 3. 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 RADIATION DOSE DELIVERED: 207.65mGy.cm Total DLP DATA REPOSITORY: All CT scans at this facility are submitted to the National Radiology Data Registry (NRDR) Dose Index Registry (DIR) with the [employer] ([employer]). RADIATION OPTIMIZATION: All CT scans at this facility use at least one of these dose optimization te chniques: automated exposure control; mA and/or kV adjustment per patient size (includes targeted exa ms where dose is matched to clinical indication); or iterative reconstruction.
[2024-01-26] MEDS: Normal Saline - Diluent 50 ML VIAL IJ (09:42)
[2024-01-26] MEDS: Omnipaque 350 MG/ML 100 ML BTL IJ (09:43)
== END 2024-01-26 01:21 ==
LOC: DI 01:03
PROVIDERS: PCP Family Medicine; Visit Provider Internal Medicine Hematology
DX: R91.8 Other nonspecific abnormal finding of lung field (principal); C85.15 Unspecified B-cell lymphoma, lymph nodes of inguinal region and lower limb; R76.8 Other specified abnormal immunological findings in serum
CPT/HCPCS: 70491; J3490

== ENCOUNTER 2024-03-01 14:52 | Outpatient (CLI) | payer MEDICARE, BC, SELFPAY ==
--- NOTE | 2024-03-01 09:00 | DI.RAD_ITS ---
Exam(s) XR CHEST 2V PA LATERAL EXAM: XR CHEST 2V PA LATERAL CLINICAL HISTORY: R06.02 sob TECHNIQUE: 2D digital imaging was performed. Two views. COMPARISON: No exams were available for comparison FINDINGS: HEART: Normal size. Mitral annular calcification. Is Aorta: Not dilated. Aortic valve prosthesis. PULMONARY VASCULATURE: Normal. MEDIASTINUM: Unremarkable. LUNGS: Clear. PLEURAL SPACE: No pleural effusion or pneumothorax. BONE:Hardware right proximal humerus. SOFT TISSUES: Unremarkable. IMPRESSION: No acute abnormality. DATA REPOSITORY: RADIATION DOSE DELIVERED:
== END 2024-03-01 15:12 ==
LOC: DI 14:53
PROVIDERS: PCP Family Medicine; Visit Provider Family Medicine
DX: R06.02 Shortness of breath (principal)
CPT/HCPCS: 71046

== ENCOUNTER 2024-03-08 01:00 | Outpatient (CLI) | payer MEDICARE, BC, SELFPAY ==
--- NOTE | 2024-03-08 07:30 | DI.CT_ITS ---
Exam(s) CT CHEST W EXAM: CT CHEST W CLINICAL HISTORY: sob,PULMONARY HYPERTENSION,I27.20,R06.02 TECHNIQUE: Imaging Protocol: Axial computed tomography images with coronal and sagittal reformatted images were created and reviewed. Computer aided detection (CAD) was utilized. CONTRAST MATERIAL: Intravenous: Omnipaque 350 Contrast volume:70 ml. COMPARISON: CT CT CHEST ABDOMEN PELVIS W CONTRAST (GENERIC) from 06/12/2023 CR XR CHEST 2V PA LATERAL from 03/01/2024 FINDINGS: Pulmonary parenchyma: No consolidation. stable 7 millimeter nodule in the left upper lobe. No signi ficant emphysematous changes or interstitial changes. Tracheobronchial tree: No bronchiectasis or mucous plugging. Mediastinum and Agatha: No dominant adenopathy or fluid collection. Pleura: No effusion. No pneumothorax. Heart: The heart is mildly dilated. Severe coronary artery calcifications are seen. Mitral annular calcifications. Aorta: Thoracic aorta non-dilated. TAVR. Mild to moderate atherosclerotic changes. Pulmonary arteries: No gross evidence of emboli. Normal diameter pulmonary arteries. Upper abdomen: Para-aortic adenopathy. Bones: Degenerative changes in the spine. Hardware right proximal humerus. Soft tissues: Small bilateral axillary lymph nodes, not definitely pathologically enlarged. IMPRESSION: No acute abnormality. RADIATION DOSE DELIVERED: Total DLP DATA REPOSITORY: All CT scans at this facility are submitted to the National Radiology Data Registry (NRDR) Dose Index Registry (DIR) with the [employer] ([employer]). RADIATION OPTIMIZATION: All CT scans at this facility use at least one of these dose optimization te chniques: automated exposure control; mA and/or kV adjustment per patient size (includes targeted exa ms where dose is matched to clinical indication); or iterative reconstruction.
[2024-03-08 10:57] LABS: HCT 31.8 % (36.0-46.0); HGB 9.8 g/dL (11.2-15.7); MCH 26.1 pg (27.0-33.0); MCHC 30.8 % (32.0-36.0); MCV 85 fL (80-95); MPV 10.4 fL (8.0-11.0); Platelet Count 336 10^3/uL (130-400); RBC 3.75 10^6/uL (3.93-5.22); RDW 15.9 % (11.7-14.6); RDW-SD 50.1 fL; WBC 8.63 10^3/uL (4.4-10.8)
[2024-03-08 11:19] LABS: ALT 11 U/L (14-59); AST 9 U/L (15-37); Albumin 2.9 g/dL (3.4-5.0); Alkaline Phosphatase 69 U/L (46-116); BUN 19 mg/dL (7-18); Bilirubin, Total 0.38 mg/dL (0.2-1.0); CREATININE 0.9 mg/dL (0.55-1.02); Calcium 8.8 mg/dL (8.5-10.1); Chloride 107 mmol/L (98-107); Estimated GFR 65.03 (mL/min/1.73m2); Glucose 102 mg/dL (74-106); Potassium 4.1 mmol/L (3.5-5.1); Sodium 142 mmol/L (136-145); Total Protein 8.8 g/dL (6.4-8.2)
[2024-03-08] MEDS: Normal Saline - Diluent 50 ML VIAL IJ (11:33)
[2024-03-08] MEDS: Omnipaque 350 MG/ML 100 ML BTL 70 ML IJ (11:34)
== END 2024-03-08 01:20 ==
LOC: DI 01:01
PROVIDERS: PCP Family Medicine; Visit Provider Family Medicine
DX: R06.02 Shortness of breath (principal); I27.20 Pulmonary hypertension, unspecified
CPT/HCPCS: 80053; 85027; 71260; J3490

== ENCOUNTER 2024-03-14 03:20 | Outpatient (CLI) | payer MEDICARE, BC, SELFPAY ==
[2024-03-14] MEDS: Inhaler, Assist Device 1 EACH MC (11:26)
[2024-03-14] MEDS: Levalbuterol HFA 15 GM INH 4 PUFF IH (11:27)
--- NOTE | 2024-03-15 15:24 | W.PFT ---
Date of service: 03/14/24 Time of Service: 10:05 Pulmonary Function Test Result Indications: Reactive airways disease Interpretation Spirometry: No airflow limitation. No bronchodilator response. Lung Volumes: There is air trapping Diffusion Capacity: Normal diffusion Airway Pressure: Normal airways resistance Impression Air trapping is present without airflow obstruction. Clinical Correlation therefore is recommended.
== END 2024-03-14 03:21 | disposition home or self-care (01) ==
LOC: RT 03:20
PROVIDERS: PCP Family Medicine; Visit Provider Family Medicine
DX: J45.909 Unspecified asthma, uncomplicated (principal)
CPT/HCPCS: 94060; 94726; 94729

== ENCOUNTER → 2024-04-09 11:04 | Outpatient (BNVA) | payer MEDICARE, BC, SELFPAY | PROVIDERS: PCP Family Medicine; Referring Provider Family Medicine; Visit Provider Physician Assistant Surgical | DX: R91.1 Solitary pulmonary nodule (principal); G47.33 Obstructive sleep apnea (adult) (pediatric) | CPT/HCPCS: 36415; 94618; 99215 ==

== ENCOUNTER 2024-04-09 16:35 | Outpatient (REF) | payer MEDICARE, BC, SELFPAY ==
[2024-04-09 14:15] LABS: Iron 36 ug/dL (50-170)
[2024-04-09 14:20] LABS: NT-proBNP 560 pg/mL (<300)
[2024-04-09 14:27] LABS: ALT 12 U/L (14-59); AST 12 U/L (15-37); Albumin 3.1 g/dL (3.4-5.0); Alkaline Phosphatase 68 U/L (46-116); Anion Gap 11.3 mmol/L (3-11); BUN 23 mg/dL (7-18); CO2 24.7 mmol/L (21.0-32.0); CREATININE 0.9 mg/dL (0.55-1.02); Calcium 9.3 mg/dL (8.5-10.1); Chloride 105 mmol/L (98-107); Estimated GFR 65.03 (mL/min/1.73m2); Ferritin 380 ng/mL (8-252); Glucose 85 mg/dL (74-106); Potassium 4.6 mmol/L (3.5-5.1); Sodium 141 mmol/L (136-145); Total Protein 8.5 g/dL (6.4-8.2)
== END 2024-04-09 16:36 | disposition home or self-care (01) ==
LOC: LBN 16:35
PROVIDERS: PCP Family Medicine; Visit Provider Physician Assistant Surgical
DX: D50.8 Other iron deficiency anemias (principal); I50.9 Heart failure, unspecified
CPT/HCPCS: 80053; 82728; 83540; 83880

== ENCOUNTER 2024-04-10 07:14 | Outpatient (CLI) | payer MEDICARE, BC, SELFPAY | END 2024-04-10 07:15 | disposition home or self-care (01) | LOC: RT 07:15 | PROVIDERS: PCP Family Medicine; Visit Provider Student in an Organized Health Care Education/Training Program | DX: G47.33 Obstructive sleep apnea (adult) (pediatric) (principal) | CPT/HCPCS: 94762 ==

== ENCOUNTER → 2024-05-08 10:47 | Outpatient (BNVA) | payer MEDICARE, BC, SELFPAY | PROVIDERS: PCP Family Medicine; Referring Provider Family Medicine; Visit Provider Physician Assistant Surgical | DX: R91.1 Solitary pulmonary nodule (principal); G47.33 Obstructive sleep apnea (adult) (pediatric); J45.909 Unspecified asthma, uncomplicated | CPT/HCPCS: 99214 ==

== ENCOUNTER 2024-05-10 00:54 | Outpatient (CLI) | payer MEDICARE, BC, SELFPAY ==
[2024-05-10 12:45] LABS: Iron 37 ug/dL (50-170)
[2024-05-10 12:48] LABS: HCT 32.6 % (36.0-46.0); HGB 9.9 g/dL (11.2-15.7); MCH 25.8 pg (27.0-33.0); MCHC 30.4 % (32.0-36.0); MCV 85 fL (80-95); MPV 10.5 fL (8.0-11.0); Platelet Count 313 10^3/uL (130-400); RBC 3.83 10^6/uL (3.93-5.22); RDW 15.9 % (11.7-14.6); RDW-SD 49.2 fL; WBC 8.05 10^3/uL (4.4-10.8)
[2024-05-10 12:52] LABS: Hemoglobin A1C 7.1 % (<5.7)
[2024-05-10 12:58] LABS: Ferritin 358 ng/mL (8-252)
== END 2024-05-10 00:55 | disposition home or self-care (01) ==
LOC: LOS 00:54
PROVIDERS: PCP Family Medicine; Visit Provider Family Medicine
DX: D50.9 Iron deficiency anemia, unspecified (principal); E11.9 Type 2 diabetes mellitus without complications
CPT/HCPCS: 36415; 85027; 82728; 83036; 83540; 84207

== ENCOUNTER 2024-06-19 02:11 | Outpatient (RCR) | payer MEDICARE, BC, SELFPAY ==
[2024-06-05] MEDS: SODIUM FER. GLUC./SUC. 125 MG in Normal Saline 100 ML 110 MG IVPB (13:06)
[2024-06-05] MEDS: Normal Saline Flush 5 ML SYR IVP (13:06)
[2024-06-12] MEDS: SODIUM FER. GLUC./SUC. 125 MG in Normal Saline 100 ML 110 MG IVPB (13:07)
[2024-06-12] MEDS: Normal Saline Flush 5 ML SYR IVP (13:07)
[2024-06-19] MEDS: Normal Saline Flush 5 ML SYR IVP (13:18)
[2024-06-19] MEDS: SODIUM FER. GLUC./SUC. 125 MG in Normal Saline 100 ML 110 MG IVPB (13:18)
== END 2024-06-24 23:59 | disposition home or self-care (01) ==
LOC: INF 02:11
PROVIDERS: PCP Family Medicine; Visit Provider Family Medicine
DX: D50.9 Iron deficiency anemia, unspecified (principal)
CPT/HCPCS: 96365; J2916

== ENCOUNTER 2024-06-26 02:36 | Outpatient (RCR) | payer MEDICARE, BC, SELFPAY ==
[2024-06-26] MEDS: SODIUM FER. GLUC./SUC. 125 MG in Normal Saline 100 ML 110 MG IVPB (13:17)
[2024-06-26] MEDS: Normal Saline Flush 5 ML SYR IVP (13:17)
== END 2024-07-24 23:59 | disposition home or self-care (01) ==
LOC: INF 02:36
PROVIDERS: PCP Family Medicine; Visit Provider Family Medicine
DX: D50.9 Iron deficiency anemia, unspecified (principal)
CPT/HCPCS: 96365; J2916

== ENCOUNTER 2024-08-29 03:40 | Outpatient (CLI) | payer MEDICARE, BC, SELFPAY ==
[2024-08-29 12:17] LABS: HCT 33.6 % (36.0-46.0); HGB 10.2 g/dL (11.2-15.7); MCH 26.4 pg (27.0-33.0); MCHC 30.4 % (32.0-36.0); MCV 87 fL (80-95); Platelet Count 325 10^3/uL (130-400); RBC 3.86 10^6/uL (3.93-5.22); RDW 15.8 % (11.7-14.6); RDW-SD 50.1 fL; WBC 7.42 10^3/uL (4.4-10.8)
[2024-08-29 12:33] LABS: Iron 34 ug/dL (50-170); Total Iron Binding Capacity 188 ug/dL (250-450)
[2024-08-29 12:36] LABS: Hemoglobin A1C 6.8 % (<5.7)
[2024-08-29 12:46] LABS: Ferritin 440 ng/mL (8-252); TSH (W/Ref FT4) 2.77 uIU/mL (0.36-3.74)
[2024-08-30 09:35] LABS: Transferrin 147 mg/dL (201-352)
== END 2024-08-29 03:41 | disposition home or self-care (01) ==
LOC: LOS 03:40
PROVIDERS: PCP Family Medicine; Visit Provider Family Medicine
DX: E11.9 Type 2 diabetes mellitus without complications (principal); D64.9 Anemia, unspecified; D50.9 Iron deficiency anemia, unspecified; E03.9 Hypothyroidism, unspecified
CPT/HCPCS: 36415; 85027; 82728; 83036; 83540; 83550; 84443; 84466

== ENCOUNTER 2024-09-09 18:33 | Outpatient (REF) | payer MEDICARE, BC, SELFPAY ==
[2024-09-09 21:23] LABS: COMMENT (LAB VIEW ONLY) 114.76 mg/dL; Microalb ug/mg Crea 9.1 ug/mg Cr
== END 2024-09-09 18:34 | disposition home or self-care (01) ==
LOC: LBN 18:33
PROVIDERS: PCP Family Medicine; Visit Provider Family Medicine
DX: E11.9 Type 2 diabetes mellitus without complications (principal)
CPT/HCPCS: 82043; 82570

== ENCOUNTER 2025-01-27 10:06 | Outpatient (CLI) | payer MEDICARE, BC, SELFPAY ==
[2025-01-27 13:25] LABS: Abs Immature Grans 0.16 10^3/uL (0.0-0.06); HCT 31.1 % (36.0-46.0); HGB 9.2 g/dL (11.2-15.7); Immature Grans % 1.8 %; MCH 25.0 pg (27.0-33.0); MCHC 29.6 % (32.0-36.0); MCV 85 fL (80-95); MPV 9.9 fL (8.0-11.0); Platelet Count 321 10^3/uL (130-400); RBC 3.68 10^6/uL (3.93-5.22); RDW 15.2 % (11.7-14.6); RDW-SD 47.0 fL; WBC 8.78 10^3/uL (4.4-10.8)
[2025-01-27 14:12] LABS: Iron 35 ug/dL (50-170); Total Iron Binding Capacity 191 ug/dL (250-450)
[2025-01-27 14:34] LABS: ALT 12 U/L (14-59); AST < 5 U/L (15-37); Albumin 3.0 g/dL (3.4-5.0); Alkaline Phosphatase 76 U/L (46-116); Anion Gap 9.4 mmol/L (3-11); BUN 22 mg/dL (7-18); Bilirubin, Total 0.5 mg/dL (0.2-1.0); CO2 27.6 mmol/L (21.0-32.0); Calcium 9.2 mg/dL (8.5-10.1); Chloride 103 mmol/L (98-107); Ferritin 367 ng/mL (8-252); Glucose 131 mg/dL (74-106); Potassium 4.0 mmol/L (3.5-5.1); Sodium 140 mmol/L (136-145); TSH (W/Ref FT4) 2.87 uIU/mL (0.36-3.74); Total Protein 9.3 g/dL (6.4-8.2); Vitamin B12 803 pg/mL (193-986)
[2025-01-28 10:25] LABS: Transferrin 160 mg/dL (201-352)
[2025-01-31 01:20] LABS: Pyridoxal 5-Phosphate (PLP), P 4 mcg/L (5-50)
== END 2025-01-27 10:07 | disposition home or self-care (01) ==
LOC: LBO 10:07
PROVIDERS: Physician Assistant Surgical; PCP Family Medicine; Visit Provider Family Medicine
DX: D64.9 Anemia, unspecified (principal); E03.9 Hypothyroidism, unspecified; D50.9 Iron deficiency anemia, unspecified; G62.9 Polyneuropathy, unspecified; E11.9 Type 2 diabetes mellitus without complications
CPT/HCPCS: 36415; 80053; 82607; 82728; 83540; 83550; 84207; 84443; 84466; 85025

== ENCOUNTER → 2025-02-11 08:44 | Outpatient (BNVA) | payer MEDICARE, BC, SELFPAY | PROVIDERS: PCP Family Medicine; Referring Provider Family Medicine; Visit Provider Internal Medicine Pulmonary Disease | DX: J45.40 Moderate persistent asthma, uncomplicated (principal); Z29.11 Encounter for prophylactic immunotherapy for respiratory syncytial virus (RSV); Z87.891 Personal history of nicotine dependence | CPT/HCPCS: 99214; 90471; 90679 ==

== ENCOUNTER 2025-02-21 02:02 | Outpatient (RCR) | payer MEDICARE, BC, SELFPAY ==
[2025-01-30] MEDS: Normal Saline Flush 10 ML SYR IVP (08:18)
[2025-01-30] MEDS: IRON SUCROSE COMPLEX 200 MG in Normal Saline 100 ML 440 MG IVPB (08:18)
[2025-02-07] MEDS: IRON SUCROSE COMPLEX 200 MG in Normal Saline 100 ML 440 MG IVPB (08:53)
[2025-02-07] MEDS: Normal Saline Flush 10 ML SYR IVP (08:54)
[2025-02-13] MEDS: IRON SUCROSE COMPLEX 200 MG in Normal Saline 100 ML 440 MG IVPB (08:18)
[2025-02-13] MEDS: Normal Saline Flush 10 ML SYR IVP (08:19)
[2025-02-21] MEDS: IRON SUCROSE COMPLEX 200 MG in Normal Saline 100 ML 440 MG IVPB (08:33)
[2025-02-21] MEDS: Normal Saline Flush 10 ML SYR IVP (08:33)
== END 2025-02-23 23:59 | disposition home or self-care (01) ==
LOC: INF 02:02
PROVIDERS: PCP Family Medicine; Visit Provider Family Medicine
DX: D50.9 Iron deficiency anemia, unspecified (principal)
CPT/HCPCS: 96365; J1756

== ENCOUNTER 2025-02-21 08:55 | Emergency (ER) | payer MEDICARE, BC, SELFPAY ==
[2025-02-21 08:59] VITALS: BP 176/49; PULSE 74; RESP 18; O2SAT 98
--- NOTE | 2025-02-21 09:29 | DI.RAD_ITS ---
Exam(s) XR HAND RT COMPLETE XR WRIST RT COMPL NAVICULAR EXAM: XR WRIST RT COMPL NAVICULAR CLINICAL HISTORY: R hand/wrist pain. TECHNIQUE: 2D digital imaging was performed. Three views. COMPARISON: CR XR HAND RT COMPLETE from 02/21/2025 FINDINGS: BONES: No acute fracture is present. No bony destructive lesion is seen. JOINTS: Severe degenerative changes at the 1st carpal metacarpal joint. Degenerative changes of the interphalangeal joints of the fingers and metacarpophalangeal joints. SOFT TISSUE: Vascular calcifications. IMPRESSION: Degenerative changes. No acute abnormality. DATA REPOSITORY: RADIATION DOSE DELIVERED:
--- NOTE | 2025-02-21 09:32 | W.ED.GENAD ---
Discharge Plan Disposition Patient Disposition: Home Condition: Stable Discharge Details Clinical Impression: Arthritis of right hand Primary Care Provider: Pat Pearson ED Provider: Yao Hinojosa Home Meds and New Rx's Prescriptions: No Action (DME) Blood Glucose Test Strip 1 ea Miscellaneous DAILY Qty: 100 5RF Rx Instructions: one touch ultra METER. PT DOES NOT USE INSULIN. DIAGNOSIS CODE E11.9 .test once daily (DME) lancets 28 gauge misc 1 ea Miscellaneous DAILY Qty: 100 5RF Rx Instructions: FOR ONE TOUCH ULTRA METER. NO INSULIN. DIAGNOSIS CODE E11.9. Test once daily cyanocobalamin (vitamin B-12) 1,000 mcg capsule 1,000 mcg PO DAILY (DME) Aerochamber MV Spacer See Rx Instructions .Route Qty: 1 0RF Rx Instructions: As directed aspirin 81 mg tablet,delayed release (DR/EC) 81 mg PO DAILY sertraline [Zoloft] 100 mg tablet 50 mg PO HS Qty: 45 3RF (DME) FreeStyle Virginie 3 Sensor Device See Rx Instructions .Route Rx Instructions: As directed bisacodyl [Dulcolax (bisacodyl)] 5 mg tablet,delayed release (DR/EC) 5 mg PO QHS lisinopril 10 mg tablet 10 mg PO DAILY Qty: 90 4RF melatonin 3 mg capsule 1.5 mg PO HS PRN fluticasone propion-salmeterol [Advair HFA] 230-21 mcg/actuation HFA aerosol inhaler 2 puff inhalation BID glucosam-chond ha-gkmkvx-od ac 1 EACH capsule 1 ea PO BID calcium carbonate-vitamin D3 [Os-Reji 500 + D3] 1 EACH tablet 1 ea PO BID (DME) blood-glucose meter 1 EACH misc 1 ea Miscellaneous ONCE Qty: 1 Rx Instructions: FOR ONE TOUCH ULTRA MINI GLUCOMETER Dx 250.02 Fiber Gummies (with chromium) 1 EACH tablet,chewable 1 ea PO DAILY pen needle, diabetic [TechLITE Pen Needle] 31 gauge x 3/16 needle 1 device miscellaneous QID Qty: 400 5RF (DME) pen needle, diabetic [TechLITE Pen Needle] 32 gauge x 1/4 needle See Rx Instructions .Route Qty: 400 4RF Rx Instructions: As directed four times daily; E11.9 Dispense TechLITE 31 g 5mm albuterol sulfate 90 mcg/actuation HFA aerosol inhaler 2 puff inhalation Q6H PRN (Reason: shortness of breath or wheezing) Qty: 8.5 4RF pen needle, diabetic [TechLITE Pen Needle] 31 gauge x 3/16 needle 1 device miscellaneous QID Qty: 400 3RF Rx Instructions: 1 pen needle QID E11.9 Niferex (Sumalate-Quatrefolic) 150 mg iron- 60 mg-1 mg tablet 1 tab PO BID Qty: 60 4RF atorvastatin 20 mg tablet 20 mg PO QPM Qty: 90 4RF insulin degludec [Tresiba FlexTouch U-200] 200 unit/mL (3 mL) insulin pen See Rx Instructions .ROUTE .COMPLEX Qty: 27 7RF Dose Instruction: INJECT 50-80 UNITS(0.25-0.4ML) UNDER THE SKIN DAILY Rx Instructions: INJECT 50-80 UNITS(0.25-0.4ML) UNDER THE SKIN DAILY amlodipine 5 mg tablet 5 mg PO DAILY Qty: 90 6RF insulin lispro [Humalog KwikPen Insulin] 100 unit/mL insulin pen See Rx Instructions subcut TID Qty: 30 4RF Rx Instructions: 6u am; 8u noon and pm subcutaneously three times a day; (if exercisning only take 6 u) (DME) pen needle, diabetic 31 gauge x 3/16 needle See Rx Instructions .ROUTE .MEDSUPPLY Qty: 360 7RF Rx Instructions: Five injections per day E11.9 pantoprazole [Protonix] 40 mg tablet,delayed release (DR/EC) 40 mg PO DAILY Qty: 90 4RF fluticasone furoate-vilanterol [Breo Ellipta] 200-25 mcg/dose blister with device 1 inh inhalation DAILY Qty: 180 4RF Discharge Instructions Instructions: Osteoarthritis Additional Instructions: You were seen in the emergency department for the arthritis of your right hand, there is no acute fracture or other abnormality seen on x-ray besides degenerative changes of arthritis. He endorses no trauma and possibly slept on your hand wrong which could exacerbate arthritis, please seek a referral to orthopedics from your provider, you can try ffqq-gbj-bxcnoyz Voltaren topical anti-inflammatory gel for pain relief in the meantime, please return for any emergent concerns. Stand Alone Forms: Portal Information Referrals: Pat Pearson MD, [place] [Primary Care Provider, Medicine] Discharge Data Discharge Date/Time-TO BE ENTERED AT DEPARTURE: 02/21/25 09:50 HPI General Date/Time Provider Initiated Documentation: 02/21/25 09:05. HPI Narrative: 79 year-old female presents to ED today by POV/ambulating with a chief complaint of right hand pain, patient is right-hand dominant, with onset after possibly sleeping on it wrong last night- denies trauma, sent down from [facility] for workup. Quality described as aching pain focal in the ulnar aspect, no radiation to complete numbness, tingling, bruising, endorses mild swelling, denies redness or lesion, endorses sometime the pain travels up her arm. Severity is described as moderate. Palliating factors include nothing attempted. Provoking factors include nothing specific. Patient not anticoagulated. Related Data Home Medications ?Medication ?Instructions ?Recorded ?Confirmed calcium 500 mg (as 1 ea PO BID 08/22/12 02/21/25 carbonate)-vitamin D3 15 mcg (600 unit) tablet (Os-Reji 500 + D3) pqmmxcvrky-ckqkbkuitn-ggctqwwp-hyalur 1 ea PO BID 08/22/12 02/21/25 ac 375 mg-300 mg-175 mg-2 mg cap blood-glucose meter #1 ea 07/30/13 02/21/25 inulin-chromium picolinate 2 1 ea PO DAILY 11/24/16 02/21/25 gram-100 mcg chewable tablet (Fiber Gummies (with chromium)) blood sugar diagnostic (Blood #100 strips 10/17/19 02/21/25 Glucose Test strips) lancets 28 gauge #100 ea 10/17/19 02/21/25 cyanocobalamin (vitamin B-12) 1,000 mcg PO DAILY 08/03/20 02/21/25 1,000 mcg capsule inhalational spacing device #1 ea 01/26/22 02/21/25 (Aerochamber MV spacer) aspirin 81 mg tablet,delayed 81 mg PO DAILY 12/22/22 02/21/25 release pen needle, diabetic 31 gauge x 1 device miscellaneous QID e11.9 02/07/24 02/21/25 3/16 (TechLITE Pen Needle) four times daily #400 ea pen needle, diabetic 32 gauge x #400 ea 02/07/24 02/21/25 1/ (TechLITE Pen Needle) albuterol sulfate 90 mcg/actuation 2 puff inhalation Q6H PRN 02/13/24 02/21/25 aerosol inhaler shortness of breath or wheezing #8.5 grams pen needle, diabetic 31 gauge x 1 device miscellaneous QID #400 ea 02/27/24 02/21/2506/09 (TechLITE Pen Needle) melatonin 3 mg capsule 1.5 mg PO HS PRN 04/09/24 02/21/25 iron 150 mg-vit C 60 mg-folate 1 1 tab PO BID #60 tabs 04/10/24 02/21/25 [id number]-adakvzzw-ixoecsb tablet (Niferex (Sumalate-Quatrefolic)) atorvastatin 20 mg tablet 20 mg PO QPM #90 tabs 05/13/24 02/21/25 blood-glucose sensor (FreeStyle 05/22/24 02/21/25 Virginie 3 Sensor device) lisinopril 10 mg tablet 10 mg PO DAILY #90 tabs 05/28/24 02/21/25 insulin degludec 200 unit/mL (3 See Rx Instructions .Route 09/02/24 02/21/25 mL) subcutaneous pen (Tresiba .COMPLEX #27 mL FlexTouch U-200 insulin) bisacodyl 5 mg tablet,delayed 5 mg PO QHS 09/09/24 02/21/25 release (Dulcolax (bisacodyl)) amlodipine 5 mg tablet 5 mg PO DAILY #90 tabs 09/24/24 02/21/25 Humalog KwikPen Insulin 100 See Rx Instructions subcut TID #30 11/18/24 02/21/25 unit/mL subcutaneous (insulin mL lispro) pen needle, diabetic 31 gauge x #360 ea 12/18/24 02/21/2506/09 pantoprazole 40 mg tablet,delayed 40 mg PO DAILY #90 tabs 12/23/24 02/21/25 release (Protonix) fluticasone furoate 200 1 inh inhalation DAILY #180 ea 01/23/25 02/21/25 mcg-vilanterol 25 mcg/dose inhalation powder (Breo Ellipta) sertraline 100 mg tablet (Zoloft) 50 mg (1/2 x 100 mg) PO HS #45 tabs 01/28/25 02/21/25 fluticasone propionate 230 2 puff inhalation BID 02/11/25 02/21/25 mcg-salmeterol 21 mcg/actuation HFA inhaler (Advair HFA) Previous Rx's ?Medication ?Instructions ?Recorded blood sugar diagnostic (Blood #100 strips 10/17/19 Glucose Test strips) lancets 28 gauge #100 ea 10/17/19 inhalational spacing device #1 ea 01/26/22 (Aerochamber MV spacer) pen needle, diabetic 31 gauge x 1 device miscellaneous QID e11.9 02/07/2406/09 (TechLITE Pen Needle) four times daily #400 ea pen needle, diabetic 32 gauge x #400 ea 02/07/2403/30 (TechLITE Pen Needle) albuterol sulfate 90 mcg/actuation 2 puff inhalation Q6H PRN 02/13/24 aerosol inhaler shortness of breath or wheezing #8.5 grams pen needle, diabetic 31 gauge x 1 device miscellaneous QID #400 ea 02/27/2406/09 (TechLITE Pen Needle) iron 150 mg-vit C 60 mg-folate 1 1 tab PO BID #60 tabs 04/10/24 [id number]-hjjl-gcrqkvjj-zewsndb tablet (Niferex (Sumalate-Quatrefolic)) atorvastatin 20 mg tablet 20 mg PO QPM #90 tabs 05/13/24 lisinopril 10 mg tablet 10 mg PO DAILY #90 tabs 05/28/24 insulin degludec 200 unit/mL (3 See Rx Instructions .Route 09/02/24 mL) subcutaneous pen (Tresiba .COMPLEX #27 mL FlexTouch U-200 insulin) amlodipine 5 mg tablet 5 mg PO DAILY #90 tabs 09/24/24 Humalog KwikPen Insulin 100 See Rx Instructions subcut TID #30 11/18/24 unit/mL subcutaneous (insulin mL lispro) pen needle, diabetic 31 gauge x #360 ea 12/18/2406/09 pantoprazole 40 mg tablet,delayed 40 mg PO DAILY #90 tabs 12/23/24 release (Protonix) fluticasone furoate 200 1 inh inhalation DAILY #180 ea 01/23/25 mcg-vilanterol 25 mcg/dose inhalation powder (Breo Ellipta) sertraline 100 mg tablet (Zoloft) 50 mg (1/2 x 100 mg) PO HS #45 tabs 01/28/25 Allergies Allergy/AdvReac Type Severity Reaction Status Date / Time atropine Allergy Intermediate RASH Verified 02/21/25 09:02 clams Allergy Intermediate Violent Verified 02/21/25 09:02 diarrhea diphenoxylate Allergy Intermediate SKIN RASH Verified 02/21/25 09:02 propoxyphene Allergy Intermediate SENSITIVITY Verified 02/21/25 09:02 General Stated Complaint: Orthopedic JEAN MARIE: 4 Review of Systems All systems reviewed & are unremarkable except as noted in HPI and below Exam Narrative Exam Narrative: GENERAL APPEARANCE: Well-nourished, non-toxic, awake and alert, atraumatic, no acute distress. SKIN: Warm, pink, dry, intact, without rashes/lesions/ulcerations. HEAD: Normocephalic, atraumatic, normal hair distribution for gender/age. EYES: Normal conjunctiva, no exudates on lids/lashes. ENT: Nares patent, no circumoral cyanosis, no facial swelling NECK: Supple, trachea midline, painless cervical ROM. LUNGS/CHEST: Non-labored respirations, normal A/P diameter, symmetrical expansion, no chest wall deformity HEART (CV/PV): Regular rate, no peripheral edema, no JVD. ABDOMEN: Soft, non-distended, no guarding. MSK: Moving all extremities without weakness, no cyanosis, spine midline without tenderness, normal curvature. R HAND: mild tenderness to the right hand carpal bones ulnar aspect, no crepitus, no large swelling or deformity, no ecchymosis, right radial pulse 2+, mechanical field engineer strength 5/5, sensation intact, brisk capillary refill, no elbow tenderness, full range of motion at shoulder, Tinel's negative NEURO: Mental Status AAOx4 - alert to person, place, time, events No facial droop, no forehead involvement. Motor: No focal weakness - strength 5/5 in bilateral UEs and LEs, proximal and distal, symmetric. Sensory: sensation intact to light touch globally. Gait normal: patient ambulated without ataxia into ED room. PSYCH: euthymic, cooperative, pleasant, appropriate speech Course Vital Signs Vital signs: Vital Signs Pulse 74 02/21/25 08:59 Respiratory Rate 18 02/21/25 08:59 Blood Pressure 176/49 H 02/21/25 08:59 Pulse Oximetry 98 02/21/25 08:59 Pulse 74 02/21/25 08:59 Respiratory Rate 18 02/21/25 08:59 Blood Pressure 176/49 H 02/21/25 08:59 Pulse Oximetry 98 02/21/25 08:59 Medical Decision Making This dictation utilizes rgwfg-ad-ddpt dictation software and may contain unedited grammatical errors. 79 year-old female presents to ED today by POV/ambulating with a chief complaint of right hand pain, patient is right-hand dominant, with onset after possibly sleeping on it wrong last night- denies trauma, sent down from [facility] for workup. Quality described as aching pain focal in the ulnar aspect, no radiation to complete numbness, tingling, bruising, endorses mild swelling, denies redness or lesion, endorses sometime the pain travels up her arm. Severity is described as moderate. Palliating factors include nothing attempted. Provoking factors include nothing specific. Patients' medical history: Pulmonary hypertension, asthma, anemia, UTI, diabetes mellitus. Family and social history: Noncontributory. Pertinent exam findings / vital signs include mild tenderness to the right hand carpal bones ulnar aspect, no crepitus, no large swelling or deformity, no ecchymosis, right radial pulse 2+, mechanical field engineer strength 5/5, sensation intact, brisk capillary refill, no elbow tenderness, full range of motion at shoulder, Tinel's negative Differential / pathologies of concern include sprain/strain, arthritis, fracture, carpal tunnel syndrome. Diagnostic studies of: - XR R hand and wrist-degenerative changes seen. Interventions of: - Recommend lesr-hqd-ofkrwgg wrist brace and Voltaren gel, Ortho follow-up for failure to improve. ED Course/Assessment/Plan: 7-year-old female presents from [facility] with right hand pain atraumatic, has degenerative changes on x-ray, neurovascularly intact, do suspect she has exacerbation of arthritis due to sleeping with her hand in an odd position last night with no emergent findings to need emergent intervention from orthopedics, counseled using Voltaren gel as well as Tylenol as needed and an dzsp-apx-uavyvrt wrist brace for trial of relief. Findings not consistent with fracture or neurovascular compromise. Disposition of arthritis of right hand. Patient verbalized understanding of the plan and return to ED criteria and engaged in shared decision making. Medical Records Medical records reviewed: Yes I reviewed the patient's medical records. Imaging Data Radiologic Study: Attestation: I personally reviewed and interpreted this imaging study as follows: Imaging: X-Ray Radiologist's impression: Exam(s) XR HAND RT COMPLETE XR WRIST RT COMPL NAVICULAR EXAM: XR WRIST RT COMPL NAVICULAR CLINICAL HISTORY: R hand/wrist pain. TECHNIQUE: 2D digital imaging was performed. Three views. COMPARISON: CR XR HAND RT COMPLETE from 02/21/2025 FINDINGS: BONES: No acute fracture is present. No bony destructive lesion is seen. JOINTS: Severe degenerative changes at the 1st carpal metacarpal joint. Degenerative changes of the interphalangeal joints of the fingers and metacarpophalangeal joints. SOFT TISSUE: Vascular calcifications. IMPRESSION: Degenerative changes. No acute abnormality. 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 Patricia Espinoza [facility] [phone] Radiation Oncologist- Dr. Khurram Burns [facility] [phone] Anterior communicating artery aneurysm (Acute) Sensory hearing loss, bilateral (Chronic 01/13/14) Right lumbar radiculopathy (Chronic 05/26/14) pseudospondylolistheis degenerative changes Essential hypertension (Chronic 02/22/13) Diverticulosis of colon without diverticulitis (Chronic 04/12/13) Diabetes mellitus (Chronic 07/30/13) new DM 08/07 Depressive disorder (Chronic) Medical History (Updated 02/21/25 @ 09:38 by ALEXUS Flores) Pulmonary hypertension Pulmonary air trapping see PFT 03/14/24 Cough Asthma Cataract Hair follicle infection Aortic stenosis Actinic keratoses Knee pain, bilateral VIERA (dyspnea on exertion) SOB (shortness of breath) on exertion Brain aneurysm repaired 05/2019 Low iron stores Anemia UTI (urinary tract infection) Incidental pulmonary nodule, > 3mm and < 8mm Aortic valve calcification Acute meniscal tear, lateral (08/08/07) Chondromalacia (08/08/07) Closed fracture of humerus (08/23/12) Closed fracture of skull (02/23/91) Plantar fasciitis Sciatica Plantar fasciitis Sciatica Closed fracture of skull 02/23/91 Acute meniscal tear of right knee 08/08/07 Seen by Eder Bee MD [facility], 07/23/07 Chondromalacia, right knee 08/08/07 Seen by Eder Bee MD [facility], 07/23/07 Closed fracture of humerus 08/23/12 URI, acute (12/25/14) Right hip pain (11/24/16) RLQ fullness (08/23/12) Hemorrhoids (04/12/13) Heart murmur systolic murmur, 1+ mitral regurge, 1+ tricuspid regurge Seasonal allergic rhinitis Essential hypertension Surgical History History of esophagogastroduodenoscopy (EGD) (~07/2020) History of colonoscopy (~07/2020) Status post Mohs surgery (~03/12/19) [facility] History of shoulder surgery Status post laparoscopic hysterectomy Status post total knee replacement S/P laparoscopic hysterectomy 03/27/85 ovaries remain S/p total knee replacement, bilateral 03/27/09 H/O shoulder surgery 05/26/11 , Ectopic 1972 & 1975 PROCEDURES RIGHT SHOULDER SURGERY 06/05 Skull fracture 1991 Hysterectomy, Laproscopic (~1985) HAS OVARIES Family History Mother , OLD AGE at age 89. Alcohol abuse Asthma Father , MRSA at age 89. Personal history of malignant neoplasm PROSTATE/LYMPHOMA MRSA infection Sister Diabetes Essential hypertension Depression Heart disease Hyperlipidemia Brother Substance abuse Alcohol abuse Personal history of malignant neoplasm SQUAMOUS CARCINOMA Asthma Brother Personal history of malignant neoplasm PROSTATE Grandmother Personal history of malignant neoplasm FAMILY HISTORY Glaucoma Daughter Asthma Social History Smoking/Tobacco Use Status: Former Tobacco Use tobacco type: cigarettes Quit Date: 03/27/72 Pack-years: 9 Tobacco: How many years used: 9 Second Hand Exposure: No Smoking risk assessment performed?: Yes Alcohol Intake: current Alcohol Intake frequency: a few times a month Alcohol type: beer and wine Drug use: Never Substance use type: does not use Adopted: No Caregiver/Support person: No Household members: none Housing: house Number of Children: 2 number of grandchildren: 11 Communication Needs: Hard of Hearing Education Level: college Details: BS + 30 credits of grad school Do you need help understanding health information?: Never current occupation: retired teacher Pets and animals: Yes Pets and animals: cat(s) Sexually active: No Do you think of yourself as: straight/heterosexual Current gender identity: female What is your relationship status?: How often do you talk on the phone with friends or family?: three or more times per week How often do you get together with friends or relatives?: three or more times per week How often do you attend scientology or congregation services?: decline to answer Do you belong to any clubs or organized social groups?: yes Panel score (0-1 are the most socially isolated patients): 2 What type of physical activity do you participate in: walking, swimming and other Details: skiing, stretching Duration: 30-45 minutes/day Frequency: daily Gavi/Adventist: Non moravian Special gavi needs: No Seatbelt use: always Helmet use: Yes Helmet use: always Drive intox or ride w/intox wagon driver: No Firearms in home: No Do you feel safe at home: Yes Additional Social history: lives alone
[2025-02-21 09:48] VITALS: BP 178/46; PULSE 75; RESP 16; O2SAT 98
== END 2025-02-21 09:50 | disposition home or self-care (01) ==
PROVIDERS: Emergency Provider Physician Assistant; PCP Family Medicine
DX: M19.041 Primary osteoarthritis, right hand (principal)
CPT/HCPCS: 99284; 73110; 73130; 99283